=== PATIENT | male | born 1955 | race Caucasian/White ===

== ENCOUNTER 2017-05-20 22:42 | Inpatient (IN) | payer MEDICARE, SELFPAY ==
[2017-05-20 22:45] VITALS: BP 86/35; PULSE 105; RESP 15; O2SAT 97; BMI 45.0
[2017-05-20 22:54] VITALS: BP 126/43; PULSE 109; RESP 22; O2SAT 97
[2017-05-20 22:58] VITALS: O2SAT 97
--- NOTE | 2017-05-20 23:01 | CT_ITS ---
STUDY: CT ABDOMEN AND PELVIS WITHOUT CONTRAST REASON FOR EXAM: Male, 62 years old. Right groin pain. Difficulty with urination RADIATION DOSAGE (If Supplied By Facility): CTDIvol = ( 24.18 ) mGy, DLP = ( 1328.96 ) mGycm TECHNIQUE: Transaxial images were obtained from the dome of the diaphragm to the symphysis pubis without oral contrast, and without intravenous contrast. Sagittal and coronal images were reconstructed. Individualized dose optimization techniques were used for this CT. COMPARISON: None. FINDINGS: Mild by basilar dependent atelectasis versus scar formation. Calcified nodule abutting the right posterior lateral pleura. The visualized portions of the heart are within normal limits. Normal liver. Normal gallbladder and extrahepatic biliary system. Normal spleen. Normal pancreas. Normal bilateral adrenal glands. Normal right kidney. Normal left kidney. Normal ureters. Normal visualized stomach. Normal small intestine. Normal colon. The appendix is visualized and appears normal. Normal abdominal aorta. Normal inferior vena cava. Shotty root of the mesentery and retroperitoneal lymph nodes are noted. Normal urinary bladder. Uterus is surgically absent. No free pelvic fluid Normal abdominal wall. Multilevel degenerative change of the spine. Postoperative change from L4-S1 anterior spinal fusion. CT/Abdomen/Pelvis without Cont IMPRESSION: 1. Shotty root of the mesentery and mesenteric retroperitoneal lymph nodes, likely reactive in nature. Continued surveillance is recommended to rule out the possibility of a metastatic process. Electronically Signed: Jacob Allen MD at 1:22 EST Tel , Service support ,
--- NOTE | 2017-05-20 23:01 | EKG12_ITS ---
Test Reason : WEAKNESS Blood Pressure : / mmHG Vent. Rate : 102 BPM Atrial Rate : 102 BPM P-R Int : 160 ms QRS Dur : 094 ms QT Int : 354 ms P-R-T Axes : 060 053 057 degrees QTc Int : 461 ms Sinus tachycardia Otherwise normal ECG Confirmed by MELINA CARPENTER, SANTA ([id number]), writer editor MARCO PERRY ([id number] on 05/23/2017 3:50:47 PM Referred By: BB Confirmed By:SANTA SUMMERS MD
--- NOTE | 2017-05-20 23:03 | ED.VISSUMM ---
- ER Visit Summary Date of Service: 05/20/17 Chief Complaint: Abdominal pain History of Present Illness: The patient is a 62 M with couple days of diffuse abdominal discomfort that he describes more like feeling full, bloating, pressure. It is not severe. Associated with nausea, no vomiting or fevers. He has become more short of breath than usual, he has COPD and always wheezes but states he does not feel like he is necessarily wheezing anymore, although yesterday he had an episode of coughing with some clear sputum production that was more than usual. One bout of diarrhea today without blood or melena. He has a history of several back surgeries due to degenerative disc problems and had some hardware removal, leaving him with peripheral neuropathy in his legs, for which he is on gabapentin and nortriptyline, he has had no prior abdominal surgeries. Never had this discomfort before. States that he is urinating very little despite drinking water, although he really is not eating very much. He has no other urinary symptoms and does not have symptoms of urinary retention. No hematuria. With regards to his medications, he states that his furosemide was changed about 6 months ago, he does not know why, but otherwise no recent major changes. He takes a baby aspirin daily but no anticoagulation. Physical Examination: Ill-appearing. Obese. Initial systolic blood pressure was 80, but on repeat before treatment it is 126/43. Mildly tachycardic and mildly tachypneic but in no respiratory distress. He has diffuse expiratory wheezes that are relatively mild. Heart is regular, mildly tachycardic, no murmur. Abdomen is soft, hypoactive bowel sounds, nontender throughout. Difficult to evaluate whether he has objective distention because of his obesity. His abdomen is soft. No CVA tenderness. Trace bilateral lower extremity edema that he states is chronic and stable. Test Results: Significant leukocytosis with leftward shift, acute renal failure with creatinine 3.64 and BUN 52, mild hyperbilirubinemia with otherwise normal LFTs, elevated lactate at 5.3, initial blood work included venous pH as well which was within normal limits at 7.39, I suspect due to a mixture of metabolic acidosis and respiratory alkalosis. EKG normal. CXR negative for acute finding. Emergency Department Course and Treatment: After initial evaluation, the told us that he neglected to give us some additional history regarding sores on his scrotum for the past 3 or 4 months. Discussed this with the patient and evaluated him further. He states they have been coming and going, they are painful, when it ruptures it bleeds dark blood only, and seems to get better. He said something to his doctor at the [place] who prescribed him an antifungal, no one has looked at it yet however, from a medical standpoint. He states it has been worse for the past 1-2 days, when it is sore it has bloody-watery discharge but he has noticed no pus. He states his scrotum hurts more than his abdomen. On exam, there is a superficial open sore at the right lateral upper scrotum. The entire scrotum is erythematous, he states it is tender to palpation but there is no subcutaneous emphysema or necrotic tissue or significant scrotal edema although he states he has had scrotal edema with this before. There are some areas of superficial skin erosion/irritation toward the inguinal intertriginous areas. Labs are pending, cultures and lactate are added, his venous pH is within normal limits at 7.39, and his chest x-ray is unremarkable. His blood pressure is now down into the 90s so his IV fluid is changed to bolus. He is severely claustrophobic and cannot tolerate CT. I think the benefits of obtaining abdominal and pelvic imaging in this scenario outweight the risks of mild sedation; therefore, he is being given anxiolysis with Versed prior to taking him to CT, as well as empiric triple antibiotic therapy to cover possible Michael's gangrene. However, although CT results are not back yet, upon looking at the imaging which initially did not include the scrotum so he was sent back for a repeat scan of the pelvis to include the scrotum, which was very distal to his bony pelvis because of his obesity, I do not see any subcutaneous air and so my suspicion for true Michael's is much lower. Additionally, clinically, there is no SQ emphysema and no evidence of necrotic tissue or scrotal edema or abscess. CT is still pending, discussed with Dr. Hamilton for admission to ICU. Still hypotensive after a liter of fluid so being bolused with a second liter, the third is also ordered. However, I am feeling very cautious about giving him 30 cc/kg given his obesity and renal failure, this could easily put him in the pulmonary edema. Before 2nd liter is finished, his SBP is now 98, improving. Initial CT abd/pelv basically negative except for some mild lymphadenopathy. CT pelvis returned after pt left dept; shows no SQ air, but does show scrotal skin thickening. Prior to leaving ED, and prior to completion of second liter IV fluid bolus (less than 30 cc/kg) -- repeat volume and tissue perfusion assessment: Temp 97.2, heart rate 99, blood pressure 98/55, respirations 16, pulse ox 97% on room air Heart is regular, no murmur, no tachycardia; lungs are diminished similar to prior, mild expiratory wheezing diffusely, less than before Brisk cap refill distally all 4 extremities Strong bilateral radial pulses Skin is pink, dry, well-perfused without cyanosis Treatment Plan: Critical care monitoring, empiric antibiotic therapy, further testing and evaluation inpatient Disposition: Admit ICU Impression: Septic shock Acute renal failure Scrotal cellulitis This note was generated with [employer] dictation software. It may contain incorrect words, spelling, and punctuation that were not noted in review of the chart prior to signing ED Disposition - Plan for ED Patient: Disposition: Acute Care Hospital [facility] Chief Complaint: Abd Pain
--- NOTE | 2017-05-20 23:08 | ED.DCSUM_ITS ---
- ER Visit Summary Date of Service: 05/20/17 Chief Complaint: Abdominal pain History of Present Illness: The patient is a 62 M with couple days of diffuse abdominal discomfort that he describes more like feeling full, bloating, pressure. It is not severe. Associated with nausea, no vomiting or fevers. He has become more short of breath than usual, he has COPD and always wheezes but states he does not feel like he is necessarily wheezing anymore, although yesterday he had an episode of coughing with some clear sputum production that was more than usual. One bout of diarrhea today without blood or melena. He has a history of several back surgeries due to degenerative disc problems and had some hardware removal, leaving him with peripheral neuropathy in his legs, for which he is on gabapentin and nortriptyline, he has had no prior abdominal surgeries. Never had this discomfort before. States that he is urinating very little despite drinking water, although he really is not eating very much. He has no other urinary symptoms and does not have symptoms of urinary retention. No hematuria. With regards to his medications, he states that his furosemide was changed about 6 months ago, he does not know why, but otherwise no recent major changes. He takes a baby aspirin daily but no anticoagulation. Physical Examination: Ill-appearing. Obese. Initial systolic blood pressure was 80, but on repeat before treatment it is 126/43. Mildly tachycardic and mildly tachypneic but in no respiratory distress. He has diffuse expiratory wheezes that are relatively mild. Heart is regular, mildly tachycardic, no murmur. Abdomen is soft, hypoactive bowel sounds, nontender throughout. Difficult to evaluate whether he has objective distention because of his obesity. His abdomen is soft. No CVA tenderness. Trace bilateral lower extremity edema that he states is chronic and stable. Test Results: Significant leukocytosis with leftward shift, acute renal failure with creatinine 3.64 and BUN 52, mild hyperbilirubinemia with otherwise normal LFTs, elevated lactate at 5.3, initial blood work included venous pH as well which was within normal limits at 7.39, I suspect due to a mixture of metabolic acidosis and respiratory alkalosis. EKG normal. CXR negative for acute finding. Emergency Department Course and Treatment: After initial evaluation, the told us that he neglected to give us some additional history regarding sores on his scrotum for the past 3 or 4 months. Discussed this with the patient and evaluated him further. He states they have been coming and going, they are painful, when it ruptures it bleeds dark blood only, and seems to get better. He said something to his doctor at the [place] who prescribed him an antifungal, no one has looked at it yet however, from a medical standpoint. He states it has been worse for the past 1-2 days, when it is sore it has bloody-watery discharge but he has noticed no pus. He states his scrotum hurts more than his abdomen. On exam, there is a superficial open sore at the right lateral upper scrotum. The entire scrotum is erythematous, he states it is tender to palpation but there is no subcutaneous emphysema or necrotic tissue or significant scrotal edema although he states he has had scrotal edema with this before. There are some areas of superficial skin erosion/irritation toward the inguinal intertriginous areas. Labs are pending, cultures and lactate are added , his venous pH is within normal limits at 7.39, and his chest x-ray is unremarkable. His blood pressure is now down into the 90s so his IV fluid is changed to bolus. He is severely claustrophobic and cannot tolerate CT. I think the benefits of obtaining abdominal and pelvic imaging in this scenario outweight the risks of mild sedation; therefore, he is being given anxiolysis with Versed prior to taking him to CT, as well as empiric triple antibiotic therapy to cover possible Michael's gangrene. However, although CT results are not back yet, upon looking at the imaging which initially did not include the scrotum so he was sent back for a repeat scan of the pelvis to include the scrotum, which was very distal to his bony pelvis because of his obesity, I do not see any subcutaneous air and so my suspicion for true Michael's is much lower. Additionally, clinically, there is no SQ emphysema and no evidence of necrotic tissue or scrotal edema or abscess. CT is still pending, discussed with Dr. Hamilton for admission to ICU. Still hypotensive after a liter of fluid so being bolused with a second liter, the third is also ordered. However, I am feeling very cautious about giving him 30 cc/kg given his obesity and renal failure, this could easily put him in the pulmonary edema. Before 2nd liter is finished, his SBP is now 98, improving. Initial CT abd/pelv basically negative except for some mild lymphadenopathy. CT pelvis returned after pt left dept; shows no SQ air, but does show scrotal skin thickening. Prior to leaving ED, and prior to completion of second liter IV fluid bolus ( less than 30 cc/kg) -- repeat volume and tissue perfusion assessment: Temp 97.2, heart rate 99, blood pressure 98/55, respirations 16, pulse ox 97 % on room air Heart is regular, no murmur, no tachycardia; lungs are diminished similar to prior, mild expiratory wheezing diffusely, less than before Brisk cap refill distally all 4 extremities Strong bilateral radial pulses Skin is pink, dry, well-perfused without cyanosis Treatment Plan: Critical care monitoring, empiric antibiotic therapy, further testing and evaluation inpatient Disposition: Admit ICU Impression: Septic shock Acute renal failure Scrotal cellulitis This note was generated with [email or web address] dictation software. It may contain incorrect words, spelling, and punctuation that were not noted in review of the chart prior to signing ED Disposition - Plan for ED Patient: Disposition: Acute Care Hospital [facility] Chief Complaint: Abd Pain
--- NOTE | 2017-05-20 23:15 | RAD_ITS ---
STUDY: X-RAY CHEST REASON FOR EXAM: Male, 62 years old. Shortness of breath. Dyspnea. TECHNIQUE: Single AP portable view of the chest. COMPARISON: None. FINDINGS: There is mild atelectasis in the lung bases. There is no demonstrated pulmonary infiltrate. There is no demonstrated pleural abnormality. Normal size heart. Normal mediastinum and raquel. Normal visualized pulmonary arteries. Normal visualized aortic arch and descending thoracic aorta. There are diffuse degenerative changes of the visualized thoracic spine. Normal visualized ribs, clavicles, and shoulders. There is no demonstrated abnormality of the visualized soft tissue structures of the upper abdomen. RAD/Chest 1 View (Portable) IMPRESSION: No evidence for acute cardiopulmonary pathology. Electronically Signed: Jose Guadalupe Ngo MD at 0:19 EST , Service support ,
[2017-05-20 23:16] LABS: Blood Gas Specimen Type VEN; O2 Delivery Device Room Air; SITE R Brachial; Time Given 2312; VBG BASE EXCESS -3 mmol/L (-1.0-3.5); VBG Bicarbonate 22 mmol/L (22-26); VBG Oxygen Content 23 mmol/L (23-33); VBG PO2 48 mmHg (25-40); VBG SO2 83 % (50-70); VBG pH 7.39 (7.32-7.42)
[2017-05-20] MEDS: 0.9% Normal Saline 1,000 ML 125 ML IV (23:16)
[2017-05-20] MEDS: Ondansetron 4 MG/2 ML Vial IV (23:16)
[2017-05-20 23:30] LABS: ALB/GLOB Ratio 0.5 RATIO (0.9-2.4); AST(SGOT) 34 U/L (15-37); Alanine Aminotransfer ALT/SGPT 60 U/L (16-61); Albumin, Serum 2.5 g/dL (3.2-5.0); Alkaline Phosphatase 52 U/L (45-117); Anion Gap 14 (5-15); BUN 52 mg/dL (7-18); BUN/Creat Ratio 14.3 RATIO (10-20); Calcium,Total 8.1 mg/dL (8.5-10.1); Chloride 98 mmol/L (98-107); Creatinine, Serum 3.64 mg/dL (0.70-1.30); EST Glomerular Filtration Rate 18 mL/min (>60); Est Glom Filt Rate - Afr Amer 22 mL/min (>60); Estimated Creatinine Clearance 25.47 ml/min; Globulin 5.3 g/dL (2.2-4.2); Glucose 177 mg/dL (74-106); Lipase 98 U/L (73-393); Potassium 4.7 mmol/L (3.5-5.1); Protein, Total 7.8 g/dL (6.4-8.2); Sodium Level 133 mmol/L (136-145)
[2017-05-20 23:36] LABS: Absolute Lymphocyte Count 0.87 X10^3/ul (0.83-4.51); Absolute Neutrophil Count 12.3 X10^3/uL (2.0-7.7); Basophil# 0.03 X10^3/uL; Basophil% 0.2 % (0-1); Eosinophil# 0.52 X10^3/uL; Eosinophils% 3.6 % (0-5); Hematocrit 40.2 % (40-54); Hemoglobin 13.4 g/dl (13.0-16.5); Lymphocyte # 0.87 X10^3/ul (4.0); Mean Corp Hgb Conc 33.3 g/gl (32-36); Mean Platelet Vol. 10.8 fl (6.2-12.0); Monocyte# 0.64 X10^3/uL; Monocyte% 4.4 % (0-10); Neutrophil # 12.29 X10^3/uL (2.7-7.7); Neutrophil % 85.5 % (47-70); Platelet Count 172 K/mm3 (150-450); RBC Distribution Width CV 14.1 % (11.6-14.6); RBC Distribution Width SD 50.6 fl (35.1-43.9); Red Blood Count 4.06 M/mm3 (4.6-6.2); White Blood Count 14.4 K/mm3 (4.4-11.0)
[2017-05-20 23:43] LABS: POSITIVE COUNT NO; POSITIVE DIFFERENTIAL NO; POSITIVE MORPHOLOGY NO
[2017-05-20] MEDS: Midazolam 2 MG/2 ML Syringe 3 MG IV (23:47)
[2017-05-21] VITALS (27 sets, daily range): BP systolic 82–114; BP diastolic 49–70; PULSE 96–109; RESP 16–26; TEMP 36.1–37.1; O2SAT 89–99; BMI 46.7
--- NOTE | 2017-05-21 00:31 | CT_ITS ---
STUDY: CT PELVIS WITHOUT CONTRAST REASON FOR EXAM: Male, 62 years old. Scrotal pain and swelling RADIATION DOSAGE (If Supplied By Facility): CTDIvol = ( 28.21 ) mGy, DLP = ( 2356.95 ) mGycm TECHNIQUE: Transaxial imaging of the pelvis was performed with oral contrast, and without intravenous administration of contrast material. Individualized dose optimization techniques were used for this CT. COMPARISON: None. FINDINGS: Normal urinary bladder. No free pelvic fluid. Normal visualized small intestine. Minimal diverticulosis of the sigmoid colon without focal inflammation. The appendix is not definitively visualized. There is no pericecal inflammation. There is no pelvic fluid. There is no pelvic mass lesion or lymphadenopathy. Atherosclerotic calcification of the pelvic vasculature. Normal abdominal wall. Mild skin thickening of the scrotum. Multilevel degenerative change of the visualized lower lumbar spine. CT/Pelvis without IV Contrast IMPRESSION: 1. Mild sigmoid colonic diverticulosis with no CT evidence of acute articularis. 2. Mild skin thickening of the scrotum. Electronically Signed: Jacob Allen MD at 2:22 EST Tel , Service support ,
--- NOTE | 2017-05-21 00:32 | ED.RN ---
MD AWARE OF BP.
[2017-05-21 01:09] LABS: Lactic Acid 5.3 mmol/L (0.4-2.0)
--- NOTE | 2017-05-21 01:26 | ED.RN ---
THIS RN RECEIVED A CALL FROM LAB, PT LACTIC ACID LEVEL 5.3. DR. MARTINEZ AND ROSSY DEVRIES INFORMED.
[2017-05-21] MEDS: 0.9% Normal Saline 1,000 ML 999 ML IV ×2 (01:27→01:34)
[2017-05-21 01:28] LABS: Bacteria 0 SEEN /hpf (None Seen); Mucous, Urine 0 SEEN /hpf (<or=2+)
[2017-05-21 01:31] LABS: Color, Urine Amber (Yellow); Glucose, Dipstick Normal (Normal); Ketone-Dipstick 5 mg/dl (Negative); Leukocyte Esterase-Dipstick 100 /ul (Negative); Nitrite-Dipstick Positive (Negative); Occult Blood-Urine 10 /ul (Negative); Protein-Dipstick 30 mg/dl (Negative); Specific Gravity, Urine 1.025 (1.002-1.030); Urine Clarity Sl. Cloudy (Clear); Urine Urobilinogen 8 mg/dl (Normal)
[2017-05-21 01:37] LABS: Urine Bilirubin Dipstick 6 mg/dL (Negative)
--- NOTE | 2017-05-21 01:38 | PCM.HP.STD ---
Problem List (1) DMII (diabetes mellitus, type 2) Status: Acute (2) Severe sepsis Status: Acute (3) Cellulitis Status: Acute (4) HTN (hypertension) Status: Chronic History of Present Illness Date of Admission: 05/21/17 Chief Complaint: Severe sepsis The patient is a 62 year old male w/ h/o DMII, HTN, COPD, and cellulits is admitted for severe sepsis secondary to cellulitis. He has been treated by his PCP for scrotal cellulitis. He noted occasional bloody drainage at the cellulitis site. Nothing appeared to make it better or worse despite taking the antifungal cream. He also has worsening bloating sensation in his abdominal area. Bloating has gotten worse in the last few hours. Bloating caused dull-aching pain and was severe. Bloating was also associated with nausea. He denies any chill. He also noted minimal UOP but he also had limited fluid intake. He went to the ED for further evaluation. Past Medical History Past Medical History (Chronic Problems): Chronic Problems HTN (hypertension) (Chronic) Allergies Penicillins [PCN] Allergy (Verified 05/20/17 22:47) Anaphylaxis shellfish derived Allergy (Verified 11/09/15 17:13) Rash Home Medications: Ambulatory Orders Medication Instructions Recorded Aspirin 81 mg PO DAILY 05/20/17 Atorvastatin Calcium 40 mg PO QHS 05/20/17 Cholecalciferol (Vitamin D3) 5,000 unit PO DAILY 05/20/17 [Vitamin D3] Folic Acid 0.4 mg PO DAILY 05/20/17 Furosemide [Lasix] 20 mg PO DAILY 05/20/17 Gabapentin [Neurontin] 600 mg PO TID 05/20/17 Glipizide [Glucotrol] 10 mg PO DAILY 05/20/17 Lisinopril [Zestril] 20 mg PO DAILY 05/20/17 Metformin HCl 1,000 mg PO BID 05/20/17 Nortriptyline HCl 20 mg PO BID 05/20/17 Surgical History: noncontributory Smoking Status: Current every day smoker Alcohol: None Drugs: None - *Family History Maternal History Items: No pertinent history Review of Systems Constitutional: Denies: Chills, Fever, Weight Change HEENT: Denies: Head Aches, Sinus Congestion, Sinus Drainage Cardiovascular: Denies: Chest Pain, Palpitations Respiratory: Denies: Cough, Shortness of breath at rest, Sputum production Gastrointestinal: Reports: Abdominal Pain, Nausea, Vomiting Genitourinary: Reports: Retention. Denies: Dysuria Musculoskeletal: Denies: Joint Pain, Joint Tenderness Skin: Denies: Rash, Wounds Neurological: Denies: Numbness, Tingling, Focal weakness Psychiatric: Denies: Anxiety, Depression, Homicidal Ideations, Suicidal Ideations Hematologic/ Lymphatic: Denies: Easy Bruising, Easy Bleeding VTE Information - Inpt Only VTE Present on Admission: No VTE Mechan Device Prophylaxis: SCD's VTE Pharm Prophylaxis ordered?: Yes Patient Problems: Active and Suspected Problems DMII (diabetes mellitus, type 2) (Acute) Severe sepsis (Acute) Cellulitis (Acute) - Physical Exam General: Alert, Oriented x3, Cooperative HEENT: Atraumatic, PERRLA, EOMI, Normocephalic Neck: Supple, No JVD, Negative Carotid Bruits Lungs: Clear to auscultation, Normal air movement Cardiovascular: Regular rate, No murmurs Abdomen: Bowel Sounds Present, Soft, Non Tender Extremities: No edema, Capillary Refill Less than 3 Seconds Skin: No rashes, No breakdown Musculoskeletal: No Tenderness to Palpation of Joints or Extremities Neurological: Cranial nerves II-XII grossly intact Psych/Mental Status: Normal Affect, Appropriate Vital Signs Pulse Resp BP Pulse Ox 96 25 H 82/50 L 96 05/21/17 01:00 05/21/17 01:00 05/21/17 01:00 05/21/17 01:00 Oxygen Delivery Method Room Air Weight: 163.293 kg Body Mass Index (BMI) 45.0 Laboratory Tests Past 24 Hrs 05/20/17 05/20/17 05/20/17 01:20 23:05 23:05 WBC 14.4 H RBC 4.06 L Hgb 13.4 Hct 40.2 MCV 99.0 H MCH 33.0 H MCHC 33.3 RDW 14.1 RDW Differential 50.6 H Plt Count 172 MPV 10.8 Immature Gran % (Auto) 0.300 Neut % (Auto) 85.5 H Lymph % (Auto) 6.0 L [place] % (Auto) 4.4 Eos % (Auto) 3.6 Baso % (Auto) 0.2 Absolute Neuts (auto) 12.3 H Absolute Lymphs (auto) 0.87 Total Counted Not Reportable Specimen Type Sample Site VBG pH VBG pO2 VBG O2 Sat (Calc) VBG O2 Content VBG Base Excess POC Mix VBG pCO2 Pt Tmp O2 Delivery Device Blood Gas Notified Whom Blood Gas Notified Time Sodium 133 L Potassium 4.7 Chloride 98 Carbon Dioxide 21.0 Anion Gap 14 BUN 52 H Creatinine 3.64 H Estim Creat Clear Calc 25.47 Est GFR (MDRD) Af Amer 22 L Est GFR (MDRD) Non-Af 18 L BUN/Creatinine Ratio 14.3 Glucose 177 H Lactic Acid Calcium 8.1 L Total Bilirubin 1.30 H AST 34 ALT 60 Alkaline Phosphatase 52 Troponin I < 0.02 Total Protein 7.8 Albumin 2.5 L Globulin 5.3 H Albumin/Globulin Ratio 0.5 L Lipase 98 Urine Color Brenda Urine Clarity Sl. Cloudy Urine pH 5.0 Ur Specific [place] 1.025 Urine Protein 30 H Urine Glucose (UA) Normal Urine Ketones 5 H Urine Occult Blood 10 H Urine Nitrite Positive H Urine Bilirubin 6 H Urine Urobilinogen 8 H Ur Leukocyte Esterase 100 H Urine RBC Pending Urine WBC Pending Ur Squamous Epith Cells Pending Urine Bacteria Pending Urine Mucus Pending 05/20/17 05/20/17 23:05 23:13 WBC RBC Hgb Hct MCV MCH MCHC RDW RDW Differential Plt Count MPV Immature Gran % (Auto) Neut % (Auto) Lymph % (Auto) [place] % (Auto) Eos % (Auto) Baso % (Auto) Absolute Neuts (auto) Absolute Lymphs (auto) Total Counted Specimen Type [place] Sample Site R Brachial VBG pH 7.39 VBG pO2 48 H VBG O2 Sat (Calc) 83 H VBG O2 Content 23 VBG Base Excess -3 L POC Mix VBG pCO2 Pt Tmp 37.0 L O2 Delivery Device Room Air Blood Gas Notified Whom ED Blood Gas Notified Time 2312 Sodium Potassium Chloride Carbon Dioxide Anion Gap BUN Creatinine Estim Creat Clear Calc Est GFR (MDRD) Af Amer Est GFR (MDRD) Non-Af BUN/Creatinine Ratio Glucose Lactic Acid 5.3 H* Calcium Total Bilirubin AST ALT Alkaline Phosphatase Troponin I Total Protein Albumin Globulin Albumin/Globulin Ratio Lipase Urine Color Urine Clarity Urine pH Ur Specific [place] Urine Protein Urine Glucose (UA) Urine Ketones Urine Occult Blood Urine Nitrite Urine Bilirubin Urine Urobilinogen Ur Leukocyte Esterase Urine RBC Urine WBC Ur Squamous Epith Cells Urine Bacteria Urine Mucus Assessment/Plan Active and Suspected Problems DMII (diabetes mellitus, type 2) (Acute) Severe sepsis (Acute) Cellulitis (Acute) 62 year old male w/ h/o DMII, HTN, COPD, and cellulits is admitted for severe sepsis secondary to cellulitis. 1) Severe sepsis secondary to cellulitis: Scrotal cellulitis noted. Less likely Michael's gangrene. CT abd/pelv basically negative except for some mild lymphadenopathy. Will start aztreonam, flagyl and vancomycin for triple antibiotic coverage. Hydration but with caution given ARF. Probably can transfer out of ICU once hypotension resolves. 2) ARF: Most likely secondary to ischemic injury secondary to relative hypotension from sepsis and meds. Will hold SBP meds. Allow for permissive HTN for renal perfusion. Hydration. Supportive care, renal dose meds, avoid nephrotoxic drugs, etc. 3) Lactic acidosis: Will repeat level. Hydration. Supportive care. 4) Chronic issues: DMII: hold metformin given lactic acidosis and ARF. COPD: Resume home meds. 5) Prophylaxis: SCD / heparin.
[2017-05-21 01:39] LABS: Hyaline Cast 5-10 SEEN /lpf (0-5)
[2017-05-21 01:40] LABS: Amorphous Sediment 2+; Red Blood Cells-Urine 0-5 SEEN /hpf (0-5); Squamous Epithelial Cells - UA 0-5 SEEN /hpf (0-5); White Blood Cells 0-5 SEEN /hpf (0-5)
[2017-05-21 04:10] LABS: Reflex Lactate? Y
[2017-05-21 04:44] LABS: Lactic Acid 1.2 mmol/L (0.4-2.0)
[2017-05-21 04:50] LABS: Hematocrit 37.1 % (40-54); Hemoglobin 12.3 g/dl (13.0-16.5); Mean Corp Hgb Conc 33.2 g/gl (32-36); Mean Corpuscular Volume 99.5 fL (80-94); Mean Platelet Vol. 10.6 fl (6.2-12.0); Platelet Count 137 K/mm3 (150-450); RBC Distribution Width CV 14.2 % (11.6-14.6); RBC Distribution Width SD 51.1 fl (35.1-43.9); Red Blood Count 3.73 M/mm3 (4.6-6.2); White Blood Count 11.3 K/mm3 (4.4-11.0)
[2017-05-21 05:00] LABS: Scan Indicated on CBC? Y/N NO
[2017-05-21 05:04] LABS: Anion Gap 4 (5-15); BUN 50 mg/dL (7-18); BUN/Creat Ratio 17.3 RATIO (10-20); Calcium,Total 7.4 mg/dL (8.5-10.1); Chloride 103 mmol/L (98-107); Creatinine, Serum 2.89 mg/dL (0.70-1.30); EST Glomerular Filtration Rate 24 mL/min (>60); Est Glom Filt Rate - Afr Amer 29 mL/min (>60); Estimated Creatinine Clearance 32.08 ml/min; Glucose 179 mg/dL (74-106); Potassium 4.1 mmol/L (3.5-5.1); Sodium Level 132 mmol/L (136-145)
[2017-05-21] MEDS: 0.9% Normal Saline 1,000 ML 125 ML IV ×3 (05:22→23:06)
[2017-05-21 05:32] LABS: Probe Check PASS
[2017-05-21 05:33] LABS: M R Staph aureus DNA By PCR POSITIVE (Negative)
--- NOTE | 2017-05-21 06:35 | PCM.CON.CC ---
Reason for Consult Date of Consultation: 05/21/17 Reason for Consultation: Sepsis History of Present Illness: The patient is a 62-year-old male, with a history as outlined below, who presented to the emergency department on May 20 with a number of nonspecific, generalized complaints, including malaise, fatigue, dizziness, abdominal discomfort, scrotal discomfort and decreased urinary output. The patient states that he has a known history of COPD of unknown severity. 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 He utilizes Symbicort and Spiriva on an outpatient basis. He also reports a history of obstructive sleep apnea, for which she is noncompliant with the use of nocturnal PAP therapy. The patient denies nausea, vomiting or diarrhea. He does report decreased p.o. intake over the last several days. On presentation to the emergency department, the patient was noted to have a blood pressure of 86/35 and was mildly tachycardic. He was, nonetheless, maintaining appropriate oxygen saturations on room air. Initial laboratory evaluation revealed elevated white blood cell count of 14,000. Chemistry profile was notable for a creatinine of 3.64 with a BUN of 52. The patient did have an elevated serum lactate level to 5.3. MRSA screen was positive. Urinalysis was notably positive for nitrites and leukocyte esterase. However, no bacteria was identified. The patient received supplemental IV fluid hydration and his blood pressures responded accordingly. He was started on antibiotics over concern for scrotal cellulitis. The patient was subsequently transferred to the medical intensive care unit for ongoing management. Past Medical History Past Medical History (Chronic Problems): Chronic Problems HTN (hypertension) (Chronic) Allergies Penicillins [PCN] Allergy (Verified 05/20/17 22:47) Anaphylaxis shellfish derived Allergy (Verified 11/09/15 17:13) Rash Home Medications: Ambulatory Orders Medication Instructions Recorded Aspirin 81 mg PO DAILY 05/20/17 Atorvastatin Calcium 40 mg PO QHS 05/20/17 Cholecalciferol (Vitamin D3) 5,000 unit PO DAILY 05/20/17 [Vitamin D3] Folic Acid 0.4 mg PO DAILY 05/20/17 Furosemide [Lasix] 20 mg PO DAILY 05/20/17 Gabapentin [Neurontin] 600 mg PO TID 05/20/17 Glipizide [Glucotrol] 10 mg PO DAILY 05/20/17 Lisinopril [Zestril] 20 mg PO DAILY 05/20/17 Metformin HCl 1,000 mg PO BID 05/20/17 Nortriptyline HCl 20 mg PO BID 05/20/17 Budesonide/Formoterol 160/4.5 2 puff IH BID 05/21/17 Tiotropium [place] [Spiriva 2 puff IH DAILY 05/21/17 Respimat] Surgical History: noncontributory Smoking Status: Current every day smoker Alcohol: None Drugs: None - *Family History Maternal History Items: No pertinent history Review of Systems Constitutional: Reports: Malaise, Weakness, Fatigue Eyes: Denies: Blurred vision, Double vision HEENT: Denies: Head Aches, Sinus Congestion, Sinus Drainage Cardiovascular: Denies: Chest Pain, Palpitations Respiratory: Reports: Shortness of breath upon exertion Gastrointestinal: Reports: Abdominal Pain. Denies: Diarrhea, Nausea, Vomiting Genitourinary: Reports: Retention Musculoskeletal: Denies: Joint Pain, Joint Tenderness Skin: Reports: Rash Neurological: Denies: Numbness, Tingling, Focal weakness Psychiatric: Denies: Anxiety, Depression, Homicidal Ideations, Suicidal Ideations Hematologic/ Lymphatic: Denies: Easy Bruising, Easy Bleeding Patient Problems: Active and Suspected Problems DMII (diabetes mellitus, type 2) (Acute) Severe sepsis (Acute) Cellulitis (Acute) Objective: The patient's most recent lab work, culture data and imaging studies have all been personally reviewed. Blood and urine cultures are pending. CT abdomen/pelvis without contrast revealed mesenteric retroperitoneal lymph nodes, likely reactive in nature. CT pelvis without IV contrast revealed mild sigmoid colonic diverticulosis along with mild skin thickening of the scrotum. - Physical Exam General: Alert, Cooperative, No apparent distress HEENT: Atraumatic, PERRLA, Normocephalic Oral: No Gingival or Mucosal Lesions/ Ulcerations, Dry Mucosa Neck: Supple, No Nodes, Trachea Midline, - - Large neck circumference with redundant soft tissue Lungs: No rhonchi, No wheeze, No rales, Diminished Cardiovascular: Regular rate, Regular Rhythm, Normal S1, Normal S2, No murmurs Abdomen: Bowel Sounds Present, Soft, Non Tender, Obese Extremities: No clubbing, No cyanosis, - - Trace pedal edema Skin: - - Venous stasis dermatitis, scrotal cellulitis/maceration Musculoskeletal: No Muscle Wasting Lymphatic: No Cervical, Supraclavicular, or Inguinal Adenopathy Neurological: Neuro grossly intact Psych/Mental Status: Normal Affect, Appropriate Vital Signs Temp Pulse Resp BP Pulse Ox 97.2 F L 101 H 21 H 99/60 96 05/21/17 06:00 05/21/17 06:00 05/21/17 06:00 05/21/17 06:00 05/21/17 06:00 Oxygen Delivery Method Room Air Weight: 373 lb 14.464 oz Body Mass Index (BMI) 46.7 Intake and Output for Last 24 Hours 05/19/17 05/20/17 05/21/17 23:59 23:59 23:59 Intake Total 1512 / 1512 Output Total 1000 / 1000 Balance 512 / 512 Laboratory Tests Past 24 Hrs 05/21/17 05/21/17 05/21/17 02:30 04:05 04:05 WBC 11.3 H RBC 3.73 L Hgb 12.3 L Hct 37.1 L MCV 99.5 H MCH 33.0 H MCHC 33.2 RDW 14.2 RDW Differential 51.1 H Plt Count 137 L MPV 10.6 Sodium 132 L Potassium 4.1 Chloride 103 Carbon Dioxide 25.0 Anion Gap 4 L BUN 50 H Creatinine 2.89 H Estim Creat Clear Calc 32.08 Est GFR (MDRD) Af Amer 29 L Est GFR (MDRD) Non-Af 24 L BUN/Creatinine Ratio 17.3 Glucose 179 H Lactic Acid Calcium 7.4 L MRSA (PCR) POSITIVE H 05/21/17 04:05 WBC RBC Hgb Hct MCV MCH MCHC RDW RDW Differential Plt Count MPV Sodium Potassium Chloride Carbon Dioxide Anion Gap BUN Creatinine Estim Creat Clear Calc Est GFR (MDRD) Af Amer Est GFR (MDRD) Non-Af BUN/Creatinine Ratio Glucose Lactic Acid 1.2 Calcium MRSA (PCR) Clinical Impression(s) from Imaging Studies Abdomen/Pelvis CT 05/20/17 23:01 IMPRESSION: 1. Shotty root of the mesentery and mesenteric retroperitoneal lymph nodes, likely reactive in nature. Continued surveillance is recommended to rule out the possibility of a metastatic process. Electronically Signed: Jacob Allen MD at 1:22 EST Tel , Service support , Chest X-Ray 05/20/17 23:15 IMPRESSION: No evidence for acute cardiopulmonary pathology. Electronically Signed: Jose Guadalupe Ngo MD at 0:19 EST , Service support , Pelvis CT 05/21/17 00:31 IMPRESSION: 1. Mild sigmoid colonic diverticulosis with no CT evidence of acute articularis. 2. Mild skin thickening of the scrotum. Electronically Signed: Jacob Allen MD at 2:22 EST Tel , Service support , Assessment/Plan Active and Suspected Problems DMII (diabetes mellitus, type 2) (Acute) Severe sepsis (Acute) Cellulitis (Acute) RECOMMENDATIONS: 1. Continue antibiotics 2. Supplemental IV fluid hydration 3. Continue aerosol treatments 4. Recommend empiric BiPAP utilization with naps and nightly 5. Subcutaneous heparin for DVT prophylaxis 6. The patient is stable for transfer out of the intensive care unit IMPRESSIONS: 1. Lactic acidemia secondary to intravascular volume depletion Serum lactate normalized with IV fluid hydration. 2. Mild scrotal cellulitis Continue antibiotics as ordered along with local skin care. 3. Acute on possible chronic renal insufficiency Secondary to intravascular volume depletion. Creatinine has improved following IV fluid hydration. Sahu catheter remains in place. Continue to monitor urine output accordingly. No indication for renal replacement therapy at this time. 4. Questionable COPD of unknown severity/ongoing tobacco utilization Continue scheduled aerosol treatments. Recommend that the patient follow-up in the pulmonary medicine clinic upon discharge from the hospital. He would benefit from baseline pulmonary function testing. Resume Symbicort and Spiriva at discharge. 5. Obstructive sleep apnea The patient reports a history of LILY but is noncompliant with the use of nocturnal PAP therapy. Recommend empiric utilization of BiPAP with naps and nightly while inpatient. Again, the patient should ideally follow up in the pulmonary medicine clinic so that additional workup can be completed. 6. Morbid obesity/hypertension/hyperlipidemia/diabetes Complicates care, management, recovery and prognosis. Hold home antihypertensives for now. Recommend physical therapy evaluation. This note was generated with [employer] software. It may contain incorrect words, spelling, and punctuation that were not noted in checking the note before signing. Code Visit Inpatient E&M: 15477 Init Hosp L3
--- NOTE | 2017-05-21 06:38 | CON.PCM_ITS ---
Reason for Consult Date of Consultation: 05/21/17 Reason for Consultation: Sepsis History of Present Illness: The patient is a 62-year-old male, with a history as outlined below, who presented to the emergency department on May 20 with a number of nonspecific, generalized complaints, including malaise, fatigue, dizziness, abdominal discomfort, scrotal discomfort and decreased urinary output. The patient states that he has a known history of COPD of unknown severity. 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 He utilizes Symbicort and Spiriva on an outpatient basis. He also reports a history of obstructive sleep apnea, for which she is noncompliant with the use of nocturnal PAP therapy. The patient denies nausea, vomiting or diarrhea. He does report decreased p.o. intake over the last several days. On presentation to the emergency department, the patient was noted to have a blood pressure of 86/35 and was mildly tachycardic. He was, nonetheless, maintaining appropriate oxygen saturations on room air. Initial laboratory evaluation revealed elevated white blood cell count of 14,000. Chemistry profile was notable for a creatinine of 3.64 with a BUN of 52. The patient did have an elevated serum lactate level to 5.3. MRSA screen was positive. Urinalysis was notably positive for nitrites and leukocyte esterase. However, no bacteria was identified. The patient received supplemental IV fluid hydration and his blood pressures responded accordingly. He was started on antibiotics over concern for scrotal cellulitis. The patient was subsequently transferred to the medical intensive care unit for ongoing management. Past Medical History Past Medical History (Chronic Problems): Chronic Problems HTN (hypertension) (Chronic) Allergies Penicillins [PCN] Allergy (Verified 05/20/17 22:47) Anaphylaxis shellfish derived Allergy (Verified 11/09/15 17:13) Rash Home Medications: Ambulatory Orders Medication Instructions Recorded Aspirin 81 mg PO DAILY 05/20/17 Atorvastatin Calcium 40 mg PO QHS 05/20/17 Cholecalciferol (Vitamin D3) 5,000 unit PO DAILY 05/20/17 [Vitamin D3] Folic Acid 0.4 mg PO DAILY 05/20/17 Furosemide [Lasix] 20 mg PO DAILY 05/20/17 Gabapentin [Neurontin] 600 mg PO TID 05/20/17 Glipizide [Glucotrol] 10 mg PO DAILY 05/20/17 Lisinopril [Zestril] 20 mg PO DAILY 05/20/17 Metformin HCl 1,000 mg PO BID 05/20/17 Nortriptyline HCl 20 mg PO BID 05/20/17 Budesonide/Formoterol 160/4.5 2 puff IH BID 05/21/17 Tiotropium [place] [Spiriva 2 puff IH DAILY 05/21/17 Respimat] Surgical History: noncontributory Smoking Status: Current every day smoker Alcohol: None Drugs: None - *Family History Maternal History Items: No pertinent history Review of Systems Constitutional: Reports: Malaise, Weakness, Fatigue Eyes: Denies: Blurred vision, Double vision HEENT: Denies: Head Aches, Sinus Congestion, Sinus Drainage Cardiovascular: Denies: Chest Pain, Palpitations Respiratory: Reports: Shortness of breath upon exertion Gastrointestinal: Reports: Abdominal Pain. Denies: Diarrhea, Nausea, Vomiting Genitourinary: Reports: Retention Musculoskeletal: Denies: Joint Pain, Joint Tenderness Skin: Reports: Rash Neurological: Denies: Numbness, Tingling, Focal weakness Psychiatric: Denies: Anxiety, Depression, Homicidal Ideations, Suicidal Ideations Hematologic/ Lymphatic: Denies: Easy Bruising, Easy Bleeding Patient Problems: Active and Suspected Problems DMII (diabetes mellitus, type 2) (Acute) Severe sepsis (Acute) Cellulitis (Acute) Objective: The patient's most recent lab work, culture data and imaging studies have all been personally reviewed. Blood and urine cultures are pending. CT abdomen/ pelvis without contrast revealed mesenteric retroperitoneal lymph nodes, likely reactive in nature. CT pelvis without IV contrast revealed mild sigmoid colonic diverticulosis along with mild skin thickening of the scrotum. - Physical Exam General: Alert, Cooperative, No apparent distress HEENT: Atraumatic, PERRLA, Normocephalic Oral: No Gingival or Mucosal Lesions/ Ulcerations, Dry Mucosa Neck: Supple, No Nodes, Trachea Midline, - - Large neck circumference with redundant soft tissue Lungs: No rhonchi, No wheeze, No rales, Diminished Cardiovascular: Regular rate, Regular Rhythm, Normal S1, Normal S2, No murmurs Abdomen: Bowel Sounds Present, Soft, Non Tender, Obese Extremities: No clubbing, No cyanosis, - - Trace pedal edema Skin: - - Venous stasis dermatitis, scrotal cellulitis/maceration Musculoskeletal: No Muscle Wasting Lymphatic: No Cervical, Supraclavicular, or Inguinal Adenopathy Neurological: Neuro grossly intact Psych/Mental Status: Normal Affect, Appropriate Vital Signs Temp Pulse Resp BP Pulse Ox 97.2 F L 101 H 21 H 99/60 96 05/21/17 06:00 05/21/17 06:00 05/21/17 06:00 05/21/17 06:00 05/21/17 06:00 Oxygen Delivery Method Room Air Weight: 373 lb 14.464 oz Body Mass Index (BMI) 46.7 Intake and Output for Last 24 Hours 05/19/17 05/20/17 05/21/17 23:59 23:59 23:59 Intake Total 1512 / 1512 Output Total 1000 / 1000 Balance 512 / 512 Laboratory Tests Past 24 Hrs 05/21/17 05/21/17 05/21/17 02:30 04:05 04:05 WBC 11.3 H RBC 3.73 L Hgb 12.3 L Hct 37.1 L MCV 99.5 H MCH 33.0 H MCHC 33.2 RDW 14.2 RDW Differential 51.1 H Plt Count 137 L MPV 10.6 Sodium 132 L Potassium 4.1 Chloride 103 Carbon Dioxide 25.0 Anion Gap 4 L BUN 50 H Creatinine 2.89 H Estim Creat Clear Calc 32.08 Est GFR (MDRD) Af Amer 29 L Est GFR (MDRD) Non-Af 24 L BUN/Creatinine Ratio 17.3 Glucose 179 H Lactic Acid Calcium 7.4 L MRSA (PCR) POSITIVE H 05/21/17 04:05 WBC RBC Hgb Hct MCV MCH MCHC RDW RDW Differential Plt Count MPV Sodium Potassium Chloride Carbon Dioxide Anion Gap BUN Creatinine Estim Creat Clear Calc Est GFR (MDRD) Af Amer Est GFR (MDRD) Non-Af BUN/Creatinine Ratio Glucose Lactic Acid 1.2 Calcium MRSA (PCR) Clinical Impression(s) from Imaging Studies Abdomen/Pelvis CT 05/20/17 23:01 IMPRESSION: 1. Shotty root of the mesentery and mesenteric retroperitoneal lymph nodes, likely reactive in nature. Continued surveillance is recommended to rule out the possibility of a metastatic process. Electronically Signed: Jacob Allen MD at 1:22 EST Tel , Service support , Chest X-Ray 05/20/17 23:15 IMPRESSION: No evidence for acute cardiopulmonary pathology. Electronically Signed: Jose Guadalupe Ngo MD at 0:19 EST , Service support , Pelvis CT 05/21/17 00:31 IMPRESSION: 1. Mild sigmoid colonic diverticulosis with no CT evidence of acute articularis. 2. Mild skin thickening of the scrotum. Electronically Signed: Jacob Allen MD at 2:22 EST Tel , Service support , Assessment/Plan Active and Suspected Problems DMII (diabetes mellitus, type 2) (Acute) Severe sepsis (Acute) Cellulitis (Acute) RECOMMENDATIONS: 1. Continue antibiotics 2. Supplemental IV fluid hydration 3. Continue aerosol treatments 4. Recommend empiric BiPAP utilization with naps and nightly 5. Subcutaneous heparin for DVT prophylaxis 6. The patient is stable for transfer out of the intensive care unit IMPRESSIONS: 1. Lactic acidemia secondary to intravascular volume depletion Serum lactate normalized with IV fluid hydration. 2. Mild scrotal cellulitis Continue antibiotics as ordered along with local skin care. 3. Acute on possible chronic renal insufficiency Secondary to intravascular volume depletion. Creatinine has improved following IV fluid hydration. Sahu catheter remains in place. Continue to monitor urine output accordingly. No indication for renal replacement therapy at this time. 4. Questionable COPD of unknown severity/ongoing tobacco utilization Continue scheduled aerosol treatments. Recommend that the patient follow-up in the pulmonary medicine clinic upon discharge from the hospital. He would benefit from baseline pulmonary function testing. Resume Symbicort and Spiriva at discharge. 5. Obstructive sleep apnea The patient reports a history of LILY but is noncompliant with the use of nocturnal PAP therapy. Recommend empiric utilization of BiPAP with naps and nightly while inpatient. Again, the patient should ideally follow up in the pulmonary medicine clinic so that additional workup can be completed. 6. Morbid obesity/hypertension/hyperlipidemia/diabetes Complicates care, management, recovery and prognosis. Hold home antihypertensives for now. Recommend physical therapy evaluation. This note was generated with [employer] software. It may contain incorrect words, spelling, and punctuation that were not noted in checking the note before signing. Code Visit Inpatient E&M: 85454 Init Hosp L3
--- NOTE | 2017-05-21 06:47 | PN_ITS ---
Patient Problems: Active and Suspected Problems DMII (diabetes mellitus, type 2) (Acute) Severe sepsis (Acute) Cellulitis (Acute) Subjective: Day #1 Aztreonam, Flagyl, T[place]ana Patient is a 62-year-old morbidly obese male with past medical history of hypertension, Diabetes mellitus II, HLD, back surgeries and peripheral neuropathy who has been pain in the perirectal area and the dorsal aspect of the scrotum. He presented to the emergency room at [facility] on 05/20/2017 complaining of nausea, decreased urine OP, SOB, generalized weakness and bloating, and scrotal pain. He denies any vomiting or diarrhea and denies NSAID's or hx of PUD. No sick contacts. His appetite and intake have been decreased recently due to the nausea. He has an increased cough recently. He has been smoking since the age of 13 and now smokes 1/2 PPD. He is sedentary and his cares for him. Vital signs at arrival to the emergency room were pulse rate 105, blood pressure 86/35, respiratory rate 15 and he was 97% saturated on room air. No temp was taken. White blood cell count was 14.4 with a left shift. Hemoglobin was 13.4 and platelets were normal. PH on a venous blood gas was 7.39. Sodium was low at 133 and the BUN was 52 with a creatinine of 3.64. The last creat we have on file is from and the creat was 1.0. Lactic acid was 5.3. Bilirubin was mildly increased at 1.3 but the other LFTs were within normal limits. UA showed 0-[address] scan of the abdomen and pelvis showed mesenteric retroperitoneal lymph nodes, likely reactive, with diverticulosis and mild skin thickening of the scrotum. Chest x- ray showed no infiltrates. 2 blood cultures and a urine culture were sent from the emergency room. He was admitted to the intensive care unit on vancomycin, aztreonam and Flagyl. MRSA nasal swab was positive. He has been afebrile since admission. Heart rate is staying in the high 90s and low 100s. Current blood pressure is 99/60 on no pressors. Respiratory rate is 21 and the pulse ox is 93-96% on room air. Fluid balance is +512 since admission and he has had 1000 cc in urine output. Platelets have dropped to 137,000 and the white blood cell count is currently 11.3. Sodium is 132 and the BUN is down to 50 from 52 and creatinine is 2.89, down from 3.64. Lactic acid is now 1.2. His only complaint to me today is scrotal and perirectal pain. He has a slow stream and nocturia 2-3 times a night. - Physical Exam General: Oriented x3, Cooperative, - - He is slow to answer questions and is awake but also seems to be altered or slow HEENT: Atraumatic, Normocephalic Oral: Moist Mucosa Neck: No Nodes, Trachea Midline Lungs: No rhonchi, No wheeze, No rales, Diminished, - - He is coughing but he is not tachypneic and has no accessory muscle use or conversational dyspnea Cardiovascular: Regular Rhythm, No murmurs, No Gallop, Tachycardic, - - distant heart sounds Abdomen: Bowel Sounds Present, Soft, Distended, Obese, - - last BM was yesterday. Extremities: No cyanosis, No edema, No Calf Tenderness, Diminished Peripheral Pulses - pedal pulses are mildly diminished, - - he has stasis hyperpigmentation of the LE's Skin: - - The dorsal surface of the scrotum is macerated with a few openings in the skin and there is also perirectal maceration with openings in the skin. There is moist malodous DC but no significant erythem, purulent DC or increased warmth to touch. Neurological: Cranial nerves II-XII grossly intact Psych/Mental Status: Appropriate, Flat Affect Vital Signs Temp Pulse Resp BP Pulse Ox 97.2 F L 101 H 21 H 99/60 96 05/21/17 06:00 05/21/17 06:00 05/21/17 06:00 05/21/17 06:00 05/21/17 06:00 Oxygen Delivery Method Room Air Weight: 373 lb 14.464 oz Body Mass Index (BMI) 46.7 Intake and Output for Last 24 Hours 05/19/17 05/20/17 05/21/17 23:59 23:59 23:59 Intake Total 1512 / 1512 Output Total 1000 / 1000 Balance 512 / 512 Laboratory Tests Past 24 Hrs 05/21/17 05/21/17 05/21/17 02:30 04:05 04:05 WBC 11.3 H RBC 3.73 L Hgb 12.3 L Hct 37.1 L MCV 99.5 H MCH 33.0 H MCHC 33.2 RDW 14.2 RDW Differential 51.1 H Plt Count 137 L MPV 10.6 Sodium 132 L Potassium 4.1 Chloride 103 Carbon Dioxide 25.0 Anion Gap 4 L BUN 50 H Creatinine 2.89 H Estim Creat Clear Calc 32.08 Est GFR (MDRD) Af Amer 29 L Est GFR (MDRD) Non-Af 24 L BUN/Creatinine Ratio 17.3 Glucose 179 H Lactic Acid Calcium 7.4 L MRSA (PCR) POSITIVE H 05/21/17 04:05 WBC RBC Hgb Hct MCV MCH MCHC RDW RDW Differential Plt Count MPV Sodium Potassium Chloride Carbon Dioxide Anion Gap BUN Creatinine Estim Creat Clear Calc Est GFR (MDRD) Af Amer Est GFR (MDRD) Non-Af BUN/Creatinine Ratio Glucose Lactic Acid 1.2 Calcium MRSA (PCR) Assessment/Plan Active and Suspected Problems DMII (diabetes mellitus, type 2) (Acute) Severe sepsis (Acute) Cellulitis (Acute) Impressions 1. septic shock due to cellulitis of the scrotum and groin - ruled out. There is no cellulitis on PE. Lactic acid was increased secondary to dehydration and ARF and dropped to normal within 3 hours with just hydration. 2. Cellulitis of the scrotum and groin - mild There is maceration and probable debi intertrigo and maybe mild cellulitis 3. ARF? Acute on CRF? ATN due to dehydration? Improving with dehydration. 4. DM II 5. morbid obesity 6. HTN 7. HLD 8. peripheral neuropathy associated with back surgeries 9. thrombocytopenia - may be due to heparin 10. Nicotine dependence 11. Hyponatremia 12. Suspected LILY 13. dehydration 14. Suspected COPD Check HGBA1C, Mag and phos Check urine sodium and creat DC the Vanco and the Azactam and start Levaquin 250 mg daily - Start Fluconazole keep the perirectal area as dry as possible Recheck lab in the AM Encouraged to consider losing some weight Needs an OP sleep study and PFT's - recommend he follows up with pulmonary post DC Usually follows at the [place] Calorie controlled, cardiac diet Stop Glipizide and use insulin for BS control since he has ARF Check a respiratory panel Overnight trending pulse ox Transfer to PCU If Renal function continues to improve with hydration may be able to DC in the next 48H Code Visit Procedures: 00439 Prolonged InPt Service; first hour
[2017-05-21 07:08] LABS: International Normalized Ratio 1.2; Prothrombin Time (Protime)PT. 15.2 SECONDS (11.7-14.9)
[2017-05-21 07:09] LABS: Partial Thromboplast Time 32.4 Seconds (24.1-36.2)
[2017-05-21 08:06] LABS: Bedside Glucose 138 mg/dL (70-110)
[2017-05-21 09:08] LABS: Magnesium 1.5 mg/dL (1.6-2.6); Phosphorus 2.5 mg/dL (2.5-4.9)
[2017-05-21 09:44] LABS: Hemoglobin A1c 6.2 % (4.2-6.3)
[2017-05-21] MEDS: Gabapentin 600 MG Tablet PO ×3 (11:34→17:11)
[2017-05-21] MEDS: Folic Acid 1 MG Tablet 0.5 MG PO (11:34)
[2017-05-21] MEDS: Aspirin 81 MG TAB.CHEW PO (11:34)
[2017-05-21] MEDS: 0.9% NaCl Peripheral Flush Adult/Peds IV (11:34)
[2017-05-21] MEDS: Nortriptyline 10 MG Capsule 20 MG PO ×2 (11:34→21:51)
[2017-05-21] MEDS: Glucerna Shake 120 ML LIQUID PO (11:39)
[2017-05-21 12:36] LABS: Bedside Glucose 194 mg/dL (70-110)
[2017-05-21] MEDS: levoFLOXacin 500 MG Tablet PO (12:46)
[2017-05-21] MEDS: Fluconazole 100 MG Tablet PO (12:46)
[2017-05-21] MEDS: Ipratropium 0.5 MG/2.5 ML SOLUTION INHALATION ×2 (14:18→19:02)
[2017-05-21 14:32] LABS: Urine Sodium 47 mmol/L (Not Establ.)
[2017-05-21] MEDS: Menthol/Lanolin/Calamine/Znox 113 GM Tube 1 APPLIC TOPICAL ×2 (15:27→21:51)
[2017-05-21] MEDS: Budesonide Respules 0.5 MG/2 ML AMPUL.NEB. INHALATION (19:02)
[2017-05-21] MEDS: Atorvastatin Calcium 40 MG Tablet PO (21:51)
[2017-05-21 22:01] LABS: Bedside Glucose 166 mg/dL (70-110)
[2017-05-22 02:16] VITALS: RESP 20
[2017-05-22 03:21] LABS: Bedside Glucose 155 mg/dL (70-110)
[2017-05-22 03:30] VITALS: BP 111/63; PULSE 98; RESP 20; TEMP 36.9; O2SAT 95
[2017-05-22 05:28] LABS: Absolute Lymphocyte Count 1.02 X10^3/ul (0.83-4.51); Absolute Neutrophil Count 5.8 X10^3/uL (2.0-7.7); Basophil# 0.02 X10^3/uL; Basophil% 0.3 % (0-1); Eosinophil# 0.55 X10^3/uL; Eosinophils% 6.9 % (0-5); Hematocrit 36.8 % (40-54); Hemoglobin 12.4 g/dl (13.0-16.5); Lymphocyte # 1.02 X10^3/ul (4.0); Lymphocyte % 12.9 % (19-41); Mean Corp Hgb Conc 33.7 g/gl (32-36); Mean Corpuscular Hgb 33.9 pg (27.0-32.0); Mean Corpuscular Volume 100.5 fL (80-94); Mean Platelet Vol. 10.7 fl (6.2-12.0); Monocyte# 0.55 X10^3/uL; Monocyte% 6.9 % (0-10); Neutrophil # 5.76 X10^3/uL (2.7-7.7); Neutrophil % 72.7 % (47-70); Platelet Count 155 K/mm3 (150-450); RBC Distribution Width CV 13.9 % (11.6-14.6); RBC Distribution Width SD 49.5 fl (35.1-43.9); Red Blood Count 3.66 M/mm3 (4.6-6.2); White Blood Count 7.9 K/mm3 (4.4-11.0)
[2017-05-22 05:30] LABS: POSITIVE COUNT NO; POSITIVE DIFFERENTIAL NO; POSITIVE MORPHOLOGY NO
[2017-05-22] MEDS: levoFLOXacin 250 MG Tablet PO (05:44)
[2017-05-22] MEDS: Menthol/Lanolin/Calamine/Znox 113 GM Tube 1 APPLIC TOPICAL (05:44)
[2017-05-22 06:46] LABS: Bedside Glucose 115 mg/dL (70-110)
[2017-05-22 06:57] LABS: Anion Gap 7 (5-15); BUN 27 mg/dL (7-18); BUN/Creat Ratio 22.3 RATIO (10-20); Calcium,Total 8.1 mg/dL (8.5-10.1); Chloride 106 mmol/L (98-107); Creatinine, Serum 1.21 mg/dL (0.70-1.30); EST Glomerular Filtration Rate 65 mL/min (>60); Est Glom Filt Rate - Afr Amer 78 mL/min (>60); Estimated Creatinine Clearance 76.62 ml/min; Glucose 123 mg/dL (74-106); Potassium 4.7 mmol/L (3.5-5.1); Sodium Level 138 mmol/L (136-145)
[2017-05-22 07:21] VITALS: PULSE 99; RESP 20; O2SAT 98
[2017-05-22] MEDS: Ipratropium 0.5 MG/2.5 ML SOLUTION INHALATION (07:21)
[2017-05-22] MEDS: Budesonide Respules 0.5 MG/2 ML AMPUL.NEB. INHALATION (07:21)
--- NOTE | 2017-05-22 07:25 | PN_ITS ---
Subjective: Patient transferred out of the intensive care unit yesterday. Patient is still reporting some discomfort in the perineal area, but this is improved with topical treatments. Patient still having a minorly productive cough, but overall feels significantly improved compared to previous. Saturating well on room air, but slept in the chair overnight. General: Alert, Oriented x3, Cooperative, No apparent distress, - - Speaking in full sentences. Morbidly obese. HEENT: Atraumatic, PERRLA, EOMI, Normocephalic, - - No scleral icterus or injection noted. Oral: Moist Mucosa, No Gingival or Mucosal Lesions/ Ulcerations Neck: Supple, No JVD, No Nodes, Trachea Midline, - - ED difficult to assess secondary to body habitus Lungs: No rhonchi, No wheeze, No rales, Diminished, - - Symmetric expansion. No dullness to percussion. Cardiovascular: Regular rate, Regular Rhythm, Normal S1, Normal S2, No murmurs, No rub noted, No Gallop Abdomen: Bowel Sounds Present, Soft, Non Tender, Non-Distended, Obese Extremities: No clubbing, No cyanosis, Edema, - - Chronic venous changes noted of lower extremities Skin: - - Perineal breakdown was not personally inspected Musculoskeletal: No Tenderness to Palpation of Joints or Extremities, No Muscle Wasting Lymphatic: No Cervical, Supraclavicular, or Inguinal Adenopathy Neurological: Cranial nerves II-XII grossly intact, Neuro grossly intact Psych/Mental Status: Alert and oriented to time, place, person, mood and affect Vital Signs Temp Pulse Resp BP Pulse Ox 36.9 C 98 20 H 111/63 95 05/22/17 03:30 05/22/17 03:30 05/22/17 03:30 05/22/17 03:30 05/22/17 03:30 Oxygen Delivery Method Room Air Weight: 169.7 kg Body Mass Index (BMI) 46.7 Intake and Output for Last 24 Hours 05/20/17 05/21/17 05/22/17 23:59 23:59 23:59 Intake Total 4005 / 4005 813 / 813 Output Total 3075 / 3075 975 / 975 Balance 930 / 930 -162 / -162 Labs (Last 48 Hours) 05/21/17 05/21/17 05/21/17 02:30 04:05 04:05 WBC 11.3 H RBC 3.73 L Hgb 12.3 L Hct 37.1 L MCV 99.5 H MCH 33.0 H MCHC 33.2 RDW 14.2 RDW Differential 51.1 H Plt Count 137 L MPV 10.6 Immature Gran % (Auto) Neut % (Auto) Lymph % (Auto) Sully % (Auto) Eos % (Auto) Baso % (Auto) Absolute Neuts (auto) Absolute Lymphs (auto) Total Counted PT INR APTT Sodium 132 L Potassium 4.1 Chloride 103 Carbon Dioxide 25.0 Anion Gap 4 L BUN 50 H Creatinine 2.89 H Estim Creat Clear Calc 32.08 Est GFR (MDRD) Af Amer 29 L Est GFR (MDRD) Non-Af 24 L BUN/Creatinine Ratio 17.3 Glucose 179 H Hemoglobin A1c Lactic Acid Calcium 7.4 L Phosphorus Magnesium Ur Random Sodium Urine Creatinine MRSA (PCR) POSITIVE H POC Glucose 05/21/17 05/21/17 05/21/17 04:05 06:00 06:00 WBC RBC Hgb Hct MCV MCH MCHC RDW RDW Differential Plt Count MPV Immature Gran % (Auto) Neut % (Auto) Lymph % (Auto) Sully % (Auto) Eos % (Auto) Baso % (Auto) Absolute Neuts (auto) Absolute Lymphs (auto) Total Counted PT INR APTT Sodium Potassium Chloride Carbon Dioxide Anion Gap BUN Creatinine Estim Creat Clear Calc Est GFR (MDRD) Af Amer Est GFR (MDRD) Non-Af BUN/Creatinine Ratio Glucose Hemoglobin A1c 6.2 Lactic Acid 1.2 Calcium Phosphorus 2.5 Magnesium 1.5 L Ur Random Sodium Urine Creatinine MRSA (PCR) POC Glucose 05/21/17 05/21/17 05/21/17 06:50 07:54 12:22 WBC RBC Hgb Hct MCV MCH MCHC RDW RDW Differential Plt Count MPV Immature Gran % (Auto) Neut % (Auto) Lymph % (Auto) Sully % (Auto) Eos % (Auto) Baso % (Auto) Absolute Neuts (auto) Absolute Lymphs (auto) Total Counted PT 15.2 H INR 1.2 APTT 32.4 Sodium Potassium Chloride Carbon Dioxide Anion Gap BUN Creatinine Estim Creat Clear Calc Est GFR (MDRD) Af Amer Est GFR (MDRD) Non-Af BUN/Creatinine Ratio Glucose Hemoglobin A1c Lactic Acid Calcium Phosphorus Magnesium Ur Random Sodium Urine Creatinine MRSA (PCR) POC Glucose 138 H 194 H 05/21/17 05/21/17 05/21/17 12:30 12:30 17:09 WBC RBC Hgb Hct MCV MCH MCHC RDW RDW Differential Plt Count MPV Immature Gran % (Auto) Neut % (Auto) Lymph % (Auto) Sully % (Auto) Eos % (Auto) Baso % (Auto) Absolute Neuts (auto) Absolute Lymphs (auto) Total Counted PT INR APTT Sodium Potassium Chloride Carbon Dioxide Anion Gap BUN Creatinine Estim Creat Clear Calc Est GFR (MDRD) Af Amer Est GFR (MDRD) Non-Af BUN/Creatinine Ratio Glucose Hemoglobin A1c Lactic Acid Calcium Phosphorus Magnesium Ur Random Sodium 47 Urine Creatinine 147.00 MRSA (PCR) POC Glucose 155 H 05/21/17 05/22/17 05/22/17 21:45 05:08 05:08 WBC 7.9 RBC 3.66 L Hgb 12.4 L Hct 36.8 L MCV 100.5 H MCH 33.9 H MCHC 33.7 RDW 13.9 RDW Differential 49.5 H Plt Count 155 MPV 10.7 Immature Gran % (Auto) 0.300 Neut % (Auto) 72.7 H Lymph % (Auto) 12.9 L Sully % (Auto) 6.9 Eos % (Auto) 6.9 H Baso % (Auto) 0.3 Absolute Neuts (auto) 5.8 Absolute Lymphs (auto) 1.02 Total Counted Not Reportable PT INR APTT Sodium 138 Potassium 4.7 Chloride 106 Carbon Dioxide 25.0 Anion Gap 7 BUN 27 H Creatinine 1.21 Estim Creat Clear Calc 76.62 Est GFR (MDRD) Af Amer 78 Est GFR (MDRD) Non-Af 65 BUN/Creatinine Ratio 22.3 H Glucose 123 H Hemoglobin A1c Lactic Acid Calcium 8.1 L Phosphorus Magnesium Ur Random Sodium Urine Creatinine MRSA (PCR) POC Glucose 166 H 05/22/17 06:39 WBC RBC Hgb Hct MCV MCH MCHC RDW RDW Differential Plt Count MPV Immature Gran % (Auto) Neut % (Auto) Lymph % (Auto) Sully % (Auto) Eos % (Auto) Baso % (Auto) Absolute Neuts (auto) Absolute Lymphs (auto) Total Counted PT INR APTT Sodium Potassium Chloride Carbon Dioxide Anion Gap BUN Creatinine Estim Creat Clear Calc Est GFR (MDRD) Af Amer Est GFR (MDRD) Non-Af BUN/Creatinine Ratio Glucose Hemoglobin A1c Lactic Acid Calcium Phosphorus Magnesium Ur Random Sodium Urine Creatinine MRSA (PCR) POC Glucose 115 H Microbiology 05/21/17 09:51 Mucosa - Nasopharyngeal Respiratory Panel (PCR) - Final Assessment/Plan Active and Suspected Problems DMII (diabetes mellitus, type 2) (Acute) Severe sepsis (Acute) Cellulitis (Acute) RECOMMENDATIONS: 1. Consider changing antibiotics per renal function 2. Weekly okay to discontinue supplemental IV fluid hydration 3. Continue aerosol treatments 4. Recommend empiric BiPAP utilization with naps and nightly 5. Subcutaneous heparin for DVT prophylaxis 6. Hemodynamically stable on room air. Will sign off from a critical care perspective IMPRESSIONS: 1. Severe sepsis secondary to scrotal cellulitis Patient has responded to IV resuscitation and antibiotics. Patient likely okay to be transitioned to a more appropriate cellulitis associated antibiotic with increased dose given body habitus and recovery of renal function. Defer to primary service. Patient currently hemodynamically stable on room air. Will sign off from a critical care perspective. Please call with any further issues. 2. Acute kidney injury secondary to prerenal etiology/severe sepsis Patient's renal function is almost normalized at this time with aggressive fluid resuscitation. No indication for renal replacement therapy. Like to light repletion is indicated at this time. Patient's calcium does normalize with correction on albumin. 3. Probable COPD and LILY Patient is noncompliant with therapy at this time. Stressed to the patient the importance of using BiPAP overnight, but patient is refusing. Patient should likely follow up with us as an outpatient for complete pulmonary function test and titration polysomnogram. Would defer to patient if willing to do this on discharge. 4. Morbid obesity/hypertension/hyperlipidemia/diabetes Complicates care, management, recovery and prognosis. Clear okay to reinitiate home antihypertensives in a stepwise fashion. Recommend physical therapy evaluation. This note was generated with [employer] software. It may contain incorrect words, spelling, and punctuation that were not noted in checking the note before signing. Code Visit Inpatient E&M: 23210 [facility] Hosp L3
[2017-05-22 07:34] VITALS: BP 103/59; PULSE 95; RESP 20; TEMP 36.6; O2SAT 98
[2017-05-22] MEDS: Gabapentin 600 MG Tablet PO ×2 (07:38→11:30)
[2017-05-22] MEDS: Nortriptyline 10 MG Capsule 20 MG PO (07:38)
[2017-05-22] MEDS: Aspirin 81 MG TAB.CHEW PO (07:38)
[2017-05-22] MEDS: Folic Acid 1 MG Tablet 0.5 MG PO (07:38)
[2017-05-22] MEDS: Fluconazole 100 MG Tablet PO (07:38)
[2017-05-22] MEDS: 0.9% Normal Saline 1,000 ML 125 ML IV (08:21)
[2017-05-22 11:41] LABS: Bedside Glucose 176 mg/dL (70-110)
--- NOTE | 2017-05-22 11:50 | PCM.DC ---
- Discharge Diagnoses Current Active Problems: Current Active and Chronic Problems DMII (diabetes mellitus, type 2) (Acute) Severe sepsis (Acute) Cellulitis (Acute) HTN (hypertension) (Chronic) You will use the following diet at home:: Calorie/Carbohydrate Controlled (specify 1200, 1400, etc) Discharge Activity: Return to Normal Activity Allergies/Adverse Reactions: Allergies Penicillins [PCN] Allergy (Verified 05/20/17 22:47) Anaphylaxis shellfish derived Allergy (Verified 11/09/15 17:13) Rash Medications to take at Discharge Aspirin 81 mg PO DAILY 05/20/17 Atorvastatin Calcium 40 mg PO QHS 05/20/17 Cholecalciferol (Vitamin D3) [Vitamin D3] 5,000 unit PO DAILY 05/20/17 Folic Acid 0.4 mg PO DAILY 05/20/17 Furosemide [Lasix] 20 mg PO DAILY 05/20/17 Gabapentin [Neurontin] 600 mg PO TID 05/20/17 Glipizide [Glucotrol] 10 mg PO DAILY 05/20/17 Lisinopril [Zestril] 20 mg PO DAILY 05/20/17 Metformin HCl 1,000 mg PO BID 05/20/17 Nortriptyline HCl 20 mg PO BID 05/20/17 Budesonide/Formoterol 160/4.5 2 puff IH BID 05/21/17 Tiotropium [place] [Spiriva Respimat] 2 puff IH DAILY 05/21/17 Clindamycin [Cleocin] 300 mg PO TID #14 cap 05/22/17 Levofloxacin [Levaquin] 500 mg PO DAILY@0600 #7 tab 05/22/17 The following prescriptions were given: Levofloxacin [Levaquin] 500 mg PO DAILY@0600 #7 tab Clindamycin [Cleocin] 300 mg PO TID #14 cap Primary Care Physician: [facility],[place] [Primary Care Provider] - Within 2 Weeks
--- NOTE | 2017-05-22 11:52 | PCM.DC.SUM ---
Discharge Date and Diagnosis Date of Admission: 05/21/17 Date of Discharge: 05/22/17 - Primary Discharge Diagnosis Active and Suspected Problems DMII (diabetes mellitus, type 2) (Acute) Severe sepsis (Acute) Cellulitis (Acute) - Secondary Discharge Diagnosis Chronic Problems HTN (hypertension) (Chronic) Hospital Course and Treatment Summary of Care Provided: This is a 62 year old male w/ h/o DMII, HTN, COPD, and cellulits who presented with severe sepsis secondary to cellulitis. He wa treated by his PCP for scrotal cellulitis was later presented to the emergency room. He was found to be septic, he was placed on intravenous broad-spectrum antibiotics and admitted to the hospital, and had clinical improvement and was then transitioned to oral Levaquin and clindamycin and discharged home. He was discharged home in a stable condition and recommended to follow-up with her primary care doctor in 1-2 weeks. Exam at the time of discharge; vital signs were stable. He was alert and oriented to time place and person. He did not appear to be any form of distress. S1 and S2 heard no murmur or gallop Lung exam was clear to auscultation with no adventitious sounds. Abdomen was soft nontender with normal bowel sounds. extremity exam did not reveal any edema, palpable pulses bilaterally. Neurologic exam was grossly intact. Skin; resolving erythema. Discharge Diet: No Restrictions Discharge Activity: Return to Normal Activity Home Medications: Medications to take at Discharge Aspirin 81 mg PO DAILY 05/20/17 Atorvastatin Calcium 40 mg PO QHS 05/20/17 Cholecalciferol (Vitamin D3) [Vitamin D3] 5,000 unit PO DAILY 05/20/17 Folic Acid 0.4 mg PO DAILY 05/20/17 Furosemide [Lasix] 20 mg PO DAILY 05/20/17 Gabapentin [Neurontin] 600 mg PO TID 05/20/17 Glipizide [Glucotrol] 10 mg PO DAILY 05/20/17 Lisinopril [Zestril] 20 mg PO DAILY 05/20/17 Metformin HCl 1,000 mg PO BID 05/20/17 Nortriptyline HCl 20 mg PO BID 05/20/17 Budesonide/Formoterol 160/4.5 2 puff IH BID 05/21/17 Tiotropium [place] [Spiriva Respimat] 2 puff IH DAILY 03/04/18 Clindamycin [Cleocin] 300 mg PO TID #14 cap 05/22/17 Levofloxacin [Levaquin] 500 mg PO DAILY@0600 #7 tab 05/22/17 Following Prescrptions Were Given to Patient: Levofloxacin [Levaquin] 500 mg PO DAILY@0600 #7 tab Clindamycin [Cleocin] 300 mg PO TID #14 cap [facility] [[facility]] - Within 2 Weeks Disposition: Home Patient Condition:: Good Meaningful Use Info Meaningful Use Diagnoses (Choose all that apply): None applicable Code Visit Inpatient E&M: 37837 Dis[facility] Hosp
--- NOTE | 2017-05-22 12:13 | CASEMGMT ---
Addendum entered by Parag Skaggs 05/22/17 12:31: Call to [facility] in [place] [phone]. Message left with nurse Blank to contact pt for follow up appointment. Original Note: JAYCOB BRIGHT [facility]. Call back information included. Physician plans on discharge today. No dc needs identified @ this time. Pt states he wishes to go home, plans to fill po prescriptions @ [facility] in [place]. Drew WORRELLN RN ACM
[2017-05-22 12:25] VITALS: BP 136/73; PULSE 94; RESP 16; TEMP 36.7; O2SAT 96
== END 2017-05-22 13:26 | disposition home or self-care (01) | DRG 871 ==
LOC: ED 05-21 01:29 → ICU 05-21 01:38 → MS2 05-21 12:37
PROVIDERS: Internal Medicine; Admitting Provider Internal Medicine; Emergency Provider Emergency Medicine; Visit Provider Internal Medicine
DX: A41.9 Sepsis, unspecified organism (principal); R65.21 Severe sepsis with septic shock; N17.9 Acute kidney failure, unspecified; E87.2 Acidosis; E87.1 Hypo-osmolality and hyponatremia; Z68.42 Body mass index [BMI] 45.0-49.9, adult; N49.2 Inflammatory disorders of scrotum; E86.0 Dehydration; G62.9 Polyneuropathy, unspecified; J44.9 Chronic obstructive pulmonary disease, unspecified; E11.9 Type 2 diabetes mellitus without complications; I10 Essential (primary) hypertension; E78.5 Hyperlipidemia, unspecified; G47.33 Obstructive sleep apnea (adult) (pediatric); E66.01 Morbid (severe) obesity due to excess calories; F17.200 Nicotine dependence, unspecified, uncomplicated; Z91.19 Patient's noncompliance with other medical treatment and regimen; Z99.81 Dependence on supplemental oxygen; Z79.82 Long term (current) use of aspirin; Z79.84 Long term (current) use of oral hypoglycemic drugs; Z79.899 Other long term (current) drug therapy
CPT/HCPCS: 51702; 71045; 72192; 74176; 80048; 80053; 81001; 82570; 82803; 82962; 83036; 83605; 83690; 83735; 84100; 84300; 84484; 85025; 85027; 85610; 85730; 87040; 87086; 87633; 87641; 93005; 94640; 94762; 97162; 97166; 97802; 99285; J7030; J7040; J7050; A4216; J2405

== ENCOUNTER → 2018-10-24 07:59 | Outpatient (CLI) | payer OTHER, SELFPAY ==
--- NOTE | 2018-10-24 08:08 | US_ITS ---
STUDY: ABDOMINAL ULTRASOUND - RIGHT UPPER QUADRANT REASON FOR VISIT: Male, 63 years old. Abnormal labs. TECHNIQUE: Ultrasound evaluation of the right upper quadrant was performed with real-time and static mario-scale imaging. TECHNICAL QUALITY: Adequate. COMPARISON: None. FINDINGS: Liver: The liver measures 23.2 cm. There is increased echogenicity consistent with fatty infiltration. The bile ducts are within normal limits. There is hepatic color flow. The direction of portal flow is hepatopetal. There is no demonstrated mass lesion. Gallbladder: Normal distended gallbladder. The gallbladder wall measures 3 mm. There is a negative sonographic Galloway's sign. There is no pericholecystic fluid. There are no gallstones. There is layering sludge in the gallbladder. Common Bile Duct (C.B.D.): The common bile duct measures 4 mm. Pancreas: Normal size of the head, body and tail of the pancreas. There is normal echogenicity of the pancreas. There is no demonstrated pancreatic mass or cyst. Right Kidney: Normal size of the right kidney. The right kidney measures 11.9 cm. Normal renal cortex. The right cortex measures 1.6 cm. There is no demonstrated renal mass or cyst. There is no right hydronephrosis. US/Liver IMPRESSION: Liver is enlarged with diffuse fatty infiltration. No shadowing gallstones. There is sludge in the gallbladder. No biliary dilatation. Electronically Signed: Ben Weiss MD at 16:52 EDT , Service support ,
== END ==
DX: R94.5 Abnormal results of liver function studies (principal)
CPT/HCPCS: 76705

== ENCOUNTER 2020-03-10 11:31 | Emergency (ER) | payer OTHER, SELFPAY ==
[2020-03-10 11:32] VITALS: BP 160/119; PULSE 112; RESP 18; TEMP 35.9; O2SAT 99; BMI 44.9
[2020-03-10 11:34] VITALS: BP 160/119; PULSE 112; RESP 18; TEMP 35.9; O2SAT 99
[2020-03-10 12:41] VITALS: BP 134/69; PULSE 74; RESP 16; TEMP 36.4; O2SAT 97
[2020-03-10 12:57] LABS: Absolute Lymphocyte Count 1.17 X10^3/uL (0.83-4.51); Absolute Neutrophil Count 5.9 X10^3/uL (2.0-7.7); Basophil# 0.04 X10^3/uL; Basophil% 0.5 % (0-1); Eosinophil# 0.31 X10^3/uL; Eosinophils% 3.7 % (0-5); Hematocrit 42.7 % (40-54); Hemoglobin 13.7 g/dL (13.0-16.5); Lymphocyte # 1.17 X10^3/ul (4.0); Lymphocyte % 13.8 % (19-41); Mean Corp Hgb Conc 32.1 g/dL (32-36); Mean Corpuscular Hgb 32.2 pg (27.0-32.0); Mean Corpuscular Volume 100.2 fL (80-94); Mean Platelet Vol. 10.2 fl (6.2-12.0); Monocyte# 0.95 X10^3/uL; Monocyte% 11.2 % (0-10); NRBC Flagged by Analyzer 0 % (0-5); Neutrophil # 5.94 X10^3/uL (2.7-7.7); Neutrophil % 70.3 % (47-70); Platelet Count 208 K/mm3 (150-450); RBC Distribution Width CV 13.6 % (11.6-14.6); RBC Distribution Width SD 50.3 fl (35.1-43.9); Red Blood Count 4.26 M/mm3 (4.6-6.2); White Blood Count 8.5 K/mm3 (4.4-11.0)
[2020-03-10 13:10] LABS: Anion Gap 2 (5-15); BUN 22 mg/dL (7-18); BUN/Creat Ratio 18.8 RATIO (10-20); Calcium,Total 9.3 mg/dL (8.5-10.1); Chloride 105 mmol/L (98-107); Creatinine, Serum 1.17 mg/dL (0.70-1.30); EST Glomerular Filtration Rate 67 mL/min (>60); Est Glom Filt Rate - Afr Amer 81 mL/min (>60); Estimated Creatinine Clearance 75.14 ml/min; Glucose 163 mg/dL (74-106); Potassium 4.6 mmol/L (3.5-5.1); Sodium Level 137 mmol/L (136-145)
[2020-03-10] MEDS: Lidocaine 1% (20 ml mdv) 20 ML Vial 4 ML INFILT (13:18)
[2020-03-10 13:35] LABS: Lactic Acid 2.2 mmol/L (0.4-1.9)
--- NOTE | 2020-03-10 13:41 | ED.DCSUM_ITS ---
- ER Visit Summary Date of Service: 03/10/20 Chief Complaint: [Right sided scrotal swelling] History of Present Illness: The patient is a 64 M [presents to the emergency department with complaint of scrotal swelling to the right side that started about 8 days ago. Patient states that initially it was minor but continue to enlarge and progressed. Patient states this is the third time that this is happened and in the past these boils would rupture and drain for a day or 2 and would resolve. [facility] and was started on clindamycin p.o. Patient comes in today because of continued swelling and pain to the area. Patient denies any fever, chills, or sweats. He denies any trauma to the area. Patient does have history of diabetes and hypertension. Patient has history of COPD.] Physical Examination: [HEENT-PERRLA, EOMI. Cranial nerves II through XII grossly intact. TMs clear. Mucous membranes moist. No adenopathy. Cardiovascular-regular rate and rhythm without murmur or ectopy Lungs-clear to auscultation, chest wall stable without crepitus or subcu emphysema Abdomen-normoactive bowel sounds, soft, nontender, no rebound or rigidity, no peritoneal signs. exam-patient does have swelling of the right side of the scrotum with fluct uance and suspected abscess. There is no evidence of gangrene. No significant cellulitic changes noted. Extremities-intact ?4, normal range of motion, normal pulses, atraumatic] Test Results: [CBC with differential obtained showed a white count of 8.5, hemoglobin 13.7, hematocrit 43, platelets 208. Chemistries were unremarkable. Glucose was 163. Lactate was 2.0.] Emergency Department Course and Treatment: [IV line established on arrival. Patient was medicated with clindamycin 900 mg IV. Patient was offered incision and drainage to which she agreed. Area of the scrotum was cleansed with Shur- Clens and anesthetized locally with 1% lidocaine total of 4 cc used. Using an 11 blade a 2 cm incision was made into the most fluctuant portion of suspected abscess and immediately returned foul-smelling free-flowing purulent debris. A voluminous amount of purulent debris was expressed. The area was milked until no more purulent debris could be expressed. I did pack the wound with half-inch iodoform gauze and clean dressing was applied.] I discussed with patient possible admission for IV antibiotics given that he is diabetic versus outpatient therapy. Patient does not want to be admitted and would prefer to follow-up as an outpatient. At this point I do not see any evidence of Michael's gangrene. I think it would be reasonable to attempt outpatient therapy and follow-up with urology. I will refer him to urology for follow-up and advised that he should return if increased pain, redness, swelling, fever, or condition should worsen anyway. Patient is advised to remove the packing in 2 days. Continue with the clindamycin antibiotic until it is gone. Treatment Plan: [Patient will be referred to urology for follow-up] Disposition: [Discharged home in stable condition] Impression: [Right scrotal abscess with incision and drainage] This note was generated with [employer] dictation software. It may contain incorrect words, spelling, and punctuation that were not noted in review of the chart prior to signing ED Disposition - Plan for ED Patient: [facility] [[facility] Provider] -
--- NOTE | 2020-03-10 13:46 | DCINST.ED_ITS ---
ED Disposition - Plan for ED Patient: Instructions: ED Abscess Incision And Drainage Referrals: [facility],[place] [Primary Care Provider] - Taj Caruso MD [STAFF PHYSICIAN] - 3-5 Days
--- NOTE | 2020-03-10 13:46 | ED.DEP ---
ED Disposition - Plan for ED Patient: Instructions: ED Abscess Incision And Drainage Referrals: [facility],[place] [Primary Care Provider] - Taj Caruso MD [STAFF PHYSICIAN] - 3-5 Days
[2020-03-10 17:04] LABS: Reflex Lactate? Y
== END 2020-03-10 14:08 | disposition home or self-care (01) ==
PROVIDERS: Emergency Provider Emergency Medicine
DX: N49.2 Inflammatory disorders of scrotum (principal); J44.9 Chronic obstructive pulmonary disease, unspecified; E11.9 Type 2 diabetes mellitus without complications; I10 Essential (primary) hypertension; Z72.0 Tobacco use; Z79.84 Long term (current) use of oral hypoglycemic drugs; Z79.82 Long term (current) use of aspirin; Z79.899 Other long term (current) drug therapy
CPT/HCPCS: 55100; 80048; 83605; 85025; 96365; 99283; J7050; A4216

== ENCOUNTER 2022-02-18 09:31 | Outpatient (CLI) | payer OTHER, SELFPAY ==
--- NOTE | 2022-02-18 09:35 | US_ITS ---
STUDY: ABDOMINAL ULTRASOUND - ELASTOGRAPHY REASON FOR VISIT: Male, 66 years old. Hepatomegaly and fatty infiltration of the liver. Hepatitis C. TECHNIQUE: Liver stiffness measurements were obtained on a [employer] RS 85 ultrasound machine using a CA 1-7 probe following the SRU guidelines. 3 measurements were obtained using a 2-D-SWE method. The IQR/M was 20% suggesting a quality data set. TECHNICAL QUALITY: Adequate. COMPARISON: Comparison is made with prior study done earlier in the day. FINDINGS: Liver: There is evidence of hepatomegaly and fatty infiltration of the liver. Median liver stiffness measured 16.5 kPa. US/Elastography Parenchyma/Organ IMPRESSION: Liver stiffness measures 16.5 kPa compatible with F3-F4 (Moderate to severe liver fibrosis) Metavir score. Electronically Signed: Dick Romero MD at 8:16 EST ,
--- NOTE | 2022-02-18 09:36 | US_ITS ---
STUDY: ABDOMINAL ULTRASOUND - RIGHT UPPER QUADRANT REASON FOR VISIT: Male, 66 years old HX OF UNTREATED HEP C TECHNIQUE: Ultrasound evaluation of the right upper quadrant was performed with real-time and static mario-scale imaging. TECHNICAL QUALITY: Adequate. COMPARISON: Comparison is made with prior study 10/24/2018. FINDINGS: Liver: The liver is enlarged and measures 22.1 cm. There is increased echogenicity consistent with fatty infiltration. The bile ducts are within normal limits. There is hepatic color flow. The direction of portal flow is hepatopetal. There is no demonstrated mass lesion. Gallbladder: Normal distended gallbladder. The gallbladder wall measures 2.8 mm. There is a negative sonographic Galloway''s sign. There is no pericholecystic fluid. There are no gallstones. Sludge is seen in the gallbladder lumen. Common Bile Duct (C.B.D.): The common bile duct measures 4.5 mm. Pancreas: Normal size of the head, body and tail of the pancreas. There is normal echogenicity of the pancreas. There is no demonstrated pancreatic mass or cyst. Right Kidney: Normal size of the right kidney. The right kidney measures 12.5 cm x 6.5 cm x 6.6 cm. Normal renal cortex. The right cortex measures 1.6 cm. There is a 1.3 cm x 1.3 cm x 1.2 cm renal cysts. There is no right hydronephrosis. US/Abdomen Limited IMPRESSION: Hepatomegaly and diffuse fatty infiltration of the liver. Sludge is seen in the gallbladder lumen. Right renal cyst. Electronically Signed: Dick Romero MD at 8:15 EST ,
== END 2022-02-18 23:59 | disposition home or self-care (01) ==
DX: K76.0 Fatty (change of) liver, not elsewhere classified (principal); B18.2 Chronic viral hepatitis C; N28.1 Cyst of kidney, acquired; R16.0 Hepatomegaly, not elsewhere classified
CPT/HCPCS: 76705; 76981

== ENCOUNTER → 2024-09-23 | Outpatient (CLI) | payer OTHER, SELFPAY | END | disposition home or self-care (01) | LOC: US 11:26 | DX: M25.531 Pain in right wrist (principal) | CPT/HCPCS: 76882 ==

== ENCOUNTER 2025-01-02 12:59 | Inpatient (IN) | payer OTHER, SELFPAY ==
[2025-01-02] VITALS (18 sets, daily range): BP systolic 106–157; BP diastolic 51–81; PULSE 93–116; RESP 12–32; TEMP 36.3–36.8; O2SAT 86–100; BMI 42.3; BMI 40.9
--- NOTE | 2025-01-02 13:37 | EKG12_ITS ---
Test Reason : SOB
[2025-01-02 13:44] LABS: SITE Not entered; VBG BASE EXCESS 5 mmol/L (-1.0-3.5); VBG PO2 33 mmHg (25-40); VBG SO2 68 % (50-70); VBG TCO2 30 mmol/L (23-33)
--- NOTE | 2025-01-02 13:48 | ED.VIS.DYS ---
HPI History of Present Illness Chief Complaint: Shortness of Breath Narrative Narrative: Chief complaint and HPI: 69-year-old male with past medical history of COPD, HTN, DM2 presents for evaluation of pain secondary to sacral ulcer. Patient states that he sleeps in a recliner regularly and since then has developed a sacral ulcer. He states he is unable to get into the tub or shower in which he sponge bathes. His and son told him that he needed his also evaluated today which is why EMS was called. EMS noted that patient developed hypoxia with standing and pivoting onto their cot. States his oxygen dropped into the 70s. Patient does not wear oxygen at home or have any. He states he has been having increasing shortness of breath over the past month with chronic cough. He denies any fever, chills, chest pain, abdominal pain, nausea, vomiting, dysuria. States he takes his inhaler with DuoNebs as needed. Review of systems: See HPI Medications: As listed on the chart Allergies: As listed on the chart PFSH: Per chart Vital signs: As listed on the chart. Reviewed. Physical exam: Gen: A&O x3, NAD Head: Normocephalic, atraumatic Eyes: No sclera icterus, conjunctiva clear ENT: Moist mucous membranes Neck: Trachea midline CV: RRR, no murmurs, +1 pitting peripheral edema of the bilateral lower extremities with chronic skin changes and intermittent clear seepage-legs were wrapped with compression stockings these were removed Resp: Diminished in the bilateral bases, coarse, expiratory wheezing GI: Large body habitus, abd soft, non-distended, non-tender, no r/r/g, large sacral ulcer that extends to the bilateral buttocks and posterior scrotum-stage II without any signs of infection or purulent Musc: Moves all extremity, no deformity Neuro: Alert, oriented, grossly intact, sensation intact Psych: Cooperative, appropriate mood and affect [facility] Medical History (Updated 01/02/25 @ 13:22 by Viri Hitchcock) DMII (diabetes mellitus, type 2) Severe sepsis Cellulitis HTN (hypertension) Knee arthropathy Medical History no medical history Home Medications ?Medication ?Instructions ?Recorded ?Last Taken ?Type aspirin 81 mg chewable tablet 81 mg PO DAILY 05/20/17 Unknown History atorvastatin 40 mg tablet 40 mg PO QHS 05/20/17 Unknown History cholecalciferol (vitamin D3) 125 5,000 unit PO DAILY 05/20/17 Unknown History mcg (5,000 unit) capsule folic acid 400 mcg tablet 0.4 mg PO DAILY 05/20/17 Unknown History gabapentin 300 mg capsule 600 mg PO TID 05/20/17 Unknown History (Neurontin) glipizide 10 mg tablet (Glucotrol) 10 mg PO DAILY 05/20/17 Unknown History lisinopril 20 mg tablet (Zestril) 20 mg PO DAILY 05/20/17 Unknown History metformin 500 mg tablet 1,000 mg PO BID 05/20/17 Unknown History nortriptyline 10 mg capsule 20 mg PO BID 05/20/17 Unknown History Budesonide/Formoterol 160/4.5 2 puff IH BID COPD 05/21/17 Unknown History tiotropium bromide 2.5 2 puff IH DAILY COPD 05/21/17 Unknown History mcg/actuation mist for inhalation (Spiriva Respimat) clindamycin HCl 150 mg capsule 300 mg (2 x 150 mg) PO TID #14 caps 05/22/17 Unknown Rx levofloxacin 250 mg tablet 500 mg (2 x 250 mg) PO DAILY@0600 05/22/17 Unknown Rx #7 tabs Allergy/AdvReac Type Severity Reaction Status Date / Time Penicillins (PCN) Allergy Anaphylaxis Verified 01/02/25 13:00 shellfish derived Allergy Rash Verified 01/02/25 13:00 Family History no significant family his Surgical History (Updated 01/02/25 @ 13:22 by Viri Hitchcock) H/O spinal fusion H/O laminectomy Surgical History no surgical history Social History Smoking Status: Current every day smoker tobacco type: cigarettes EXAM Physical Exam Const Vital Signs: 01/02/25 13:00 01/02/25 13:04 01/02/25 13:23 Temperature 98.1 F 98.1 F Temperature Source Oral Oral Pulse Rate 102 H 102 H Respiratory Rate 20 H 20 H Respiratory Effort Short of Breath Labored Respiratory Depth Shallow Respiratory Pattern Tachypnea Blood Pressure 106/55 L 116/51 L Blood Pressure Mean 72 72 Pulse Ox 98 94 Oxygen Delivery Method Room Air Room Air Room Air Oxygen Flow Rate (L/min) 01/02/25 14:04 01/02/25 14:15 01/02/25 15:00 Temperature 98.2 F Temperature Source Oral Pulse Rate 93 116 H 99 Respiratory Rate 26 H 24 H 12 Respiratory Effort Respiratory Depth Respiratory Pattern Blood Pressure 112/53 L 106/60 Blood Pressure Mean 72 75 Pulse Ox 100 93 Oxygen Delivery Method Simple Mask Room Air Oxygen Flow Rate (L/min) 7 01/02/25 15:00 01/02/25 15:33 Temperature 98 F 98 F Temperature Source Temporal Pulse Rate 98 98 Respiratory Rate 31 H 23 H Respiratory Effort Respiratory Depth Respiratory Pattern Blood Pressure 122/71 H 122/71 H Blood Pressure Mean 88 88 Pulse Ox 90 90 Oxygen Delivery Method Room Air Oxygen Flow Rate (L/min) MDM MDM MDM Narrative Medical decision making narrative: 69-year-old male with past medical history of COPD, HTN, DM2 presents for evaluation of pain secondary to sacral ulcer. Patient states that he sleeps in a recliner regularly and since then has developed a sacral ulcer. He states he is unable to get into the tub or shower in which he sponge bathes. His and son told him that he needed his also evaluated today which is why EMS was called. EMS noted that patient developed hypoxia with standing and pivoting onto their cot. States his oxygen dropped into the 70s. Patient does not wear oxygen at home or have any. He states he has been having increasing shortness of breath over the past month with chronic cough. See physical exam findings. Differential diagnosis includes but is not limited to COPD exacerbation, chronic hypoxia, pneumonia, CHF, failure to thrive. Patient has a stage II sacral ulcer without signs of infection. No imaging of this area is needed at this time. Morphine will be ordered for pain. DuoNeb and Solu-Medrol ordered. Respiratory workup ordered. VBG without hypercapnia or acidosis. I have called and reported that hemoglobin was 4.4. We had this repeated in case this was an error. CBC not in error. Type and screen ordered. Patient will warrant blood transfusion, this was ordered. Rectal exam performed for occult blood testing. Normal external examination except for stage II ulcer. No evidence of hemorrhoids or fissures. Normal tone and sensation. No masses, fluctuance, or tenderness. No pain out of proportion. Brown stool on gloved finger. CBC without leukocytosis. Patient has anemia of 4.4. Platelets unremarkable. BMP with hyperkalemia 5.3 and renal insufficiency with a BUN of 41 and a creatinine of 1.66. Unknown if this is acute or chronic. Patient's previous labs are from 2020. Troponin 45. Patient not endorsing chest pain at this time, will obtain delta. BNP elevated at 1610. Patient does have bilateral peripheral edema. D-dimer elevated at 7.39. Cannot rule out PE. CTA chest ordered. Patient refusing CTA chest and once he is under sedation. I did offer Ativan but he states that he needs to be totally unconscious to receive CT. I did explain to him that there is concern that there could be a blood clot in his lungs. He states he understands but declined CTA chest. Stool occult positive. Patient's anemia is likely secondary to GI bleed. Patient will warrant admission for endoscopy and blood as well as CHF exacerbation. Patient and family updated of all results and confirmed understand the plan. I spoke with hospitalist service who accepted admission. EKG: Interpreted by me/EM physician: EKG shows normal sinus rhythm with nonspecific ST changes. Heart rate 98. Diagnostic: Interpreted by me/EM physician: Chest x-ray with cardiomegaly, pulmonary congestion, effusions. Radiology in agreement. Impression: 1. Severe anemia, acute versus chronic, requiring blood transfusion 2. GI bleed 3. CHF exacerbation 4. Renal insufficiency, acute versus chronic 5. Mild hyperkalemia 6. Elevated D-dimer 7. Elevated troponin 8. Stage II sacral ulcer Lab Data Labs: Laboratory Results - last 24 hr 01/02/25 01/02/25 01/02/25 12:50 12:50 14:00 WBC 6.8 7.1 Corrected WBC Not Reportable RBC 1.89 L 1.93 L Hgb 4.4 L* 4.4 L* Hct 15.8 L 16.4 L MCV 83.6 85.0 MCH 23.3 L 22.8 L MCHC 27.8 L 26.8 L RDW Std Deviation 55.4 H 55.9 H RDW Coeff of Jm 18.4 H 18.4 H Plt Count 215 214 MPV 10.6 10.8 Immature Gran % (Auto) 0.300 0.300 Neut % (Auto) 58.7 55.3 Lymph % (Auto) 22.7 23.1 [place] % (Auto) 14.2 H 17.1 H Eos % (Auto) 3.8 3.5 Baso % (Auto) 0.3 0.7 Absolute Neuts (auto) 4.0 3.9 Absolute Lymphs (auto) 1.55 1.63 Total Counted Not Reportable Neutrophils % (Manual) Not Reportable Band Neutrophils % Not Reportable Lymphocytes % (Manual) Not Reportable Monocytes % (Manual) Not Reportable Eosinophils % (Manual) Not Reportable Basophils % (Manual) Not Reportable Metamyelocytes % Not Reportable Myelocytes % Not Reportable Promyelocytes % Not Reportable Blast Cells % Not Reportable Plasma Cell % (Manual) Not Reportable Other Cells % Not Reportable Nucleated RBC % 0 0 Nucleated RBCs/100 WBC Not Reportable Differential Comment Not Reportable Diff Path Review Not Reportable Hypersegmented Neuts Not Reportable Atypical Lymphocytes Not Reportable Reactive Lymphocytes Not Reportable Smudge Cells Not Reportable Toxic Granulation Not Reportable Toxic Vacuolation Not Reportable Dohle Bodies Not Reportable Raúl Rods Not Reportable Platelet Estimate Not Reportable Plt Morphology Comment Not Reportable RBC Morphology Not Reportable Not Reportable Polychromasia Not Reportable Hypochromasia Not Reportable Basophilic Stippling Not Reportable Anisocytosis Not Reportable Microcytosis Not Reportable Macrocytosis Not Reportable Spherocytes Not Reportable Sickle Cells Not Reportable Target Cells Not Reportable Tear Drop Cells Not Reportable Ovalocytes Not Reportable Stomatocytes Not Reportable [place] Bodies Not Reportable [place] Cells Not Reportable Bite Cells Not Reportable Crenated Cell Not Reportable Acanthocytes (Spur) Not Reportable Rouleaux Not Reportable Schistocytes Not Reportable D-Dimer Quant (PE/DVT) 7.39 H* Cancelled Sodium 137 Cancelled Potassium 5.3 H Cancelled Chloride 102 Cancelled Carbon Dioxide 22.8 Cancelled Anion Gap 13 Cancelled BUN 41 H Cancelled Creatinine 1.66 H Cancelled Estim Creat Clear Calc 65.69 Cancelled Est GFR (MDRD) Non-Af 45 L Cancelled BUN/Creatinine Ratio 24.8 H Cancelled Glucose 149 H Cancelled Calcium 9.1 Cancelled Troponin T High Sens 45 H Cancelled NT pro BNP II 1602 H Cancelled Blood Type Antibody Screen Crossmatch 01/02/25 14:29 WBC Corrected WBC RBC Hgb Hct MCV MCH MCHC RDW Std Deviation RDW Coeff of Jm Plt Count MPV Immature Gran % (Auto) Neut % (Auto) Lymph % (Auto) [place] % (Auto) Eos % (Auto) Baso % (Auto) Absolute Neuts (auto) Absolute Lymphs (auto) Total Counted Neutrophils % (Manual) Band Neutrophils % Lymphocytes % (Manual) Monocytes % (Manual) Eosinophils % (Manual) Basophils % (Manual) Metamyelocytes % Myelocytes % Promyelocytes % Blast Cells % Plasma Cell % (Manual) Other Cells % Nucleated RBC % Nucleated RBCs/100 WBC Differential Comment Diff Path Review Hypersegmented Neuts Atypical Lymphocytes Reactive Lymphocytes Smudge Cells Toxic Granulation Toxic Vacuolation Dohle Bodies Raúl Rods Platelet Estimate Plt Morphology Comment RBC Morphology Polychromasia Hypochromasia Basophilic Stippling Anisocytosis Microcytosis Macrocytosis Spherocytes Sickle Cells Target Cells Tear Drop Cells Ovalocytes Stomatocytes [place] Bodies Ingrid Cells Bite Cells Crenated Cell Acanthocytes (Spur) Rouleaux Schistocytes D-Dimer Quant (PE/DVT) Sodium Potassium Chloride Carbon Dioxide Anion Gap BUN Creatinine Estim Creat Clear Calc Est GFR (MDRD) Non-Af BUN/Creatinine Ratio Glucose Calcium Troponin T High Sens NT pro BNP II Blood Type A POSITIVE Antibody Screen NEGATIVE Crossmatch See Detail ABG Data ABG results: ABG 01/02/25 13:38 Specimen Type [place] Sample Site Not entered VBG pH 7.48 H VBG pO2 33 VBG HCO3 29 H VBG Total CO2 30 VBG O2 Sat (Calc) 68 VBG Base Excess 5 H POC Mix VBG pCO2 Pt Tmp 38.9 L O2 Delivery Device Not entered Radiography Diagnostic Testing: Clinical Impression(s) from Imaging Studies Chest X-Ray 01/02/25 13:50 IMPRESSION: Interstitial edema. Pleural effusion and atelectasis on the right. Reading Location: [id number] Discharge Plan Triage Chief Complaint: Shortness of Breath ED Provider: Maxwell Daniels Dx/Rx/DC Orders Prescriptions: No Action atorvastatin 40 MG tablet 40 mg PO QHS metformin 500 MG tablet 1,000 mg PO BID lisinopril [Zestril] 20 MG tablet 20 mg PO DAILY glipizide [Glucotrol] 10 MG tablet 10 mg PO DAILY folic acid 0.4 MG tablet 0.4 mg PO DAILY nortriptyline 10 MG capsule 20 mg PO BID gabapentin [Neurontin] 300 MG capsule 600 mg PO TID aspirin 81 MG tablet,chewable 81 mg PO DAILY cholecalciferol (vitamin D3) 5,000 UNIT capsule 5,000 unit PO DAILY tiotropium bromide [Spiriva Respimat] 4 GM mist 2 puff IH DAILY Budesonide/Formoterol 160/4.5 2 puff IH BID levofloxacin 250 MG tablet 500 mg PO DAILY@0600 Qty: 7 0RF clindamycin HCl 150 MG capsule 300 mg PO TID Qty: 14 0RF [facility] [Primary Care Provider, None] Print Language: Arabic
--- NOTE | 2025-01-02 13:50 | RAD_ITS ---
PROCEDURE: RAD/Chest PA and Lateral
[2025-01-02 14:11] LABS: Hematocrit 16.4 % (40-54); Hemoglobin 4.4 g/dL (13.0-16.5); Immature Granulocytes Count 0.020 X10^3/uL (0.0-0.0); Mean Corp Hgb Conc 26.8 g/dL (32-36); Mean Corpuscular Volume 85.0 fL (80-94); Mean Platelet Vol. 10.8 fl (6.2-12.0); NRBC Flagged by Analyzer 0 % (0-5); POSITIVE COUNT YES; Platelet Count 214 K/mm3 (150-450); RBC Distribution Width CV 18.4 % (11.6-14.6); RBC Distribution Width SD 55.9 fl (35.1-43.9); Red Blood Count 1.93 M/mm3 (4.6-6.2); White Blood Count 7.1 K/mm3 (4.4-11.0)
[2025-01-02 14:21] LABS: Anion Gap 13 (5-15); BUN 41 mg/dL (4-19); BUN/Creat Ratio 24.8 RATIO (10-20); Calcium,Total 9.1 mg/dL (7.6-11.0); Carbon Dioxide 22.8 mmol/L (21.0-32.0); Chloride 102 mmol/L (98-108); Estimated Creatinine Clearance 65.69 ml/min (50-250); Glucose 149 mg/dL (70-99); Potassium 5.3 mmol/L (3.3-5.1); Pro- Brain NATRIURETIC PEPTIDE 1602 pg/mL (<=900); Troponin T High Sensitivity 45 ng/L (<=22)
[2025-01-02 14:24] LABS: Hematocrit 15.8 % (40-54); Hemoglobin 4.4 g/dL (13.0-16.5); Immature Granulocytes Count 0.020 X10^3/uL (0.0-0.0); Mean Corp Hgb Conc 27.8 g/dL (32-36); Mean Corpuscular Volume 83.6 fL (80-94); Mean Platelet Vol. 10.6 fl (6.2-12.0); NRBC Flagged by Analyzer 0 % (0-5); POSITIVE COUNT YES; Platelet Count 215 K/mm3 (150-450); RBC Distribution Width CV 18.4 % (11.6-14.6); RBC Distribution Width SD 55.4 fl (35.1-43.9); Red Blood Count 1.89 M/mm3 (4.6-6.2); White Blood Count 6.8 K/mm3 (4.4-11.0)
[2025-01-02 14:55] LABS: D-Dimer Quantitative (DVT/PE) 7.39 FEU/ug/m (0.27-0.49)
--- NOTE | 2025-01-02 14:56 | ED.RN ---
Critical D Dimer receied from lab of 7.39. Dr. Vera notified.
[2025-01-02] MEDS: 0.9% Normal Saline (500mL Bag) 500 ML 999 ML IV (15:29)
--- NOTE | 2025-01-02 16:30 | PCM.HP.STD ---
HPI - General General Date of Admission: 01/02/25 Date of Service: 01/02/25 Chief Complaint: Shortness of breath with exertion HPI Narrative NGA LARSON, is a 69 M who presented to [facility] ED on 01/02/2025 with shortness of breath with exertion. Medical history significant for class III obesity, type 2 diabetes mellitus with neuropathy, asthma/COPD, hypertension and chronic low back pain. Patient lives at home with his and son. He reports being very sedentary at baseline, typically does not move much from his recliner. He and family have noticed a possible sacral ulcer developing and his wanted this to be evaluated. He and also noted that he has shortness of breath with minimal exertion including standing up and pivoting out of his chair. Because of the shortness of breath he has not been able to get in and out of the tub and has been using sponge baths in the chair. In the ED he was mildly hypertensive to the 100s over 50s and had sinus tachycardia to the low 100s. He was hypoxic to the high 80s on room air at rest and improved with 2 L nasal cannula. Labs notable for hemoglobin 4.4; recheck was done and hemoglobin was again 4.4. Last noted hemoglobin was 13.7 back in 2019. No known history of anemia. Stool occult positive. Patient denied any dark or bloody bowel movements or changes in bowel movements to the ED physician. Chest x-ray showed interstitial edema with small pleural effusion and atelectasis on the right. BNP 1602. 2 units of blood were ordered for him. Hospitalist was then contacted for admission. I saw the patient at bedside in the ED. Patient was mildly fatigued and pale appearing but was otherwise sitting back comfortably in bed, conversing normally, in no acute distress. Patient states that he has had a few colonoscopies done in the past with the last one being about 8 to 10 years ago he believes. He was told at that time that he had several small polyps and recommendation was for repeat colonoscopy in 5 years. However, he reports having a poor experience during the colonoscopy as he was too awake for it and he preferred not to have another colonoscopy done after that. He denies any GERD or acid reflux symptoms. Denies any epigastric pain. Patient does have a history of chronic low back pain and will take 3-4 ibuprofen at a time and will use ibuprofen 1-2 times several days during the week. He also notes that his knuckles have been more swollen in his hands and his PCP recently put him on a prednisone taper for this. States he has been completing the taper over the past 1.5 to 2 weeks. He again denies any dark or bloody stools or any changes to his bowel movements in the past several weeks to months. He does have issues with constipation at times but attributes this to his sedentary lifestyle and states he still will not typically have pain or discomfort with bowel movements. No other acute concerns currently. Will be admitted for further management. [facility] Medical History DMII (diabetes mellitus, type 2) Severe sepsis Cellulitis HTN (hypertension) Knee arthropathy Medical History no medical history Home Medications ?Medication ?Instructions ?Recorded ?Last Taken ?Type aspirin 81 mg chewable tablet 81 mg PO DAILY 05/20/17 Unknown History atorvastatin 40 mg tablet 40 mg PO QHS 05/20/17 Unknown History cholecalciferol (vitamin D3) 125 5,000 unit PO DAILY 05/20/17 01/02/25 History mcg (5,000 unit) capsule gabapentin 300 mg capsule 600 mg PO TID 05/20/17 01/02/25 History (Neurontin) metformin 500 mg tablet 1,000 mg PO BID 05/20/17 01/02/25 History nortriptyline 10 mg capsule 20 mg PO BID 05/20/17 01/02/25 History albuterol sulfate 2.5 mg/3 mL 2.5 mg inhalation Q6H PRN 01/02/25 01/02/25 History (0.083 %) solution for nebulization shortness of breath or wheezing cetirizine 10 mg tablet 10 mg PO DAILY PRN allergy symptoms 01/02/25 01/02/25 History diclofenac sodium 1 % topical gel 2 g topical BID ARTHRITIS 01/02/25 12/26/24 History furosemide 20 mg tablet 20 mg PO Q12H PRN LEG swelling 01/02/25 01/02/25 History ibuprofen 200 mg tablet (I-Prin) 400 mg PO Q6H PRN pain 01/02/25 01/01/25 History ketoconazole 2 % topical cream 1 applic topical BID SCROTUM AND 01/02/25 01/02/25 History GROIN lanolin alcohols-mineral 1 applic topical DAILY DRY SKIN 01/02/25 01/01/25 History oil-w.petrolatum-ceresin topical cream (Eucerin topical cream) lisinopril 30 mg tablet 30 mg PO DAILY BLOOD PRESSURE 01/02/25 01/02/25 History mometasone 220 mcg/actuation(120 2 inh inhalation BID 01/02/25 01/02/25 History doses)breath activated powder inhaler (Asmanex Twisthaler) ondansetron 4 mg disintegrating 4 mg PO Q12H PRN MODERATE NAUSEA 01/02/25 12/26/24 History tablet zinc oxide-petrolatum 20 %-51 % 1 applic topical BID 01/02/25 01/01/25 History topical paste Allergy/AdvReac Type Severity Reaction Status Date / Time Penicillins (PCN) Allergy Anaphylaxis Verified 01/02/25 13:00 shellfish derived Allergy Rash Verified 01/02/25 13:00 Family History no significant family his Surgical History H/O spinal fusion H/O laminectomy Surgical History no surgical history Social History Smoking Status: Current every day smoker tobacco type: cigarettes ROS Constitutional Constitutional: Reports fatigue; Denies chills, fever(s) or weakness Cardiovascular Cardiovascular: Reports dyspnea on exertion and orthopnea; Denies chest pain, edema, lightheadedness or palpitations Respiratory/Chest Respiratory/Chest: Reports cough, productive cough and shortness of breath with exertion; Denies shortness of breath at rest or wheezing Gastrointestinal Gastrointestinal: Denies abdominal pain, constipation, diarrhea, melena, nausea or vomiting Genitourinary Genitourinary: Denies dysuria Musculoskeletal Musculoskeletal: Reports back pain; Denies arthralgias or myalgias Neurologic Neurologic: Denies dizziness, focal weakness, headache(s), numbness or tingling Vital Signs Vital Signs Vital Signs: 01/02/25 13:00 01/02/25 13:04 01/02/25 13:23 Temperature 98.1 F 98.1 F Temperature Source Oral Oral Pulse Rate 102 H 102 H Respiratory Rate 20 H 20 H Respiratory Effort Short of Breath Labored Respiratory Depth Shallow Respiratory Pattern Tachypnea Blood Pressure 106/55 L 116/51 L Blood Pressure Mean 72 72 Pulse Ox 98 94 Oxygen Delivery Method Room Air Room Air Room Air Oxygen Flow Rate (L/min) 01/02/25 14:04 01/02/25 14:15 01/02/25 15:00 Temperature 98.2 F Temperature Source Oral Pulse Rate 93 116 H 99 Respiratory Rate 26 H 24 H 12 Respiratory Effort Respiratory Depth Respiratory Pattern Blood Pressure 112/53 L 106/60 Blood Pressure Mean 72 75 Pulse Ox 100 93 Oxygen Delivery Method Simple Mask Room Air Oxygen Flow Rate (L/min) 7 01/02/25 15:00 01/02/25 15:33 Temperature 98 F 98 F Temperature Source Temporal Pulse Rate 98 98 Respiratory Rate 31 H 23 H Respiratory Effort Respiratory Depth Respiratory Pattern Blood Pressure 122/71 H 122/71 H Blood Pressure Mean 88 88 Pulse Ox 90 90 Oxygen Delivery Method Room Air Oxygen Flow Rate (L/min) Weight Weight: 149.3 kg Body Mass Index (BMI) 42.3 Physical Exam Const alert, oriented x3 and no apparent distress Constitutional Narrative: Elderly male, class III obesity, mildly fatigued and pale appearing, otherwise sitting back comfortably in bed, conversing normally, in no acute distress. General Appearance: cooperative and comfortable HEENT normocephalic, head/scalp atraumatic, hearing grossly normal bilaterally, nasal mucous membranes and turbinates normal and moist oral mucous membranes Eyes PERRL, EOMs intact bilaterally and conjunctivae normal Neck full ROM Chest inspection of chest normal Resp normal respiratory effort, normal air movement, no use of accessory muscles and clear to auscultation bilaterally Cardio no murmurs and peripheral pulses 2+ throughout Cardio Narrative: Tachycardic, regular rhythm. GI normal to inspection, nondistended, normoactive bowel sounds, soft to palpation, non-tender and non-distended Back/Spine normal ROM Extremity Extremity Narrative: +1-2 nonpitting lower extremity swelling noted bilaterally. Mild chronic venous stasis changes noted bilaterally. Neuro moves all extremities and no focal motor deficits Speech: speech normal Psych mental status grossly normal Results Lab / Micro Data 01/02/25 14:00 01/02/25 12:50 Labs: Laboratory Results - last 24 hr 01/02/25 12:50: WBC 6.8, Corrected WBC Not Reportable, RBC 1.89 L, Hgb 4.4 L*, Hct 15.8 L, MCV 83.6, MCH 23.3 L, MCHC 27.8 L, RDW Std Deviation 55.4 H, RDW Coeff of Jm 18.4 H, Plt Count 215, MPV 10.6, Immature Gran % (Auto) 0.300, Neut % (Auto) 58.7, Lymph % (Auto) 22.7, Tyler % (Auto) 14.2 H, Eos % (Auto) 3.8, Baso % (Auto) 0.3, Absolute Neuts (auto) 4.0, Absolute Lymphs (auto) 1.55, Total Counted Not Reportable, Neutrophils % (Manual) Not Reportable, Band Neutrophils % Not Reportable, Lymphocytes % (Manual) Not Reportable, Monocytes % (Manual) Not Reportable, Eosinophils % (Manual) Not Reportable, Basophils % (Manual) Not Reportable, Metamyelocytes % Not Reportable, Myelocytes % Not Reportable, Promyelocytes % Not Reportable, Blast Cells % Not Reportable, Plasma Cell % (Manual) Not Reportable, Other Cells % Not Reportable, Nucleated RBC % 0, Nucleated RBCs/100 WBC Not Reportable, Differential Comment Not Reportable, Diff Path Review Not Reportable, Hypersegmented Neuts Not Reportable, Atypical Lymphocytes Not Reportable, Reactive Lymphocytes Not Reportable, Smudge Cells Not Reportable, Toxic Granulation Not Reportable, Toxic Vacuolation Not Reportable, Dohle Bodies Not Reportable, Raúl Rods Not Reportable, Platelet Estimate Not Reportable, Plt Morphology Comment Not Reportable, RBC Morphology Not Reportable 01/02/25 12:50: RBC Morphology Not Reportable, Polychromasia Not Reportable, Hypochromasia Not Reportable, Basophilic Stippling Not Reportable, Anisocytosis Not Reportable, Microcytosis Not Reportable, Macrocytosis Not Reportable, Spherocytes Not Reportable, Sickle Cells Not Reportable, Target Cells Not Reportable, Tear Drop Cells Not Reportable, Ovalocytes Not Reportable, Stomatocytes Not Reportable, [place] Bodies Not Reportable, Pandora Cells Not Reportable, Bite Cells Not Reportable, Crenated Cell Not Reportable, Acanthocytes (Spur) Not Reportable, Rouleaux Not Reportable, Schistocytes Not Reportable, D-Dimer Quant (PE/DVT) 7.39 H*, Sodium 137, Potassium 5.3 H, Chloride 102, Carbon Dioxide 22.8, Anion Gap 13, BUN 41 H, Creatinine 1.66 H, Estim Creat Clear Calc 65.69, Est GFR (MDRD) Non-Af 45 L, BUN/Creatinine Ratio 24.8 H, Glucose 149 H, Calcium 9.1, Troponin T High Sens 45 H, NT pro BNP II 1602 H 01/02/25 14:00: WBC 7.1, RBC 1.93 L, Hgb 4.4 L*, Hct 16.4 L, MCV 85.0, MCH 22.8 L, MCHC 26.8 L, RDW Std Deviation 55.9 H, RDW Coeff of Jm 18.4 H, Plt Count 214, MPV 10.8, Immature Gran % (Auto) 0.300, Neut % (Auto) 55.3, Lymph % (Auto) 23.1, Tyler % (Auto) 17.1 H, Eos % (Auto) 3.5, Baso % (Auto) 0.7, Absolute Neuts (auto) 3.9, Absolute Lymphs (auto) 1.63, Nucleated RBC % 0, D-Dimer Quant (PE/DVT) Cancelled, Sodium Cancelled, Potassium Cancelled, Chloride Cancelled, Carbon Dioxide Cancelled, Anion Gap Cancelled, BUN Cancelled, Creatinine Cancelled, Estim Creat Clear Calc Cancelled, Est GFR (MDRD) Non-Af Cancelled, BUN/Creatinine Ratio Cancelled, Glucose Cancelled, Calcium Cancelled, Troponin T High Sens Cancelled, NT pro BNP II Cancelled 01/02/25 14:29: Blood Type A POSITIVE, Antibody Screen NEGATIVE, Crossmatch See Detail Micro: Microbiology 01/02/25 14:32 Stool Stool Occult Blood ([place]) - Final Occult Blood Positive ABG Data ABG results: ABG 01/02/25 13:38 Specimen Type [place] Sample Site Not entered VBG pH 7.48 H VBG pO2 33 VBG HCO3 29 H VBG Total CO2 30 VBG O2 Sat (Calc) 68 VBG Base Excess 5 H POC Mix VBG pCO2 Pt Tmp 38.9 L O2 Delivery Device Not entered Imaging Radiology Impression Chest X-Ray 01/02/25 13:50 IMPRESSION: Interstitial edema. Pleural effusion and atelectasis on the right. Reading Location: [id number] Assessment & Plan Assessment/Plan (1) Anemia: PLAN: Plan Patient is a 69-year-old male who presented to [facility] ED on 01/02/2025 with shortness of breath with exertion. 1. Severe normocytic anemia ? Admit under inpatient status to PCU. GI consulted. Hemoglobin 4.4 on admit, prior baseline around 13. Highest suspicion is for slow upper GI bleed in the setting of frequent NSAID use for chronic low back pain and recent steroid use for possible OA versus rheumatoid arthritis. Notably has had colonoscopies done in the past with last one about 8 to 10 years ago; reportedly has had polyps resected but no other concerning findings. Mild tachycardia on admit but normotensive and otherwise hemodynamically stable. Iron studies with ferritin, B12 and folate ordered. Will give 2 units of blood on admit. IV Protonix twice daily ordered. N.p.o. at midnight with plan for EGD tomorrow. Follow-up a.m. CBC. 2. New onset CHF exacerbation with hypoxia ? Not on home oxygen. Requiring 2 L on admit to maintain appropriate oxygen saturations. Chest x-ray showed interstitial edema with small to moderate right-sided pleural effusion. BNP elevated at 1400. No prior echo results available. D-dimer was elevated but CTA chest was deferred due to GABE as below as well as patient's reported severe claustrophobia with both MRI and CT scans. High suspicion is that volume overload is secondary to severe anemia above but cannot rule out secondary cause. Echo ordered. Bilateral lower extremity duplex ultrasound ordered. Given 1 dose of IV Lasix 20 mg in the ED; will hold on scheduled diuresis at this time. Follow-up testing results. Wean supplemental oxygen as able. 3. GABE with mild hyperkalemia ? Creatinine 1.66, potassium 5.3 on admit. No EKG changes of hyperkalemia noted. Baseline creatinine appears to be around 1.1. Suspect primarily prerenal etiology due to severe anemia as above though may have some degree of cardiorenal syndrome given CHF exacerbation as above. Given 1 dose of IV Lasix in the ED as above, though patient also receiving significant fluids with 2 units of blood as above. Follow-up a.m. BMP and monitor urine output. 4. Acute on chronic debility ? PT/OT/case management consulted. Patient lives at home with his and son. Reports having a very sedentary lifestyle and spends most time in his chair. Activity has been even more limited recently due to shortness of breath with exertion. Appreciate therapy recommendations. 5. Sacral ulcer ? Patient's family reported concern for developing sacral ulcer. Evaluated in the ED and appears to be at worst a stage II sacral ulcer with no open wound noted. No need for wound care consult at this time. Will use frequent turns and pressure offloading while inpatient. Chronic medical conditions: ? Class III obesity: BMI 41 on admit. Complicates hospital course and care. ? Hypertension: Normotensive on admit. Given severe anemia and GABE as above, will hold home lisinopril. ? Asthma/COPD: Mild hypoxia on admit as above suspected due to volume overload. No wheezing on exam, not in COPD/asthma exacerbation. Continue home inhalers. ? Chronic low back pain: Stable. Continue home nortriptyline. ? Type 2 diabetes mellitus with neuropathy: Glucose 149 on admit. A1c 6.7%. Will treat with sliding scale insulin with meals while inpatient, adjust as needed. Hold home metformin. Continue home gabapentin. DVT prophylaxis: SCDs CODE STATUS: Full code, verified Expected disposition: TBD Total clinical time spent by myself addressing the patient's medical issues, reviewing all the data, and collaborating with patient's care team: 83 minutes. Charges/Coding Visit Charges Inpatient E&M: 27496 Init Hosp L3
--- NOTE | 2025-01-02 16:36 | VDLE_ITS ---
Reason For Study VL/Venous Duplex US - Facundo Extrem
--- NOTE | 2025-01-02 16:36 | ECHOD_ITS ---
Reason For Study ECHO/Echo Complete
[2025-01-02 17:11] LABS: Troponin T High Sens 2 HR 44 ng/L (<=22)
--- NOTE | 2025-01-02 18:43 | EX.PCM.CON.G ---
HPI Consult Data Date of Consult: 01/03/25 HPI Narrative Reason for Consultation: Anemia HPI Narrative: NGA LARSON, is a 69-year-old male with a past medical history of chronic obstructive pulmonary disease , hypertension , and diabetes mellitus type 2 presents for evaluation of pain secondary to a sacral ulcer. The patient reports no chest pain at this time. He was informed of the concern for a pulmonary embolism and the recommendation for a chest CTA but stated he understands and declined the CTA. He stated he needs to be totally unconscious for the procedure and refused oral sedation with Ativan. Labs: Anemia: Hemoglobin 4.4. Platelets: Unremarkable. Basic Metabolic Panel (BMP): Hyperkalemia 5.3, Blood Urea Nitrogen (BUN) 41, Creatinine 1.66. The acuteness or chronicity of the renal insufficiency is unknown, as the last labs were from 2019. Troponin: 45. A delta troponin will be obtained. BNP: Elevated at 1610. D-dimer: Elevated at 7.39. Stool occult: Positive. Imaging:?A CTA chest was ordered but refused by the patient. [facility] Medical History DMII (diabetes mellitus, type 2) Severe sepsis Cellulitis HTN (hypertension) Knee arthropathy Medical History no medical history Home Medications ?Medication ?Instructions ?Recorded ?Last Taken ?Type aspirin 81 mg chewable tablet 81 mg PO DAILY 05/20/17 Unknown History atorvastatin 40 mg tablet 40 mg PO QHS 05/20/17 Unknown History cholecalciferol (vitamin D3) 125 5,000 unit PO DAILY 05/20/17 01/02/25 History mcg (5,000 unit) capsule gabapentin 300 mg capsule 600 mg PO TID 05/20/17 01/02/25 History (Neurontin) metformin 500 mg tablet 1,000 mg PO BID 05/20/17 01/02/25 History nortriptyline 10 mg capsule 20 mg PO BID 05/20/17 01/02/25 History albuterol sulfate 2.5 mg/3 mL 2.5 mg inhalation Q6H PRN 01/02/25 01/02/25 History (0.083 %) solution for nebulization shortness of breath or wheezing cetirizine 10 mg tablet 10 mg PO DAILY PRN allergy symptoms 01/02/25 01/02/25 History diclofenac sodium 1 % topical gel 2 g topical BID ARTHRITIS 01/02/25 12/26/24 History furosemide 20 mg tablet 20 mg PO Q12H PRN LEG swelling 01/02/25 01/02/25 History ibuprofen 200 mg tablet (I-Prin) 400 mg PO Q6H PRN pain 01/02/25 01/01/25 History ketoconazole 2 % topical cream 1 applic topical BID SCROTUM AND 01/02/25 01/02/25 History GROIN lanolin alcohols-mineral 1 applic topical DAILY DRY SKIN 01/02/25 01/01/25 History oil-w.petrolatum-ceresin topical cream (Eucerin topical cream) lisinopril 30 mg tablet 30 mg PO DAILY BLOOD PRESSURE 01/02/25 01/02/25 History mometasone 220 mcg/actuation(120 2 inh inhalation BID 01/02/25 01/02/25 History doses)breath activated powder inhaler (Asmanex Twisthaler) ondansetron 4 mg disintegrating 4 mg PO Q12H PRN MODERATE NAUSEA 01/02/25 12/26/24 History tablet zinc oxide-petrolatum 20 %-51 % 1 applic topical BID 01/02/25 01/01/25 History topical paste Allergy/AdvReac Type Severity Reaction Status Date / Time Penicillins (PCN) Allergy Anaphylaxis Verified 01/02/25 13:00 shellfish derived Allergy Rash Verified 01/02/25 13:00 Family History no significant family his Surgical History H/O spinal fusion H/O laminectomy Surgical History no surgical history Social History Smoking Status: Current every day smoker tobacco type: cigarettes ROS Constitutional Constitutional: Denies fatigue, fever(s), poor appetite, weight gain or weight loss Gastrointestinal Gastrointestinal: Denies belching, bloating, change in bowel habits, change in stool character, chewing difficulty, coffee ground emesis, constipation, cramping, diarrhea, dyspepsia, dysphagia, early satiety, excessive flatus, fecal incontinence, heartburn, hematemesis, hematochezia, hemorrhoids, loose stools, melena, nausea, odynophagia, rectal bleeding, tenesmus, vomiting or weight changes Physical Exam Const alert, oriented x3, no apparent distress and healthy appearing General Appearance: cooperative GI normal to inspection, nondistended, normoactive bowel sounds, soft to palpation, non-tender and non-distended Percussion: normal to percussion Rectal Exam: deferred Lab / Micro Data 01/03/25 01:34 01/03/25 01:34 Labs: Laboratory Results - last 24 hr 01/02/25 12:50: WBC 6.8, Corrected WBC Not Reportable, RBC 1.89 L, Hgb 4.4 L*, Hct 15.8 L, MCV 83.6, MCH 23.3 L, MCHC 27.8 L, RDW Std Deviation 55.4 H, RDW Coeff of Jm 18.4 H, Plt Count 215, MPV 10.6, Immature Gran % (Auto) 0.300, Neut % (Auto) 58.7, Lymph % (Auto) 22.7, Irion % (Auto) 14.2 H, Eos % (Auto) 3.8, Baso % (Auto) 0.3, Absolute Neuts (auto) 4.0, Absolute Lymphs (auto) 1.55, Total Counted Not Reportable, Neutrophils % (Manual) Not Reportable, Band Neutrophils % Not Reportable, Lymphocytes % (Manual) Not Reportable, Monocytes % (Manual) Not Reportable, Eosinophils % (Manual) Not Reportable, Basophils % (Manual) Not Reportable, Metamyelocytes % Not Reportable, Myelocytes % Not Reportable, Promyelocytes % Not Reportable, Blast Cells % Not Reportable, Plasma Cell % (Manual) Not Reportable, Other Cells % Not Reportable, Nucleated RBC % 0, Nucleated RBCs/100 WBC Not Reportable, Differential Comment Not Reportable, Diff Path Review Not Reportable, Hypersegmented Neuts Not Reportable, Atypical Lymphocytes Not Reportable, Reactive Lymphocytes Not Reportable, Smudge Cells Not Reportable, Toxic Granulation Not Reportable, Toxic Vacuolation Not Reportable, Dohle Bodies Not Reportable, Raúl Rods Not Reportable, Platelet Estimate Not Reportable, Plt Morphology Comment Not Reportable, RBC Morphology Not Reportable 01/02/25 12:50: RBC Morphology Not Reportable, Polychromasia Not Reportable, Hypochromasia Not Reportable, Basophilic Stippling Not Reportable, Anisocytosis Not Reportable, Microcytosis Not Reportable, Macrocytosis Not Reportable, Spherocytes Not Reportable, Sickle Cells Not Reportable, Target Cells Not Reportable, Tear Drop Cells Not Reportable, Ovalocytes Not Reportable, Stomatocytes Not Reportable, Alexander-[place] Bodies Not Reportable, Norton Cells Not Reportable, Bite Cells Not Reportable, Crenated Cell Not Reportable, Acanthocytes (Spur) Not Reportable, Rouleaux Not Reportable, Schistocytes Not Reportable, D-Dimer Quant (PE/DVT) 7.39 H*, Sodium 137, Potassium 5.3 H, Chloride 102, Carbon Dioxide 22.8, Anion Gap 13, BUN 41 H, Creatinine 1.66 H, Estim Creat Clear Calc 65.69, Est GFR (MDRD) Non-Af 45 L, BUN/Creatinine Ratio 24.8 H, Glucose 149 H, Calcium 9.1, Troponin T High Sens 45 H, NT pro BNP II 1602 H 01/02/25 14:00: WBC 7.1, RBC 1.93 L, Hgb 4.4 L*, Hct 16.4 L, MCV 85.0, MCH 22.8 L, MCHC 26.8 L, RDW Std Deviation 55.9 H, RDW Coeff of Jm 18.4 H, Plt Count 214, MPV 10.8, Immature Gran % (Auto) 0.300, Neut % (Auto) 55.3, Lymph % (Auto) 23.1, Irion % (Auto) 17.1 H, Eos % (Auto) 3.5, Baso % (Auto) 0.7, Absolute Neuts (auto) 3.9, Absolute Lymphs (auto) 1.63, Nucleated RBC % 0, D-Dimer Quant (PE/DVT) Cancelled, Sodium Cancelled, Potassium Cancelled, Chloride Cancelled, Carbon Dioxide Cancelled, Anion Gap Cancelled, BUN Cancelled, Creatinine Cancelled, Estim Creat Clear Calc Cancelled, Est GFR (MDRD) Non-Af Cancelled, BUN/Creatinine Ratio Cancelled, Glucose Cancelled, Calcium Cancelled, Troponin T High Sens Cancelled, NT pro BNP II Cancelled 01/02/25 14:29: Blood Type A POSITIVE, Antibody Screen NEGATIVE, Crossmatch See Detail 01/02/25 16:21: Troponin T Hi Sens 2 Hr 44 H Micro: Microbiology 01/02/25 14:32 Stool Stool Occult Blood ([place]) - Final Occult Blood Positive ABG Data ABG results: ABG 01/02/25 13:38 Specimen Type RYLAND Sample Site Not entered VBG pH 7.48 H VBG pO2 33 VBG HCO3 29 H VBG Total CO2 30 VBG O2 Sat (Calc) 68 VBG Base Excess 5 H POC Mix VBG pCO2 Pt Tmp 38.9 L O2 Delivery Device Not entered Imaging Radiology Impression Chest X-Ray 01/02/25 13:50 IMPRESSION: Interstitial edema. Pleural effusion and atelectasis on the right. Reading Location: [id number] Assessment & Plan Assessment/Plan (1) Anemia: PLAN: Assessment Severe Anemia:?Hemoglobin of 4.4, likely secondary to a gastrointestinal (GI) bleed, given the positive stool occult. Sacral Ulcer:?The primary presenting complaint is pain related to this. Congestive Heart Failure Exacerbation:?Supported by an elevated BNP (1610) and bilateral peripheral edema. Hyperkalemia and Renal Insufficiency:?A new finding, unclear if acute or chronic, requiring further workup. Elevated Troponin:?Troponin of 45, which warrants further evaluation with serial measurements (delta) for possible myocardial injury or stress. Rule Out Pulmonary Embolism :?Elevated D-dimer and a risk profile that includes CHF and immobility from the sacral ulcer. However, PE is unconfirmed due to the patient's refusal of the CTA. GI Bleed:?Most likely source of anemia given the positive stool occult. Patient Refusal of CTA:?Patient is refusing a necessary diagnostic study for a potentially life-threatening condition, which has been acknowledged and documented after a discussion of the risks and benefits. Plan Admit?the patient for: Management of CHF exacerbation. Transfusion of packed red blood cells for severe anemia. GI workup, including an endoscopy, for the likely GI bleed. N.p.o. past midnight Charges/Coding Visit Charges Inpatient E&M: 23792 Init Hosp L3
[2025-01-02] MEDS: Furosemide 20 MG/2 ML VIAL IV (18:46)
[2025-01-02] MEDS: 0.9% Saline Lock 10 ML Syringe IV (18:46)
--- NOTE | 2025-01-02 18:59 | NURSING ---
flushing tubing at 15 per NS 1L bag that arrived with pt from ER
[2025-01-02] MEDS: Pantoprazole Sodium 40 MG in 0.9% Normal Saline (100mL MB+) 100 ML 330 MG IV (19:49)
[2025-01-02] MEDS: Ketoconazole Cream 1 APPLIC TOPICAL (22:06)
[2025-01-02 23:09] LABS: Troponin T High Sensitivity 30 ng/L (<=22)
[2025-01-03] VITALS (21 sets, daily range): BP systolic 94–151; BP diastolic 55–119; PULSE 80–110; RESP 14–27; TEMP 35.9–36.9; O2SAT 92–99; BMI 40.9
[2025-01-03 01:10] LABS: Ferritin 12 ng/mL (37-417); Iron 19 ug/dL (65-175); Iron Binding Capacity,Total 370 ug/dL (250-450); Iron Binding Capacity,Unsat 351 ug/dL (228-428); Vitamin B12 1284 pg/mL (180-914)
[2025-01-03 01:50] LABS: Hematocrit 20.9 % (40-54); Hemoglobin 6.2 g/dL (13.0-16.5); Mean Corp Hgb Conc 29.7 g/dL (32-36); Mean Corpuscular Volume 85.7 fL (80-94); Mean Platelet Vol. 10.1 fl (6.2-12.0); Platelet Count 224 K/mm3 (150-450); RBC Distribution Width CV 17.7 % (11.6-14.6); RBC Distribution Width SD 54.1 fl (35.1-43.9); Red Blood Count 2.44 M/mm3 (4.6-6.2); White Blood Count 7.7 K/mm3 (4.4-11.0)
[2025-01-03 03:05] LABS: Anion Gap 10 (5-15); BUN 43 mg/dL (4-19); BUN/Creat Ratio 28.0 RATIO (10-20); Calcium,Total 9.0 mg/dL (7.6-11.0); Carbon Dioxide 22.4 mmol/L (21.0-32.0); Chloride 103 mmol/L (98-108); Estimated Creatinine Clearance 70.07 ml/min (50-250); Glucose 197 mg/dL (70-99); Potassium 6.4 mmol/L (3.3-5.1)
[2025-01-03] MEDS: Insulin Lispro 10 UNIT in Syringe 0 ML 6 UNIT IV (03:55)
[2025-01-03] MEDS: Albuterol *CONC* 2.5mg/0.5mL VIAL.NEB. 10 MG INHALATION (03:56)
--- NOTE | 2025-01-03 05:55 | EKG12_ITS ---
Test Reason : AM
[2025-01-03] MEDS: Budesonide Respules 0.5 MG/2 ML AMPUL.NEB. INHALATION ×2 (06:35→18:16)
[2025-01-03] MEDS: Albuterol 2.5 MG/3 ML VIAL.NEB. INHALATION ×2 (06:35→18:16)
[2025-01-03 08:03] LABS: Hematocrit 23.4 % (40-54); Hemoglobin 6.8 g/dL (13.0-16.5); Mean Corp Hgb Conc 29.1 g/dL (32-36); Mean Corpuscular Volume 87.6 fL (80-94); Mean Platelet Vol. 10.0 fl (6.2-12.0); Platelet Count 242 K/mm3 (150-450); RBC Distribution Width CV 18.5 % (11.6-14.6); RBC Distribution Width SD 57.2 fl (35.1-43.9); Red Blood Count 2.67 M/mm3 (4.6-6.2); White Blood Count 8.8 K/mm3 (4.4-11.0)
[2025-01-03] MEDS: Pantoprazole Sodium 40 MG in 0.9% Normal Saline (100mL MB+) 100 ML 330 MG IV ×2 (08:11→22:55)
[2025-01-03] MEDS: Ketoconazole Cream 1 APPLIC TOPICAL ×2 (08:12→22:58)
[2025-01-03 08:21] LABS: Prothrombin Time (Protime)PT. 14.1 SECONDS (11.7-14.9)
[2025-01-03 08:22] LABS: Partial Thromboplast Time 29.9 Seconds (24.1-36.2)
[2025-01-03 13:37] LABS: Anion Gap 9 (5-15); BUN 41 mg/dL (4-19); BUN/Creat Ratio 30.3 RATIO (10-20); Calcium,Total 9.2 mg/dL (7.6-11.0); Carbon Dioxide 25.6 mmol/L (21.0-32.0); Chloride 104 mmol/L (98-108); Estimated Creatinine Clearance 79.41 ml/min (50-250); Glucose 149 mg/dL (70-99); Potassium 5.7 mmol/L (3.3-5.1)
--- NOTE | 2025-01-03 14:10 | CASEMGMT ---
Addendum entered by Simona George 01/03/25 17:34: 5 PM: Informed by Rylee discharge assistant boiler operator, that pt is now confused. Noted nursing handoff also reports pt still having some confusion at times. JAYCOB BRIGHT placed call to pt's , Susi. She was made aware when this RN CM was in room for assessment that pt was oriented and able to answer all questions appropriately but is now having some confusion. Reviewed most of the questions on the RN DEANGELO assessment and the info pt had provided and she stated all info was correct. She was made aware pt stated he is weak and would benefit going somewhere to get stronger. Also made aware that he was agreeable to going somewhere as long as it was only short-term and not at [facility]. voices appreciation for this, stating she also feels he needs to get stronger before returning home. Discussed [facility]'s SNF benefits of 20-days as long as he has qualifying 3 [place] In-pt stay.She was also made aware if pt goes to SNF under [facility] A, that [facility] in-pt stay will most-likely need to be billed under [facility] instead of [facility]. Further questions answered. She voices understanding. She states she is not sure what SNF she would like pt to go to. She states she will be coming in to see pt tomorrow. Made aware a SNF list will be placed in pt's room for her to review and made aware to choose top 3 preferences. Original Note: RN?CM?ASSESSMENT ? RN?CM?to room to meet with patient for initial transition planning/care coordination?assessment.?RN?CM?introduced self and role at [facility].? Pt voices understanding and consents to?assessment?at this time.? Pt resting in bed in no distress at this time.? Pt is A/O at this time and answers all questions appropriately.?? Care providers, pharmacy, and demographics verified/updated at this time. ? Strata: 2 PCP: Agata MEIER Specialists: primary special education teacher @ [facility]: [facility], [facility]it:[facility] only. LNOK: , Susi. Son, Eduardo. Living Arrangements: Lives w/ and son, Eduardo, in one-story home w/ramp entrance. Pt is very sedentary @ home and stays in his electric recliner most of the time. When getting up to bathroom, he stands/pivots to W/C. Then once he gets to the bathroom door, he walks 4 or 5 steps into the bathroom using a Cypriot crutch. Pt sponge-baths and assists. manages all home tasks. Pt stated he has had some falls @ home in the past where they had to call 911 to assist him up. Transportation:?Pt states he has not driven for about 1-2 months. Son provides transportation. DME: States has the following DME:?Electric recliner, W/C, Cypriot crutches, nebulizer, functioning glucometer w/supplies. Pt states they also have a BSC and hospital bed, but does not use. Denies having home O2. Does not have a pulse ox. JAYCOB BRIGHT recommended to get one. He states he will [facility] to see if they will cover for this. HHC/SNF: No hx of SNF. He states he has had HHC in the past through the [facility]. Discussed discharge planning. Pt states he is weak and he feels he would benefit from going somewhere to get therapy before returning home. He did state, though, that he does not want to go to [facility], stating, I'm afraid of those people. They will kill you. Discussed [facility] SNF benefits of 20-day as long as he has qualifying 3 midnight In-pt stay. He states he would be agreeable to going somewhere as long as it is just short term and if I can go somewhere besides [facility]. JAYCOB BRIGHT spoke w/Sariah @ the [facility] transfer center: [phone], ext [phone]. She states pt is not service connected. ? ?PLAN:??SNF. ? Danielle BSN?RN?CM ?
--- NOTE | 2025-01-03 14:50 | WOUNDNOTE ---
wound photo: sacrum
--- NOTE | 2025-01-03 15:43 | CASEMGMT ---
Discharge Planning A list of?SNF providers including quality and resource use data and consistent with the patient's preferred geographic region, medical needs, and insurance network was created in [employer] Guide.? This list was provided to the pt. Pt asked to review list and pick his top three choices. Rylee Gonzales, Discharge Planning Asst.
--- NOTE | 2025-01-03 16:33 | CASEMGMT ---
Discharge Planning This residential mortgage underwriter returned to pts room to obtain snf choices. Pt replied that he would look at the list when he got home. Assisted pt getting his O2 placed correctly in nose (x2). Reported confusion to nursing as RN CM states her assessment with him was appropriate. Floor RN CM updated. Rylee Gonzales DC Planning Asst.
[2025-01-03] MEDS: Nicotine (PBKC) 21 MG Patch TD (17:03)
--- NOTE | 2025-01-03 19:26 | PN.HOSP_ITS ---
Reason for Visit
--- NOTE | 2025-01-03 19:26 | PCM.PN.HOSP ---
Reason for Visit Chief Complaint: Shortness of breath with exertion Subjective Subjective Patient was seen and examined today, his EGD was canceled due to electrolyte abnormalities-high potassium-and his ongoing anemia. I ordered 2 additional units of packed red blood cells to be transfused today and repeat labs will be obtained at 8:00 tonight. Objective Data Objective Data Vital Signs: Vital Signs Temp Pulse Resp BP Pulse Ox O2 Del Method O2 Flow Rate 97.6 F L 98 18 130/99 H 97 Nasal Cannula 4 01/03/25 15:00 01/03/25 15:00 01/03/25 15:00 01/03/25 15:00 01/03/25 15:00 01/03/25 15:00 01/03/25 15:00 Oxygen Flow Rate (L/min) 4 Oxygen Delivery Method Nasal Cannula Weight: 144.7 kg Body Mass Index (BMI) 40.9 Intake & Output: Intake and Output for Last 24 Hours 01/01/25 01/02/25 01/03/25 23:59 23:59 23:59 Intake Total 1000 / 1000 2099 / 2099 Output Total 2049 / 2049 Balance 1000 / 250 50 / 50 Lab / Micro Data 01/04/25 08:19 01/04/25 08:19 Labs: Laboratory Results - last 24 hr 01/02/25 12:50: Iron 19 L, TIBC 370, Iron Saturation 5.1 L, Unsaturated IBC 351, Ferritin 12 L, Vitamin B12 1284 H 01/02/25 14:00: Hemoglobin A1c 6.7 H 01/02/25 14:29: Crossmatch See Detail 01/02/25 14:29: Crossmatch See Detail 01/02/25 14:29: Crossmatch See Detail 01/02/25 21:54: POC Glucose 200 H 01/02/25 22:36: Troponin T High Sens 30 H D 01/03/25 01:34: WBC 7.7, RBC 2.44 L, Hgb 6.2 L, Hct 20.9 L, MCV 85.7, MCH 25.4 L, MCHC 29.7 L D, RDW Std Deviation 54.1 H, RDW Coeff of Jm 17.7 H, Plt Count 224, MPV 10.1, Sodium 136, Potassium 6.4 H*, Chloride 103, Carbon Dioxide 22.4, Anion Gap 10, BUN 43 H, Creatinine 1.53 H, Estim Creat Clear Calc 70.07, Est GFR (MDRD) Non-Af 49 L, BUN/Creatinine Ratio 28.0 H, Glucose 197 H, Calcium 9.0 01/03/25 03:45: POC Glucose 175 H 01/03/25 06:28: POC Glucose 178 H 01/03/25 07:43: WBC 8.8, RBC 2.67 L, Hgb 6.8 L, Hct 23.4 L, MCV 87.6, MCH 25.5 L, MCHC 29.1 L, RDW Std Deviation 57.2 H, RDW Coeff of Jm 18.5 H, Plt Count 242, MPV 10.0, PT 14.1, INR 1.1, APTT 29.9 01/03/25 13:05: Sodium 138, Potassium 5.7 H, Chloride 104, Carbon Dioxide 25.6, Anion Gap 9, BUN 41 H, Creatinine 1.35 H, Estim Creat Clear Calc 79.41, Est GFR (MDRD) Non-Af 57 L, BUN/Creatinine Ratio 30.3 H, Glucose 149 H, Calcium 9.2 Micro: Microbiology 01/02/25 14:32 Stool Stool Occult Blood ([place]) - Final Occult Blood Positive Radiography Diagnostic Testing: Radiology Impression Echocardiogram 01/02/25 16:36 Interpretation Summary Normal LV size. The left ventricular ejection fraction is 60 %. There is mild to moderate mitral annular calcification. Mild concentric left ventricular hypertrophy. Stage 1 diastolic dysfunction. Ordering Physician: Keyur Camacho Referring Physician: [facility] Performed By: Jada Orozco RCS Physical Exam Const alert, oriented x3 and no apparent distress Constitutional Narrative: Patient has class III obesity, he exhibits mild confusion General Appearance: cooperative, well kempt and well developed Orientation / Consciousness: awake, oriented to person and oriented to place HEENT normocephalic, head/scalp atraumatic and moist oral mucous membranes Eyes PERRL, EOMs intact bilaterally and conjunctivae normal Neck supple, no JVD, thyroid normal and no carotid bruits General: trachea midline Resp normal respiratory effort, no retractions, no use of accessory muscles and clear to auscultation bilaterally Auscultation: Negative for rales, rhonchi or wheezes Cardio regular rate, regular rhythm, no murmurs, no rub and no gallops GI normal to inspection, nondistended, normoactive bowel sounds, soft to palpation, non-tender and non-distended Extremity Extremity Narrative: There is generalized edema noted over the patient's lower legs Skin Skin Narrative: There are pressure injury areas on the sacrum which are stage II wounds Neuro CN's II-XII intact bilaterally, moves all extremities, no focal motor deficits and no sensory deficits noted Neuro Narrative: Patient exhibits mild confusion Sensorium / Orientation: awake and alert Speech: speech normal Psych Psych Narrative: Patient is mildly confused Assessment & Plan Assessment/Plan (1) Anemia: PLAN: Plan 1. Severe anemia-unknown whether this is chronic or acute-requiring blood transfusion, believed to be secondary to undiagnosed GI bleed-patient will undergo endoscopy hopefully tomorrow, continue IV Protonix #2 blood loss anemia from gastrointestinal source-unknown upper versus lower and unknown timeframe-patient remains on a Protonix drip at this time, he will undergo endoscopy #3 hyperkalemia-probably secondary to lisinopril-Kayexalate was given today, BMP will be rechecked tomorrow #4 type 2 diabetes-patient is on sliding scale insulin fingerstick blood sugars #5 class III obesity-complicates care, management, recovery, and prognosis #6 chronic obstructive lung disease-patient is a current smoker, he does not use oxygen at home because the [facility] will not provide it because he continues to smoke, patient is on as needed albuterol treatments and budesonide aerosols #7 hypoxia secondary to #6-pulse ox will be monitored Total clinical time spent by myself addressing the patient's medical issues, reviewing all of his data, and collaborating with patient's care team: 35 minutes Charges/Coding Visit Charges Inpatient E&M: 88792 Subs Hosp L2
[2025-01-03 20:15] LABS: Hemoglobin 8.2 g/dL (13.0-16.5)
[2025-01-03 20:53] LABS: Anion Gap 12 (5-15); BUN 41 mg/dL (4-19); BUN/Creat Ratio 30.3 RATIO (10-20); Calcium,Total 8.9 mg/dL (7.6-11.0); Carbon Dioxide 23.2 mmol/L (21.0-32.0); Chloride 103 mmol/L (98-108); Estimated Creatinine Clearance 79.41 ml/min (50-250); Glucose 121 mg/dL (70-99); Potassium 5.8 mmol/L (3.3-5.1)
[2025-01-04] VITALS (20 sets, daily range): BP systolic 79–149; BP diastolic 45–110; PULSE 69–112; RESP 14–25; TEMP 35.4–36.9; O2SAT 4–100
[2025-01-04] MEDS: Budesonide Respules 0.5 MG/2 ML AMPUL.NEB. INHALATION ×2 (06:28→19:03)
[2025-01-04 08:31] LABS: Hematocrit 29.0 % (40-54); Hemoglobin 8.6 g/dL (13.0-16.5); Mean Corp Hgb Conc 29.7 g/dL (32-36); Mean Corpuscular Volume 88.7 fL (80-94); Mean Platelet Vol. 9.5 fl (6.2-12.0); Platelet Count 253 K/mm3 (150-450); RBC Distribution Width CV 18.1 % (11.6-14.6); RBC Distribution Width SD 57.0 fl (35.1-43.9); Red Blood Count 3.27 M/mm3 (4.6-6.2); White Blood Count 16.8 K/mm3 (4.4-11.0)
[2025-01-04 09:08] LABS: Anion Gap 15 (5-15); BUN 41 mg/dL (4-19); BUN/Creat Ratio 29.1 RATIO (10-20); Calcium,Total 9.3 mg/dL (7.6-11.0); Carbon Dioxide 23.0 mmol/L (21.0-32.0); Chloride 104 mmol/L (98-108); Estimated Creatinine Clearance 76.03 ml/min (50-250); Glucose 117 mg/dL (70-99); Potassium 5.1 mmol/L (3.3-5.1)
[2025-01-04] MEDS: Pantoprazole Sodium 40 MG in 0.9% Normal Saline (100mL MB+) 100 ML 330 MG IV ×2 (09:40→21:32)
[2025-01-04] MEDS: Ketoconazole Cream 1 APPLIC TOPICAL ×2 (09:41→22:09)
[2025-01-04] MEDS: Nicotine (PBKC) 21 MG Patch TD (09:43)
--- NOTE | 2025-01-04 15:11 | CASEMGMT ---
RN CM into pt room, pt and son in the room. Pt provided top 3 choices: 1) [facility]CU 2)[facility] 3) [facility]. Follow therapy for recommendations and send referral on Monday to see if able to accept.
--- NOTE | 2025-01-04 16:42 | NURSING ---
This RN called into the patients room by the aide stating that pt had ingested his Coloplast Triad Hydrophilic Wound Paste. Upon entering the room, the tube of hydrophollic wound dressing tube has very little remaining in it with the lid off. Pt's lips and tongue are white, like the paste. Upon asking the patient if he ate this, while holding up the tube, the patient states why yes i did. Upon asking the patient why he ate it, pt states why not. His toothpaste also had the lid off and some toothpaste is missing that was not used by staff previously. Removed all none food items from patients reach and educated pt on not eating non food items. Education not received. Dr Monet notified.
[2025-01-04 17:14] LABS: Allen Test Positive; Base Excess 3 mmol/L (-2 to +2); FI02 4.0; PO2 58 mmHG (75-100); SITE R Radial; SO2 83 % (95-99); Time Given 17:12:30
[2025-01-04 18:04] LABS: Ammonia 27.2 umol/L (16-60)
--- NOTE | 2025-01-04 18:36 | PN.HOSP_ITS ---
Reason for Visit
--- NOTE | 2025-01-04 18:36 | PCM.PN.HOSP ---
Reason for Visit Chief Complaint: Shortness of breath with exertion Subjective Subjective Patient was seen and examined today, he has become increasingly confused today and he appeared anxious earlier on my examination, I gave him 1 dose of oral Ativan today. An ABG was obtained that showed increased pCO2 and decreased O2 at 58, the pCO2 was in the 70s and the patient was acidotic but not severely acidotic. Due to his claustrophobia, patient was unable to keep the BiPAP mask on and was pulling on it continuously, I talked to the patient's daughter and son on the phone they confirmed that the patient would not want to be intubated but they had no discussions with the patient concerning CPR. Patient's CODE STATUS was adjusted therefore to no intubation but full medical measures otherwise. Due to the need for sedation to have the patient wear the BiPAP, I made the decision to transfer the patient up to ICU today. His white count also this morning was elevated and I have elected to obtain blood cultures and place him on a broad-spectrum antibiotic. Patient's hemoglobin appears to be stable at this time however and his potassium this morning was in the normal range. Objective Data Objective Data Vital Signs: Vital Signs Temp Pulse Resp BP Pulse Ox O2 Del Method O2 Flow Rate 98.5 F 112 H 18 105/80 98 Nasal Cannula 5 01/04/25 16:11 01/04/25 16:11 01/04/25 16:11 01/04/25 16:11 01/04/25 16:11 01/04/25 16:11 01/04/25 16:11 Oxygen Flow Rate (L/min) 5 Oxygen Delivery Method Nasal Cannula Weight: 144.7 kg Body Mass Index (BMI) 40.9 Intake & Output: Intake and Output for Last 24 Hours 01/02/25 01/03/25 01/04/25 23:59 23:59 23:59 Intake Total 1000 / 1000 2200 / 2200 100 / 100 Output Total 2050 / 3250 1200 / 1200 Balance 1000 / 250 150 / -1050 -1100 / -1100 Lab / Micro Data 01/04/25 08:19 01/04/25 08:19 Labs: Laboratory Results - last 24 hr 01/03/25 11:29: POC Glucose 141 H 01/03/25 16:33: POC Glucose 151 H 01/03/25 19:51: Hgb 8.2 L, Sodium 137, Potassium 5.8 H, Chloride 103, Carbon Dioxide 23.2, Anion Gap 12, BUN 41 H, Creatinine 1.35 H, Estim Creat Clear Calc 79.41, Est GFR (MDRD) Non-Af 57 L, BUN/Creatinine Ratio 30.3 H, Glucose 121 H, Calcium 8.9 01/03/25 22:53: POC Glucose 122 H 01/04/25 06:14: POC Glucose 106 01/04/25 08:19: WBC 16.8 H, RBC 3.27 L, Hgb 8.6 L, Hct 29.0 L, MCV 88.7, MCH 26.3 L, MCHC 29.7 L, RDW Std Deviation 57.0 H, RDW Coeff of Jm 18.1 H, Plt Count 253, MPV 9.5, Sodium 141, Potassium 5.1, Chloride 104, Carbon Dioxide 23.0, Anion Gap 15, BUN 41 H, Creatinine 1.41 H, Estim Creat Clear Calc 76.03, Est GFR (MDRD) Non-Af 54 L, BUN/Creatinine Ratio 29.1 H, Glucose 117 H, Calcium 9.3 01/04/25 13:34: POC Glucose 112 H 01/04/25 17:28: Ammonia 27.2 Micro: Microbiology 01/02/25 14:32 Stool Stool Occult Blood ([place]) - Final Occult Blood Positive ABG Data ABG results: ABG 01/04/25 17:10 Specimen Type ART Sample Site R Radial pH 7.22 L Bicarbonate Actual 31.0 H Total CO2 33 Base Excess 3 H O2 Saturation 83 L O2 % 4.0 ABG pCO2 76.1 H* ABG pO2 58 L Zaid Test Positive O2 Delivery Device Cannula Vent Mode Not entered Crit Call To/Read Back Yes Blood Gas Notified Whom keyon Blood Gas Notified Time 17:12:30 Physical Exam Const no apparent distress Constitutional Narrative: Patient has class III obesity, patient is confused and will not follow commands reliably General Appearance: well developed HEENT normocephalic, head/scalp atraumatic and moist oral mucous membranes Eyes PERRL, EOMs intact bilaterally and conjunctivae normal Neck supple, no JVD, thyroid normal and no carotid bruits General: trachea midline Resp no retractions, no use of accessory muscles and clear to auscultation bilaterally Resp Narrative: Patient appears to have tachypnea Auscultation: Negative for rales, rhonchi or wheezes Cardio regular rate, regular rhythm, S1 normal heart sound, S2 normal heart sound, no murmurs, no rub and no gallops GI normal to inspection, nondistended, normoactive bowel sounds, soft to palpation, non-tender and non-distended Extremity no clubbing, cyanosis or edema Neuro CN's II-XII intact bilaterally and no focal motor deficits Neuro Narrative: Patient is confused and somnolent at times Psych Psych Narrative: Patient is confused and somnolent at time Assessment & Plan Assessment/Plan (1) Anemia: PLAN: Plan 1. Severe anemia-unknown whether this is chronic or acute-requiring blood transfusion, believed to be secondary to undiagnosed GI bleed-patient will undergo endoscopy when stable, he remains on IV Protonix #2 blood loss anemia from gastrointestinal source-unknown upper versus lower and unknown timeframe-patient remains on a Protonix drip at this time, he will undergo endoscopy when medically stable #3 hyperkalemia-probably secondary to lisinopril-patient's potassium is normal today #4 type 2 diabetes-patient is on sliding scale insulin fingerstick blood sugars #5 class III obesity-complicates care, management, recovery, and prognosis #6 chronic obstructive lung disease-patient is a current smoker, he does not use oxygen at home because the [facility] will not provide it because he continues to smoke, patient is on as needed albuterol treatments, DuoNeb treatments, and budesonide aerosols #7 Acute combined respiratory failure-patient will be moved up to the ICU and placed on BiPAP, due to his claustrophobia he will not keep the BiPAP mask on and will need to be placed on Precedex. Blood gases will be repeated tonight, patient has a no intubation order #8 metabolic encephalopathy-secondary to hypercapnia and hypoxia #9 leukocytosis-etiology unclear, suspect underlying infection, site unclear, will place on meropenem after obtaining blood cultures, labs will be repeated tomorrow #10 acute diastolic CHF- I did a chest x-ray today which was read out as showing vascular congestion, I placed the patient on IV Lasix, echocardiogram will need to be obtained Total clinical time spent by myself addressing the patient's medical issues, reviewing all of his data, and collaborating with patient's care team: 50 minutes Charges/Coding Visit Charges Inpatient E&M: 02960 Subs Hosp L3
[2025-01-04] MEDS: Dexmedetomidine 1,000 mcg in 0.9% NS 240 mL 54.3 MCG CONT INF (18:40)
[2025-01-04 19:26] LABS: Base Excess 4 mmol/L (-2 to +2); FI02 40.0; PEEP 12; PO2 116 mmHG (75-100); RR 14; SITE L Radial; SO2 97 % (95-99); Time Given 19:21:29
[2025-01-04] MEDS: TITRATION PARAMETER CHANGE 1 EACH IV (19:48)
[2025-01-04] MEDS: Meropenem 1 GM in 0.9% Normal Saline (100mL MB+) 100 ML IV (21:31)
[2025-01-04] MEDS: 0.9% Normal Saline (250mL Bag) 250 ML 15 ML IV ×2 (21:32→21:33)
[2025-01-04 23:09] LABS: Base Excess 4 mmol/L (-2 to +2); FI02 40.0; PEEP 12; PO2 103 mmHG (75-100); RR 16; SITE R Radial; SO2 96 % (95-99); Time Given 23:04:54
--- NOTE | 2025-01-04 23:23 | PCM.HOSP.N ---
Hospitalist Note I was informed by respiratory therapist that patient's repeat ABG showed pH of 7.24 with pCO2 of 73.9 and pO2 of 103. He is on BiPAP with respirate rate of 16. I was informed by patient's primary hospitalist that family had requested for him to have CPR but that he did not want to be on a ventilator. CODE STATUS was therefore entered as full code with the caveat that he would not be intubated. I called patient's son Eduardo Barrera ([phone], this was his mother Susi Barrera's line but son answered) at 11:21pm. I spoke extensively to patient's son about patient's condition with a pCO2 not improving and patient not being very responsive. I explained to them that they repeat ABG has shown that the pCO2 was not improving like we expected and that if this continued, patient would going to worsening respiratory acidosis and going to cardiopulmonary arrest. At that point doing CPR without putting him on a ventilator might be futile due to the buildup of the CO2. I proceeded to explain that per the state [facility] status and loss on advanced directives, they recognize advanced directives with a full code where patient would have CPR and intubation, and DNR and IR. I explained to them that the 2 types of DNR recognized with a DNR CC and the DNR CCA. I further explained that the DNR CCA could be done with intubation and without intubation. However with family saying that patient would want CPR but no intubation, that did not really fit in any of the clearly defined CODE STATUS positions and would have written a limited code. However as patient was not really improving we needed to be very clear about patient's CODE STATUS. Son at this point stated that this hospitalist had his and his mother's permission as next of kin to do everything we could to see if the patient and that included putting him on a ventilator if needed as they wanted him alive. I clarified that they wanted patient to have the chest compressions and also be on a ventilator if needed and son stated that he they would want both. Patient's CODE STATUS now clarified to be FULL CODE with no caveat.
--- NOTE | 2025-01-04 23:45 | NURSING ---
Dr. Smallwood at bedside to assess patient after speaking with the family regarding code status clarification d/t persistent hypercapnia. Decision made to consult critical care to see if they have any different recommendations at this time. Consult placed for manager of transportation, awaiting beam-in from them at this time.
[2025-01-05] VITALS (43 sets, daily range): BP systolic 72–155; BP diastolic 44–90; PULSE 61–82; RESP 14–52; TEMP 35.3–36.5; O2SAT 13–99; BMI 41.0
[2025-01-05] MEDS: Albuterol 2.5 MG/3 ML VIAL.NEB. INHALATION ×2 (00:13→06:50)
--- NOTE | 2025-01-05 00:40 | PCMCONS.TICU ---
HPI Consult Data Date of Consult: 01/05/25 HPI Narrative Reason for Consultation: Acute Hypercapnea, encephalopathy HPI Narrative: NGA LARSON, is a 69 M with morbid obesity, Asthma/COPD, HTN, DM, Chronic back pain was admitted for GI bleed. Patient received 2 units of PRBC and was found to have stool occult positive. Patient was supposed to get EGD on 01/04 but was cancelled due to hyperkalemia. Patient was given Kayexalate. Patient was becoming hypercapneic therefore BiPAP was started. Patient's family initially refused for intubation but later agreed if patient needed to be intubated. Patient currently on AVAPS and precedex. Patient started on precedex due to agitation while on AVAPs. Critical care team consulted for respiratory failure. [facility] Medical History DMII (diabetes mellitus, type 2) Severe sepsis Cellulitis HTN (hypertension) Knee arthropathy Medical History no medical history Home Medications ?Medication ?Instructions ?Recorded ?Last Taken ?Type aspirin 81 mg chewable tablet 81 mg PO DAILY 05/20/17 Unknown History atorvastatin 40 mg tablet 40 mg PO QHS 05/20/17 Unknown History cholecalciferol (vitamin D3) 125 5,000 unit PO DAILY 05/20/17 01/02/25 History mcg (5,000 unit) capsule gabapentin 300 mg capsule 600 mg PO TID 05/20/17 01/02/25 History (Neurontin) metformin 500 mg tablet 1,000 mg PO BID 05/20/17 01/02/25 History nortriptyline 10 mg capsule 20 mg PO BID 05/20/17 01/02/25 History albuterol sulfate 2.5 mg/3 mL 2.5 mg inhalation Q6H PRN 01/02/25 01/02/25 History (0.083 %) solution for nebulization shortness of breath or wheezing cetirizine 10 mg tablet 10 mg PO DAILY PRN allergy symptoms 01/02/25 01/02/25 History diclofenac sodium 1 % topical gel 2 g topical BID ARTHRITIS 01/02/25 12/26/24 History furosemide 20 mg tablet 20 mg PO Q12H PRN LEG swelling 01/02/25 01/02/25 History ibuprofen 200 mg tablet (I-Prin) 400 mg PO Q6H PRN pain 01/02/25 01/01/25 History ketoconazole 2 % topical cream 1 applic topical BID SCROTUM AND 01/02/25 01/02/25 History GROIN lanolin alcohols-mineral 1 applic topical DAILY DRY SKIN 01/02/25 01/01/25 History oil-w.petrolatum-ceresin topical cream (Eucerin topical cream) lisinopril 30 mg tablet 30 mg PO DAILY BLOOD PRESSURE 01/02/25 01/02/25 History mometasone 220 mcg/actuation(120 2 inh inhalation BID 01/02/25 01/02/25 History doses)breath activated powder inhaler (Asmanex Twisthaler) ondansetron 4 mg disintegrating 4 mg PO Q12H PRN MODERATE NAUSEA 01/02/25 12/26/24 History tablet zinc oxide-petrolatum 20 %-51 % 1 applic topical BID 01/02/25 01/01/25 History topical paste Allergy/AdvReac Type Severity Reaction Status Date / Time Penicillins (PCN) Allergy Anaphylaxis Verified 01/02/25 13:00 shellfish derived Allergy Rash Verified 01/02/25 13:00 Family History no significant family his Surgical History H/O spinal fusion H/O laminectomy Surgical History no surgical history Social History Smoking Status: Current every day smoker tobacco type: cigarettes ROS ROS Narrative as per HPI Objective Data Objective Data Vital Signs: Vital Signs Last response Temperature 35.6 C L 01/05/25 00:00 Temperature Source Core 01/05/25 00:00 Pulse Rate 66 01/05/25 00:14 Pulse Strength Weak (1+) 01/04/25 10:00 Respiratory Rate 15 01/05/25 00:14 Respiratory Effort Short of Breath, Labored 01/04/25 23:58 Respiratory Depth Normal 01/04/25 23:58 Respiratory Pattern Normal 01/05/25 00:14 Blood Pressure 97/53 L 01/05/25 00:00 Blood Pressure Mean 67 01/05/25 00:00 Blood Pressure Source Monitor 01/05/25 00:00 Blood Pressure Position Semi-Fowlers 01/05/25 00:00 Blood Pressure Location Left Arm 01/05/25 00:00 Pulse Ox 98 01/05/25 00:00 Oxygen Delivery Method Bi-pap 01/05/25 00:00 Oxygen Flow Rate (L/min) 5 01/04/25 16:11 Fraction of Inspired Oxygen (FIO2) 40 01/05/25 00:00 I&O: I&O Last 24 Hours 01/04/25 01/04/25 01/05/25 11:59 23:59 11:59 Intake Total 100 / 379.97 272.74 / 379.97 114.46 / 114.46 Output Total 1200 / 2075 725 / 2075 150 / 150 Balance -1100 / -1695.03 -452.26 / -1695.03 -35.54 / -35.54 I&O: Total Stay 01/02/25 12:59 thru 01/05/25 00:33 Intake Total 3687.20 Output Total 4125 Balance -437.80 Current Meds Ordered / Administered: Current meds ordered / Administered Generic Name Dose Route Start Last Admin Trade Name Freq PRN Reason Stop Dose Admin Albuterol Sulfate 2.5 mg 01/02/25 18:18 01/05/25 00:13 Albuterol 2.5 Mg/3 Ml Vial.Neb. INHALATION 2.5 mg Q6H PRN Administration shortness of breath or wheezing Albuterol/Ipratropium 3 ml 01/04/25 17:45 01/04/25 19:02 Ipratropium/Albuterol Sulfate 3 Ml Ampul.Neb INHALATION 3 ml Q6H.RT WOLF Administration Budesonide 0.5 mg 01/02/25 18:45 01/04/25 19:03 Budesonide Respules 0.5 Mg/2 Ml Ampul.Neb. INHALATION 0.5 mg Q12H.RT WOLF Administration Furosemide 40 mg 01/04/25 17:20 01/04/25 19:48 Furosemide 40 Mg/4 Ml Vial IV Not Given BIDLX WOLF Protocol Glucagon 1 mg 01/02/25 18:07 Glucagon 1 Mg/Ml Syringe IM X1 PRN Hypoglycemia Protocol Dextrose 250 mls @ 0 mls/hr 01/02/25 18:07 Dextrose 10%-Water IV .Q0M PRN HYPOGLYCEMIA Protocol As Directed Pantoprazole Sodium 40 mg/ 100 mls @ 330 mls/hr 01/02/25 18:07 01/04/25 21:51 Sodium Chloride IV Infused Q12 WOLF Infusion Meropenem 1 gm/ Sodium 100 mls @ 33 mls/hr 01/04/25 22:00 01/05/25 00:33 Chloride IV Infused Q8 WOLF Infusion Dexmedetomidine HCl 1,000 mcg/ 250 mls @ 18.088 mls/hr 01/04/25 18:25 01/05/25 00:15 Sodium Chloride CONT INF 0.8 mcg/kg/hr .[id number] WOLF 28.9 mls/hr Protocol Titration 0.5 MCG/KG/HR Sodium Chloride 250 mls @ 15 mls/hr 01/04/25 21:23 01/04/25 21:32 IV 15 mls/hr .[id number] PRN Administration Saline Flush Sodium Chloride 250 mls @ 15 mls/hr 01/04/25 21:23 01/04/25 21:33 IV 15 mls/hr .[id number] PRN Administration Additional IVPB Infusion Insulin Human Lispro 0 unit 01/02/25 22:00 01/04/25 22:08 Insulin Lispro 100 Unit/Ml Insuln.Pen SC Not Given ACHS [facility] Protocol Ketoconazole 1 applic 01/02/25 22:00 01/04/25 22:09 Ketoconazole Cream TOPICAL 1 applic BID WOLF Administration Protocol Nicotine 21 mg 01/03/25 16:40 01/04/25 09:43 Nicotine (Pbkc) 21 Mg Patch TD 21 mg DAILY WOLF Administration Sodium Chloride 10 - 40 ml 01/04/25 21:23 0.9% Saline Lock 10 Ml Syringe IV UD PRN SALINE FLUSH Physical Exam Narrative PHYSICAL EXAMINATION General: no acute distress; Sedated with Precedex HEENT: PERRL; EOMI; Anicteric Sclera; No thyromegaly, JVD, Lymphadenopathy Cardiovascular: Regular Rate and Rhythm; No murmurs, rubs, gallops; no displaced PMI Respiratory: no crackles, wheezes, or rhonchi Abdominal: Non-tender; Non-distended; Active BS x 4; No Hepatosplenomegaly Extremities: Warm, well perfused; No clubbing, cyanosis, edema; capillary refill < 2sec Neurological: Unable to perform Lab / Micro Data 01/04/25 08:19 01/04/25 08:19 Labs: Laboratory Results - last 24 hr 01/03/25 16:33: POC Glucose 151 H 01/03/25 22:53: POC Glucose 122 H 01/04/25 06:14: POC Glucose 106 01/04/25 08:19: WBC 16.8 H, RBC 3.27 L, Hgb 8.6 L, Hct 29.0 L, MCV 88.7, MCH 26.3 L, MCHC 29.7 L, RDW Std Deviation 57.0 H, RDW Coeff of Jm 18.1 H, Plt Count 253, MPV 9.5, Sodium 141, Potassium 5.1, Chloride 104, Carbon Dioxide 23.0, Anion Gap 15, BUN 41 H, Creatinine 1.41 H, Estim Creat Clear Calc 76.03, Est GFR (MDRD) Non-Af 54 L, BUN/Creatinine Ratio 29.1 H, Glucose 117 H, Calcium 9.3 01/04/25 13:34: POC Glucose 112 H 01/04/25 17:27: POC Glucose 147 H 01/04/25 17:28: Ammonia 27.2 01/04/25 22:05: POC Glucose 140 H ABG Data ABG results: ABG 01/04/25 01/04/25 01/04/25 17:10 19:18 23:03 Specimen Type ART ART ART Sample Site R Radial L Radial R Radial pH 7.22 L 7.24 L 7.24 L Bicarbonate Actual 31.0 H 31.5 H 31.7 H Total CO2 33 34 34 Base Excess 3 H 4 H 4 H O2 Saturation 83 L 97 96 O2 % 4.0 40.0 40.0 ABG pCO2 76.1 H* 73.8 H* 73.9 H* ABG pO2 58 L 116 H 103 H Zaid Test Positive N/A N/A Respiration Rate 14 16 O2 Delivery Device Cannula BiPAP BiPAP Vent Mode Not entered Not entered Not entered Tidal Volume 500.0 550.0 POC PEEP 12 12 Crit Call To/Read Back Yes Yes Yes Blood Gas Notified Whom jorge Smallwood Blood Gas Notified Time 17:12:30 19:21:29 23:04:54 Assessment and Plan . Assessment and plan: #Acute Hypercapneic Respiratory Failure #COPD exacerbation #Obesity Hypoventilation syndrome #GI bleed #Acute CHF #GABE #Hyperkalemia #DM #HTN #Chronic Back pain Plan -Monitor patient respiratory status and hemodynamics closely in ICU -Patient is high risk for needing invasive mechanical ventilation therefore closely monitoring in ICU -Continue noninvasive mechanical ventilation -Patient tolerating AVAPs -Daily ABG and CXR -Noninvasive ventilatory changes depending on ABG and Ventilatory pressures -Duonebs q6hrs -Hold Diuretics due to blood pressure -Continue Meropenam -Start on Steroids -Continue pulmicort -Monitor H/H -Transfuse PRBC to keep Hb>8 -GI consulted -SSI for DM DVT Px - SCD, no chemoprophylaxis due to GI bleed Critical Care Time:63mins The entirety of this encounter was done via Telemedicine
[2025-01-05 01:41] LABS: Base Excess 2 mmol/L (-2 to +2); FI02 30.0; PEEP 12; PO2 63 mmHG (75-100); RR 16; SITE L Radial; SO2 88 % (95-99)
[2025-01-05] MEDS: Dexmedetomidine 1,000 mcg in 0.9% NS 240 mL 28.9 MCG CONT INF (01:49)
[2025-01-05 04:04] LABS: Hematocrit 25.7 % (40-54); Hemoglobin 7.4 g/dL (13.0-16.5); Immature Granulocytes Count 0.040 X10^3/uL (0.0-0.0); Mean Corp Hgb Conc 28.8 g/dL (32-36); Mean Corpuscular Volume 88.9 fL (80-94); Mean Platelet Vol. 9.7 fl (6.2-12.0); NRBC Flagged by Analyzer 0 % (0-5); Platelet Count 203 K/mm3 (150-450); RBC Distribution Width CV 18.4 % (11.6-14.6); RBC Distribution Width SD 58.1 fl (35.1-43.9); Red Blood Count 2.89 M/mm3 (4.6-6.2); White Blood Count 7.4 K/mm3 (4.4-11.0)
[2025-01-05 04:55] LABS: AST(SGOT) 19 U/L (<=37); Alanine Aminotransfer ALT/SGPT 9 U/L (<=46); Albumin, Serum 3.0 g/dL (3.4-4.8); Alkaline Phosphatase 67 U/L (40-129); Anion Gap 8 (5-15); BUN 44 mg/dL (4-19); BUN/Creat Ratio 31.7 RATIO (10-20); Calcium,Total 8.5 mg/dL (7.6-11.0); Carbon Dioxide 27.7 mmol/L (21.0-32.0); Chloride 106 mmol/L (98-108); Estimated Creatinine Clearance 77.77 ml/min (50-250); Globulin 3.8 g/dL (2.2-4.2); Glucose 141 mg/dL (70-99); Potassium 5.2 mmol/L (3.3-5.1)
[2025-01-05] MEDS: Meropenem 1 GM in 0.9% Normal Saline (100mL MB+) 100 ML IV ×3 (05:17→21:56)
[2025-01-05] MEDS: 0.9% Saline Lock 10 ML Syringe IV ×3 (05:18→18:02)
[2025-01-05] MEDS: Budesonide Respules 0.5 MG/2 ML AMPUL.NEB. INHALATION (06:51)
[2025-01-05 09:24] LABS: Allen Test Positive; Base Excess 7 mmol/L (-2 to +2); FI02 40.0; PO2 85 mmHG (75-100); RR 20; SITE L Radial; SO2 95 % (95-99); Time Given 09:21:46
[2025-01-05] MEDS: Dexmedetomidine 1,000 mcg in 0.9% NS 240 mL 32.6 MCG CONT INF (09:28)
[2025-01-05] MEDS: Ketoconazole Cream 1 APPLIC TOPICAL ×2 (10:57→21:55)
[2025-01-05] MEDS: Nicotine (PBKC) 21 MG Patch TD (10:57)
[2025-01-05] MEDS: Pantoprazole Sodium 40 MG in 0.9% Normal Saline (100mL MB+) 100 ML 330 MG IV ×2 (12:02→21:57)
--- NOTE | 2025-01-05 14:43 | PCM.PN.TICU ---
Objective Data Objective Data Vital Signs: Vital Signs Last response Temperature 35.4 C L 01/05/25 07:00 Temperature Source Core 01/05/25 07:00 Pulse Rate 69 01/05/25 13:27 Pulse Strength Weak (1+) 01/04/25 10:00 Respiratory Rate 20 H 01/05/25 13:27 Respiratory Effort Short of Breath, Labored 01/05/25 04:00 Respiratory Depth Normal 01/05/25 04:00 Respiratory Pattern Normal 01/05/25 13:27 Blood Pressure 100/54 L 01/05/25 07:00 Blood Pressure Mean 69 01/05/25 07:00 Blood Pressure Source Monitor 01/05/25 07:00 Blood Pressure Position Semi-Fowlers 01/05/25 07:00 Blood Pressure Location Left Arm 01/05/25 07:00 Pulse Ox 13 01/05/25 13:27 Oxygen Delivery Method Bi-pap 01/05/25 07:00 Oxygen Flow Rate (L/min) 5 01/04/25 16:11 Fraction of Inspired Oxygen (FIO2) 40 01/05/25 13:27 I&O: I&O Last 24 Hours 01/04/25 01/05/25 01/05/25 23:59 11:59 23:59 Intake Total 272.74 / 379.97 503.83 / 503.83 0 / 503.83 Output Total 725 / 2075 275 / 550 275 / 550 Balance -452.26 / -1695.03 228.83 / -46.17 -275 / -46.17 I&O: Total Stay 01/02/25 12:59 thru 01/05/25 12:50 Intake Total 4076.57 Output Total 4525 Balance -448.43 Current Meds Ordered / Administered: Current meds ordered / Administered Generic Name Dose Route Start Last Admin Trade Name Freq PRN Reason Stop Dose Admin Albuterol Sulfate 2.5 mg 01/02/25 18:18 01/05/25 06:50 Albuterol 2.5 Mg/3 Ml Vial.Neb. INHALATION 2.5 mg Q6H PRN Administration shortness of breath or wheezing Albuterol/Ipratropium 3 ml 01/04/25 17:45 01/05/25 11:56 Ipratropium/Albuterol Sulfate 3 Ml Ampul.Neb INHALATION 3 ml Q6H.RT WOFL Administration Budesonide 0.5 mg 01/02/25 18:45 01/05/25 06:51 Budesonide Respules 0.5 Mg/2 Ml Ampul.Neb. INHALATION 0.5 mg Q12H.RT WOLF Administration Furosemide 40 mg 01/04/25 17:20 01/05/25 12:04 Furosemide 40 Mg/4 Ml Vial IV 40 mg BIDLX WOLF Administration Protocol Glucagon 1 mg 01/02/25 18:07 Glucagon 1 Mg/Ml Syringe IM X1 PRN Hypoglycemia Protocol Dextrose 250 mls @ 0 mls/hr 01/02/25 18:07 Dextrose 10%-Water IV .Q0M PRN HYPOGLYCEMIA Protocol As Directed Pantoprazole Sodium 40 mg/ 100 mls @ 330 mls/hr 01/02/25 18:07 01/05/25 12:02 Sodium Chloride IV 330 mls/hr Q12 WOLF Administration Meropenem 1 gm/ Sodium 100 mls @ 33 mls/hr 01/04/25 22:00 01/05/25 12:52 Chloride IV 33 mls/hr Q8 WOLF Administration Dexmedetomidine HCl 1,000 mcg/ 250 mls @ 18.088 mls/hr 01/04/25 18:25 01/05/25 09:28 Sodium Chloride CONT INF 0.9 mcg/kg/hr .[id number] WOLF 32.6 mls/hr Protocol Administration 0.5 MCG/KG/HR Sodium Chloride 250 mls @ 15 mls/hr 01/04/25 21:23 01/04/25 21:32 IV 15 mls/hr .[id number] PRN Administration Saline Flush Sodium Chloride 250 mls @ 15 mls/hr 01/04/25 21:23 01/04/25 21:33 IV 15 mls/hr .[id number] PRN Administration Additional IVPB Infusion Insulin Human Lispro 0 unit 01/05/25 12:00 01/05/25 12:08 Insulin Lispro 100 Unit/Ml Insuln.Pen SC Not Given Q6 [facility] Protocol Ketoconazole 1 applic 01/02/25 22:00 01/05/25 10:57 Ketoconazole Cream TOPICAL 1 applic BID WOLF Administration Protocol Nicotine 21 mg 01/03/25 16:40 01/05/25 10:57 Nicotine (Pbkc) 21 Mg Patch TD 21 mg DAILY WOLF Administration Sodium Chloride 10 - 40 ml 01/04/25 21:23 01/05/25 10:57 0.9% Saline Lock 10 Ml Syringe IV 10 ml UD PRN Administration SALINE FLUSH Lab / Micro Data 01/05/25 03:57 01/05/25 03:57 Labs: Laboratory Results - last 24 hr 01/02/25 14:29: Crossmatch See Detail 01/04/25 17:27: POC Glucose 147 H 01/04/25 17:28: Ammonia 27.2 01/04/25 22:05: POC Glucose 140 H 01/05/25 03:57: WBC 7.4, RBC 2.89 L, Hgb 7.4 L, Hct 25.7 L, MCV 88.9, MCH 25.6 L, MCHC 28.8 L, RDW Std Deviation 58.1 H, RDW Coeff of Jm 18.4 H, Plt Count 203, MPV 9.7, Immature Gran % (Auto) 0.500, Neut % (Auto) 66.4, Lymph % (Auto) 16.8 L, [place] % (Auto) 13.2 H, Eos % (Auto) 2.7, Baso % (Auto) 0.4, Absolute Neuts (auto) 4.9, Absolute Lymphs (auto) 1.25, Nucleated RBC % 0, Sodium 141, Potassium 5.2 H, Chloride 106, Carbon Dioxide 27.7, Anion Gap 8, BUN 44 H, Creatinine 1.38 H, Estim Creat Clear Calc 77.77, Est GFR (MDRD) Non-Af 56 L, BUN/Creatinine Ratio 31.7 H, Glucose 141 H, Calcium 8.5, Total Bilirubin 0.54, AST 19, ALT 9, Alkaline Phosphatase 67, Total Protein 6.9, Albumin 3.0 L, Globulin 3.8, Albumin/Globulin Ratio 0.8 L 01/05/25 06:06: POC Glucose 126 H 01/05/25 12:08: POC Glucose 103 ABG Data ABG results: ABG 01/04/25 01/04/25 01/04/25 17:10 19:18 23:03 Specimen Type ART ART ART Sample Site R Radial L Radial R Radial pH 7.22 L 7.24 L 7.24 L Bicarbonate Actual 31.0 H 31.5 H 31.7 H Total CO2 33 34 34 Base Excess 3 H 4 H 4 H O2 Saturation 83 L 97 96 O2 % 4.0 40.0 40.0 ABG pCO2 76.1 H* 73.8 H* 73.9 H* ABG pO2 58 L 116 H 103 H Zaid Test Positive N/A N/A Respiration Rate 14 16 O2 Delivery Device Cannula BiPAP BiPAP Vent Mode Not entered Not entered Not entered Tidal Volume 500.0 550.0 POC PEEP 12 12 Crit Call To/Read Back Yes Yes Yes Blood Gas Notified Whom jorge Smallwood Blood Gas Notified Time 17:12:30 19:21:29 23:04:54 01/05/25 01/05/25 01:36 09:19 Specimen Type ART ART Sample Site L Radial L Radial pH 7.28 L 7.29 L Bicarbonate Actual 28.6 H 33.3 H Total CO2 31 35 Base Excess 2 7 H O2 Saturation 88 L 95 O2 % 30.0 40.0 ABG pCO2 61.0 H 68.9 H* ABG pO2 63 L 85 Zaid Test N/A Positive Respiration Rate 16 20 O2 Delivery Device BiPAP AVAPS Vent Mode Not entered Not entered Tidal Volume 550.0 500.0 POC PEEP 12 Crit Call To/Read Back Yes Blood Gas Notified Whom LA NENA Blood Gas Notified Time 09:21:46 Assessment and Plan . Assessment and plan: #Acute Hypercapneic Respiratory Failure #COPD exacerbation #Obesity Hypoventilation syndrome #GI bleed #Acute CHF #GABE #Hyperkalemia #DM #HTN #Chronic Back pain -Patient is high risk for needing invasive mechanical ventilation therefore closely monitoring in ICU -Continue noninvasive mechanical ventilation with current AVAPs settings -Daily ABG and CXR -repeat ABG now to reassess - decision to intubate will be based more on clinical appearance than pCO2 per se -Duonebs q6hrs -Continue Meropenam -Start on Steroids -GI consulted -SSI for DM DVT Px - SCD, no chemoprophylaxis due to GI bleed Critical Care Time:50 minutes The entirety of this encounter was done via Telemedicine Physical Exam Const General Appearance: ill appearing and patient mechanically ventilated HEENT Mouth: endotracheal tube in place and OG tube in place Eyes no scleral icterus Resp Auscultation: diminished lung sounds Subjective Subjective Dr. Roman's note reviewed. Asked to evaluate patient by staff given concerns for respiratory and airway. He is generating significantly better tidal volumes (400+) after RT placed full face mask with good fit.
[2025-01-05 15:58] LABS: Allen Test Positive; Base Excess 5 mmol/L (-2 to +2); FI02 40.0; PEEP 12; PO2 82 mmHG (75-100); RR 20; SITE L Radial; SO2 95 % (95-99)
[2025-01-05] MEDS: Dexmedetomidine 1,000 mcg in 0.9% NS 240 mL 39.8 MCG CONT INF (16:15)
--- NOTE | 2025-01-05 16:17 | PN.HOSP_ITS ---
Reason for Visit
--- NOTE | 2025-01-05 16:17 | PCM.PN.HOSP ---
Reason for Visit Chief Complaint: Shortness of breath with exertion Subjective Subjective Patient was seen and examined today, his blood gas this afternoon was improved. I suspect the patient has been hypercapnic at home, he is a heavy smoker and cannot get oxygen due to [facility] not [facility] to have oxygen because of [facility]. Nursing states that the patient has been talking to them and does not appear to be in any distress. I placed the patient back on Lasix today-I think he is fluid overloaded and he got 2 units of packed red blood cells, CBC will be rechecked tomorrow. Objective Data Objective Data Vital Signs: Vital Signs Temp Pulse Resp BP Pulse Ox O2 Del Method O2 Flow Rate 95.9 F L 66 21 H 133/58 H 98 Bi-pap 5 01/05/25 12:45 01/05/25 15:40 01/05/25 15:40 01/05/25 12:45 01/05/25 15:40 01/05/25 12:45 01/04/25 16:11 FiO2 40 01/05/25 15:40 Oxygen Flow Rate (L/min) 5 Oxygen Delivery Method Bi-pap Weight: 145 kg Body Mass Index (BMI) 41.0 Intake & Output: Intake and Output for Last 24 Hours 01/03/25 01/04/25 01/05/25 23:59 23:59 23:59 Intake Total 2200 / 2200 372.74 / 379.97 503.83 / 503.83 Output Total 0 / 0 192 / 2074 1565 / 1565 Balance 150 / -1050 -1552.26 / -1695.03 -1061.17 / -1061.17 Lab / Micro Data 01/05/25 03:57 01/05/25 03:57 Labs: Laboratory Results - last 24 hr 01/02/25 14:29: Crossmatch See Detail 01/04/25 17:27: POC Glucose 147 H 01/04/25 17:28: Ammonia 27.2 01/04/25 22:05: POC Glucose 140 H 01/05/25 03:57: WBC 7.4, RBC 2.89 L, Hgb 7.4 L, Hct 25.7 L, MCV 88.9, MCH 25.6 L, MCHC 28.8 L, RDW Std Deviation 58.1 H, RDW Coeff of Jm 18.4 H, Plt Count 203, MPV 9.7, Immature Gran % (Auto) 0.500, Neut % (Auto) 66.4, Lymph % (Auto) 16.8 L, [place] % (Auto) 13.2 H, Eos % (Auto) 2.7, Baso % (Auto) 0.4, Absolute Neuts (auto) 4.9, Absolute Lymphs (auto) 1.25, Nucleated RBC % 0, Sodium 141, Potassium 5.2 H, Chloride 106, Carbon Dioxide 27.7, Anion Gap 8, BUN 44 H, Creatinine 1.38 H, Estim Creat Clear Calc 77.77, Est GFR (MDRD) Non-Af 56 L, BUN/Creatinine Ratio 31.7 H, Glucose 141 H, Calcium 8.5, Total Bilirubin 0.54, AST 19, ALT 9, Alkaline Phosphatase 67, Total Protein 6.9, Albumin 3.0 L, Globulin 3.8, Albumin/Globulin Ratio 0.8 L 01/05/25 06:06: POC Glucose 126 H 01/05/25 12:08: POC Glucose 103 Micro: Microbiology 01/02/25 14:32 Stool Stool Occult Blood (SY[place]NEY) - Final Occult Blood Positive ABG Data ABG results: ABG 01/04/25 01/04/25 01/04/25 17:10 19:18 23:03 Specimen Type ART ART ART Sample Site R Radial L Radial R Radial pH 7.22 L 7.24 L 7.24 L Bicarbonate Actual 31.0 H 31.5 H 31.7 H Total CO2 33 34 34 Base Excess 3 H 4 H 4 H O2 Saturation 83 L 97 96 O2 % 4.0 40.0 40.0 ABG pCO2 76.1 H* 73.8 H* 73.9 H* ABG pO2 58 L 116 H 103 H Zaid Test Positive N/A N/A Respiration Rate 14 16 O2 Delivery Device Cannula BiPAP BiPAP Vent Mode Not entered Not entered Not entered Tidal Volume 500.0 550.0 POC PEEP 12 12 Crit Call To/Read Back Yes Yes Yes Blood Gas Notified Whom jorge Smallwood Blood Gas Notified Time 17:12:30 19:21:29 23:04:54 01/05/25 01/05/25 01/05/25 01:36 09:19 15:54 Specimen Type ART ART ART Sample Site L Radial L Radial L Radial pH 7.28 L 7.29 L 7.32 L Bicarbonate Actual 28.6 H 33.3 H 31.4 H Total CO2 31 35 33 Base Excess 2 7 H 5 H O2 Saturation 88 L 95 95 O2 % 30.0 40.0 40.0 ABG pCO2 61.0 H 68.9 H* 60.9 H ABG pO2 63 L 85 82 Zaid Test N/A Positive Positive Respiration Rate 16 20 20 O2 Delivery Device BiPAP AVAPS BiPAP Vent Mode Not entered Not entered Not entered Tidal Volume 550.0 500.0 600.0 POC PEEP 12 12 Crit Call To/Read Back Yes Blood Gas Notified Whom LA NENA Blood Gas Notified Time 09:21:46 Physical Exam Narrative no apparent distress Constitutional Narrative: Patient has class III obesity, patient is alert and follows commands General Appearance: well developed HEENT normocephalic, head/scalp atraumatic and moist oral mucous membranes Eyes PERRL, EOMs intact bilaterally and conjunctivae normal Neck supple, no JVD, thyroid normal and no carotid bruits General: trachea midline Resp no retractions, no use of accessory muscles and clear to auscultation bilaterally Resp Narrative: Patient appears to have tachypnea, he is tolerating BiPAP well. Auscultation: Negative for rales, rhonchi or wheezes Cardio regular rate, regular rhythm, S1 normal heart sound, S2 normal heart sound, no murmurs, no rub and no gallops GI normal to inspection, nondistended, normoactive bowel sounds, soft to palpation, non-tender and non-distended Extremity no clubbing, cyanosis or edema Neuro CN's II-XII intact bilaterally and no focal motor deficits Neuro Narrative: Patient is alert and follows commands Psych Narrative: Patient is alert Assessment & Plan Assessment/Plan (1) Anemia: PLAN: Plan 1. Severe anemia-unknown whether this is chronic or acute-requiring blood transfusion, believed to be secondary to undiagnosed GI bleed-patient will undergo endoscopy when stable, he remains on IV Protonix, patient had transfusion of 2 units of packed red blood cells today, pulmonary medicine recommended patient's hemoglobin be stabilized above 8. CBC will be rechecked tomorrow #2 blood loss anemia from gastrointestinal source-unknown upper versus lower and unknown timeframe-patient remains on a Protonix drip at this time, he will undergo endoscopy when medically stable #3 hyperkalemia-probably secondary to lisinopril-patient's potassium is normal today #4 type 2 diabetes-patient is on sliding scale insulin fingerstick blood sugars #5 class III obesity-complicates care, management, recovery, and prognosis #6 chronic obstructive lung disease-patient is a current smoker, he does not use oxygen at home because the [facility] will not provide it because he continues to smoke, patient is on as needed albuterol treatments, DuoNeb treatments, I have elected to stop his budesonide treatments because telemetry pulmonology is recommended IV corticosteroids-they also recommended concomitant budesonide treatments but I do not feel this is appropriate so I am not going to continue them. #7 Acute combined respiratory failure-patient remains on BiPAP, chest x-ray will be obtained tomorrow, I adjust the patient's CPAP today which improved his pCO2. #8 metabolic encephalopathy-secondary to hypercapnia and hypoxia #9 leukocytosis-his white blood cell count is normal today, I cannot explain the drastic change overnight. CBC will be monitored #10 acute diastolic CHF-echocardiogram will be obtained tomorrow, patient will have a repeat chest x-ray Total clinical time spent by myself addressing the patient's medical issues, reviewing all of his data, and collaborating with patient's care team: 50 minutes Charges/Coding Visit Charges Inpatient E&M: [id number] [facility] Hosp L3
[2025-01-05] MEDS: 0.9% Normal Saline (250mL Bag) 250 ML 15 ML IV (22:02)
[2025-01-06] VITALS (35 sets, daily range): BP systolic 113–164; BP diastolic 45–95; PULSE 66–142; RESP 16–38; TEMP 36.1–37.6; O2SAT 91–100; BMI 40.1
[2025-01-06 03:22] LABS: Hematocrit 32.7 % (40-54); Hemoglobin 10.0 g/dL (13.0-16.5); Immature Granulocytes Count 0.040 X10^3/uL (0.0-0.0); Mean Corp Hgb Conc 30.6 g/dL (32-36); Mean Corpuscular Volume 86.5 fL (80-94); Mean Platelet Vol. 9.6 fl (6.2-12.0); NRBC Flagged by Analyzer 0.3 % (0-5); POSITIVE DIFFERENTIAL YES; Platelet Count 223 K/mm3 (150-450); RBC Distribution Width CV 17.9 % (11.6-14.6); RBC Distribution Width SD 55.6 fl (35.1-43.9); Red Blood Count 3.78 M/mm3 (4.6-6.2); White Blood Count 7.8 K/mm3 (4.4-11.0)
[2025-01-06 03:45] LABS: Anion Gap 13 (5-15); BUN 45 mg/dL (4-19); BUN/Creat Ratio 35.2 RATIO (10-20); Calcium,Total 8.7 mg/dL (7.6-11.0); Carbon Dioxide 25.4 mmol/L (21.0-32.0); Chloride 105 mmol/L (98-108); Estimated Creatinine Clearance 83.43 ml/min (50-250); Glucose 152 mg/dL (70-99); Potassium 4.5 mmol/L (3.3-5.1)
--- NOTE | 2025-01-06 04:45 | RAD_ITS ---
PROCEDURE: RAD/Chest 1 View (Portable)
[2025-01-06] MEDS: Meropenem 1 GM in 0.9% Normal Saline (100mL MB+) 100 ML IV ×3 (05:52→20:38)
[2025-01-06 07:20] LABS: Base Excess 3 mmol/L (-2 to +2); Comment AVAPS; FI02 30.0; PEEP 12; PO2 99 mmHG (75-100); SITE R Radial; SO2 98 % (95-99)
--- NOTE | 2025-01-06 07:34 | PCM.PN.INT ---
Assessment & Plan Assessment/Plan (1) Acute respiratory failure with hypoxia and hypercapnia: PLAN: Plan RECOMMENDATIONS: 1. Wean from AVAPS therapy to nasal cannula oxygen. Goal to maintain saturations 88 to 92%. 2. Continue scheduled bronchodilators. 3. Decrease steroids to once daily. 4. Continue empiric antibiotics. 5. The patient is to remain n.p.o., pending endoscopic evaluation by gastroenterology. 6. Continue PPI therapy. 7. Continue to monitor blood counts and transfuse if hemoglobin drops below 7 g/dL. IMPRESSIONS: 1. Acute respiratory failure with hypoxemia and hypercapnia Most likely secondary to undiagnosed obstructive lung disease, combined with obstructive sleep apnea and alveolar hypoventilation secondary to obesity. While the patient, radiographically, appears to have more of a pulmonary edema pattern, pneumonia cannot be definitively ruled out. Therefore, we will plan to continue empiric antibiotics for now along with scheduled bronchodilators. In light of his delirium, we will decrease his steroid dosing to once daily. The patient has responded appropriately to the use of noninvasive positive pressure ventilatory support with normalization of his CO2 levels. I would recommend that we continue to wean his supplemental oxygen to maintain saturations 88 to 92%. PAP therapy should be utilized with naps and nightly. The patient should ultimately follow-up with a pulmonary provider after discharge so that baseline PFTs can be obtained and further optimization can be undertaken. 2. Acute blood loss anemia Gastroenterology is currently following. The patient has been transfused a total of 6 units of packed red blood cells. Continue to monitor blood counts and transfuse if hemoglobin drops below 7 g/dL. Continue PPI therapy. Tentative plans for endoscopic evaluation later today. 3. Heart failure with preserved ejection fraction Continue ongoing diuresis, as tolerated by hemodynamics and renal function. 4. Morbid obesity/history of diabetes mellitus/obstructive sleep apnea/hyperlipidemia/neuropathy Complicates care, management, recovery and prognosis. Continue supportive care as noted above. The patient is to remain n.p.o. for now. This note was generated with [employer] dictation software. It may contain incorrect words, spelling, and punctuation that were not noted in checking the note before signing. Subjective Subjective The patient was seen and examined at the bedside this morning. Events from the last 24 hours have been reviewed. The patient is currently afebrile, hemodynamically stable and maintaining appropriate oxygen saturations on 4 L/min via nasal cannula. The patient's hypercapnia has resolved after instituting AVAPS therapy. The patient tolerated PAP therapy overnight. He is agitated this morning about his n.p.o. status and is requesting to be allowed to eat. The patient is documented to be overall net -1.7 L for the hospitalization. The patient did confirm that he does not utilize any form of nocturnal PAP therapy at his baseline. Laboratory evaluation was notable for a white blood cell count of 7800. Hemoglobin and platelet count are stable. Arterial blood gas this morning was notable for a pH of 7.47 with a pCO2 of 36 and pO2 of 99. Chemistry profile was notable for a creatinine of 1.27. The patient has been transfused a total of 6 units of packed red blood cells. I did speak personally with Dr. Santamaria of gastroenterology this morning, who indicated that he will place the patient on the schedule for endoscopic evaluation later today. Objective Data Objective Data The patient's most recent lab work, culture data and imaging studies have all been personally reviewed. Surface echocardiogram was notable for mild concentric LVH with an ejection fraction of 60% and stage I diastolic dysfunction. Lower extremity Doppler study was negative for DVT. Stool for occult blood was positive on January 02. Blood cultures are pending. Vital Signs: Vital Signs Temp Pulse Resp BP Pulse Ox O2 Del Method O2 Flow Rate 99.4 F H 88 26 H 139/45 H 98 Bi-pap 6 01/06/25 07:00 01/06/25 07:00 01/06/25 07:00 01/06/25 07:00 01/06/25 07:00 01/06/25 07:00 01/06/25 00:00 FiO2 30 01/06/25 07:00 Oxygen Flow Rate (L/min) 6 Oxygen Delivery Method Bi-pap Weight: 312 lb 2.793 oz Body Mass Index (BMI) 40.1 Intake & Output: Intake and Output for Last 24 Hours 01/04/25 01/05/25 01/06/25 23:59 23:59 23:59 Intake Total 372.74 / 379.97 1793.55 / 1793.55 100 / 100 Output Total 1924 / 2074 3365 / 3365 100 / 100 Balance -1552.26 / -1695.03 -1571.45 / -1571.45 0 / 0 Lab / Micro Data Attestation: I reviewed the patient's lab results. 01/06/25 03:15 01/06/25 03:15 Labs: Laboratory Results - last 24 hr 01/02/25 14:29: Crossmatch See Detail 01/05/25 12:08: POC Glucose 103 01/05/25 18:06: POC Glucose 111 H 01/05/25 23:47: POC Glucose 142 H 01/06/25 03:15: WBC 7.8, RBC 3.78 L, Hgb 10.0 L, Hct 32.7 L, MCV 86.5, MCH 26.5 L, MCHC 30.6 L D, RDW Std Deviation 55.6 H, RDW Coeff of Jm 17.9 H, Plt Count 223, MPV 9.6, Immature Gran % (Auto) 0.500, Neut % (Auto) 93.8 H, Lymph % (Auto) 4.4 L, [place] % (Auto) 1.2, Eos % (Auto) 0.0, Baso % (Auto) 0.1, Absolute Neuts (auto) 7.3, Absolute Lymphs (auto) 0.34 L, Nucleated RBC % 0.3, Sodium 143, Potassium 4.5, Chloride 105, Carbon Dioxide 25.4, Anion Gap 13, BUN 45 H, Creatinine 1.27 H, Estim Creat Clear Calc 83.43, Est GFR (MDRD) Non-Af 62, BUN/Creatinine Ratio 35.2 H, Glucose 152 H, Calcium 8.7 01/06/25 06:00: POC Glucose 123 H Micro: Microbiology 01/02/25 14:32 Stool Stool Occult Blood ([place]) - Final Occult Blood Positive ABG Data ABG results: ABG 01/05/25 01/05/25 01/06/25 09:19 15:54 07:16 Specimen Type ART ART ART Sample Site L Radial L Radial R Radial pH 7.29 L 7.32 L 7.47 H Bicarbonate Actual 33.3 H 31.4 H 26.6 H Total CO2 35 33 28 Base Excess 7 H 5 H 3 H O2 Saturation 95 95 98 O2 % 40.0 40.0 30.0 ABG pCO2 68.9 H* 60.9 H 36.6 ABG pO2 85 82 99 Zaid Test Positive Positive Respiration Rate 20 20 O2 Delivery Device AVAPS BiPAP BiPAP Vent Mode Not entered Not entered BiLevel Tidal Volume 500.0 600.0 POC PEEP 12 12 Crit Call To/Read Back Yes Blood Gas Notified Whom LA NENA Blood Gas Notified Time 09:21:46 Clinical Comments AVAPS Radiography Diagnostic Testing: Radiology Impression Venous Doppler Study 01/02/25 16:36 Interpretation Summary Deep veins of the lower extremities are bilaterally patent and compressible segmentally. There is no evidence of deep vein thrombosis on either side. Valvular competence appears intact within the proximal deep venous systems bilaterally. The great saphenous veins appear bilaterally patent and compressible segmentally. Ordering Physician: Keyur Camacho Referring Physician: [facility] Performed By: Dionne Basilio, RDCS, RVT Chest X-Ray 01/06/25 04:45 IMPRESSION: There is cardiomegaly with central vascular congestion. There is patchy consolidation in the right and left perihilar region and right and lower lung, similar to the prior. There is a component of a moderate right pleural effusion, slightly improved. Reading Location: [facility] Physical Exam Const alert Constitutional Narrative: The patient is still confused and audibly yelling. General Appearance: cooperative HEENT normocephalic and head/scalp atraumatic Eyes PERRL, EOMs intact bilaterally and conjunctivae normal Neck supple General: trachea midline Chest inspection of chest normal Resp normal respiratory effort Auscultation: wheezes and diminished lung sounds Cardio regular rate and regular rhythm GI normal to inspection, nondistended, normoactive bowel sounds Extremity General Extremity: Negative for clubbing Skin Skin Narrative: Sacral decubitus ulcer, present on admission Neuro CN's II-XII intact bilaterally and moves all extremities Psych Activity / Motor Behavior: restless Charges/Coding Visit Charges Inpatient E&M: [id number] Subs Hosp L3
[2025-01-06] MEDS: Nicotine (PBKC) 21 MG Patch TD (08:44)
[2025-01-06] MEDS: Pantoprazole Sodium 40 MG in 0.9% Normal Saline (100mL MB+) 100 ML 330 MG IV ×2 (08:45→20:10)
[2025-01-06] MEDS: Ketoconazole Cream 1 APPLIC TOPICAL (08:49)
[2025-01-06] MEDS: 0.9% Saline Lock 10 ML Syringe IV ×2 (08:52→20:09)
--- NOTE | 2025-01-06 09:35 | WOUNDNOTE ---
wound photo: sacrum/buttocks
[2025-01-06] MEDS: Lactated Ringers 1,000 ML 15 ML IV (11:02)
--- NOTE | 2025-01-06 11:08 | PCM.PRE.AN2 ---
ASA Classification* ASA Classification ASA Classification: 3 Assessment & Plan Anesthesia* Anesthesia Assessment Anesthesia Assessment: Discussed sedation and/or anesthesia options, risks, benefits, and alternatives with patient/parents/legal guardian/POA. Questions invited. The patient/parents/legal guardian/POA seems to understand and agrees to proceed with anesthesia plan. Reviewed the physical assessment, medical history, allergy history and patient home medications list prior to surgery/procedure/anesthetic and documented any changes. Performed airway and anesthesia risk assessments. Anesthesia Type Anesthesia Type: MAC Anesthesia Focused Assessment* Temperature: 99.6 F Pulse Rate: 142 Blood Pressure: 142/57 Respiratory Rate: 24 Pulse Ox: 95 Oxygen Flow Rate (L/min): 2 Fraction of Inspired Oxygen (FIO2): 6 Airway Assessment Mouth opens: >3 cm Mallampati Score: II Labs Anesthesia Preop lab: CBC WBC, (4.4-11.0) 7.8 K/mm3 Today, 03:15 RBC, (4.6-6.2) 3.78 M/mm3 L Today, 03:15 Hgb, (13.0-16.5) 10.0 g/dL L Today, 03:15 Hct, (40-54) 32.7 % L Today, 03:15 Plt Count, (150-450) 223 K/mm3 Today, 03:15 CHEMISTRY Potassium, (3.3-5.1) 4.5 mmol/L Today, 03:15 Sodium, (133-145) 143 mmol/L Today, 03:15 Magnesium, (1.6-2.6) 1.5 mg/dL L 05/21/17, 06:00 Phosphorus, (2.5-4.9) 2.5 mg/dL 18, 06:00 BUN, (4-19) 45 mg/dL H Today, 03:15 Creatinine, (0.70-1.20) 1.27 mg/dL H Today, 03:15 Glucose, (70-99) 152 mg/dL H Today, 03:15 POC Glucose, (74-106) 123 mg/dL H Today, 06:00 COAG PT, (11.7-14.9) 14.1 SECONDS 01/03/25, 07:43 Pre-Assessment Diagnosis/Proposed Procedure Planned Operative Procedure(s): EGD Anesthesia History 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 When Was Last Pacemaker Check QUESTION #4 FULL TEXT: You/Your Family Experience fever (hyperthermia) with Anesthesia Last Oral Intake Last Oral intake: Last Oral Intake NPO since 00:00 01/03/25 07:57 Meds taken in AM with sips of water? Meds patient instructed to take am of surgery PONV PONV - securities supervisor: PONV - securities supervisor Female HX of Motion Sickness HX of N/V After Surgery Non-Smoker Duration of Surgery greater than 60 minutes Number of Risk Factors PONV Score Height & Weight Height & Weight: Anesthesia: Height & Weight Height 6 ft 2 in 01/06/25 10:03 Weight: 141.6 kg 01/06/25 10:03 Body Mass Index (BMI) 40.1 01/06/25 03:18 Respiratory Assessment Respiratory Assessment - securities supervisor: Respiratory Tract Infection Hx - securities supervisor Hx Respiratory Tract Infection STOP Sleep Apnea STOP Sleep Apnea - securities supervisor: STOP Sleep Apnea - securities supervisor Hx Hypertension No 01/05/25 11:49 Hx Sleep Apnea No 01/02/25 18:18 CPAP BIPAP Do you snore loudly (louder No 01/02/25 18:18 than talking or can be heard Do you often feel tired/ No 01/02/25 18:18 fatigued/ sleepy during daytime? Has anyone observed you stop No 01/02/25 18:18 breathing during sleep? STOP Results Negative 01/02/25 18:18 QUESTION #5 FULL TEXT : Do you snore loudly (louder than talking or can be heard through closed doors)? 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 Specify any problems Hx of Preganancy in last 3 N/A 01/02/25 18:18 Months Nurse Filling Out Transfusion RKARPER 01/02/25 18:18 & Questions: Date: 01/02/25 01/02/25 18:18 Time: 18:20 01/02/25 18:18 Patient unable to answer at this time (ie. confused, unrespo /Reproduction History /Reproductive History - securities supervisor: /Reproductive Hx- securities supervisor Hx Now Gestational Age (in weeks): EDC: Hx Hx Para Hx Section SAB Active Medications Active Medications: Current Medications Generic Name Dose Route Start Last Admin Trade Name Freq PRN Reason Stop Dose Admin Albuterol Sulfate 2.5 mg 01/02/25 18:18 01/05/25 06:50 Albuterol 2.5 Mg/3 Ml Vial.Neb. INHALATION 2.5 mg Q6H PRN Administration shortness of breath or wheezing Albuterol/Ipratropium 3 ml 01/04/25 17:45 01/06/25 06:55 Ipratropium/Albuterol Sulfate 3 Ml Ampul.Neb INHALATION 3 ml Q6H.RT WOLF Administration Furosemide 40 mg 01/04/25 17:20 01/06/25 08:43 Furosemide 40 Mg/4 Ml Vial IV 40 mg BIDLX WOLF Administration Protocol Glucagon 1 mg 01/02/25 18:07 Glucagon 1 Mg/Ml Syringe IM X1 PRN Hypoglycemia Protocol Dextrose 250 mls @ 0 mls/hr 01/02/25 18:07 Dextrose 10%-Water IV .Q0M PRN HYPOGLYCEMIA Protocol As Directed Pantoprazole Sodium 40 mg/ 100 mls @ 330 mls/hr 01/02/25 18:07 01/06/25 09:13 Sodium Chloride IV Infused Q12 WOLF Infusion Meropenem 1 gm/ Sodium 100 mls @ 33 mls/hr 01/04/25 22:00 01/06/25 08:55 Chloride IV Infused Q8 WOLF Infusion Sodium Chloride 250 mls @ 15 mls/hr 01/04/25 21:23 01/05/25 22:02 IV 15 mls/hr .[id number] PRN Administration Saline Flush Sodium Chloride 250 mls @ 15 mls/hr 01/04/25 21:23 01/05/25 14:14 IV Infused .[id number] PRN Infusion Additional IVPB Infusion Lactated Ringer's 1,000 mls @ 15 mls/hr 01/06/25 11:00 01/06/25 11:02 IV 15 mls/hr .Q48H WOLF Administration Insulin Human Lispro 0 unit 01/05/25 12:00 01/06/25 06:01 Insulin Lispro 100 Unit/Ml Insuln.Pen SC Not Given Q6 [facility] Protocol Nicotine 21 mg 01/03/25 16:40 01/06/25 08:44 Nicotine (Pbkc) 21 Mg Patch TD 21 mg DAILY WOLF Administration Prednisone 40 mg 01/07/25 08:00 Prednisone 20 Mg Tablet PO BREAKFAST WOLF Sodium Chloride 10 - 40 ml 01/04/25 21:23 01/06/25 08:52 0.9% Saline Lock 10 Ml Syringe IV 10 ml UD PRN Administration SALINE FLUSH PFSH Medical History DMII (diabetes mellitus, type 2) Severe sepsis Cellulitis HTN (hypertension) Knee arthropathy Medical History no medical history Home Medications ?Medication ?Instructions ?Recorded ?Last Taken ?Type aspirin 81 mg chewable tablet 81 mg PO DAILY 05/20/17 Unknown History atorvastatin 40 mg tablet 40 mg PO QHS 05/20/17 Unknown History cholecalciferol (vitamin D3) 125 5,000 unit PO DAILY 05/20/17 01/02/25 History mcg (5,000 unit) capsule gabapentin 300 mg capsule 600 mg PO TID 05/20/17 01/02/25 History (Neurontin) metformin 500 mg tablet 1,000 mg PO BID 05/20/17 01/02/25 History nortriptyline 10 mg capsule 20 mg PO BID 05/20/17 01/02/25 History albuterol sulfate 2.5 mg/3 mL 2.5 mg inhalation Q6H PRN 01/02/25 01/02/25 History (0.083 %) solution for nebulization shortness of breath or wheezing cetirizine 10 mg tablet 10 mg PO DAILY PRN allergy symptoms 01/02/25 01/02/25 History diclofenac sodium 1 % topical gel 2 g topical BID ARTHRITIS 01/02/25 12/26/24 History furosemide 20 mg tablet 20 mg PO Q12H PRN LEG swelling 01/02/25 01/02/25 History ibuprofen 200 mg tablet (I-Prin) 400 mg PO Q6H PRN pain 01/02/25 01/01/25 History ketoconazole 2 % topical cream 1 applic topical BID SCROTUM AND 01/02/25 01/02/25 History GROIN lanolin alcohols-mineral 1 applic topical DAILY DRY SKIN 01/02/25 01/01/25 History oil-w.petrolatum-ceresin topical cream (Eucerin topical cream) lisinopril 30 mg tablet 30 mg PO DAILY BLOOD PRESSURE 01/02/25 01/02/25 History mometasone 220 mcg/actuation(120 2 inh inhalation BID 01/02/25 01/02/25 History doses)breath activated powder inhaler (Asmanex Twisthaler) ondansetron 4 mg disintegrating 4 mg PO Q12H PRN MODERATE NAUSEA 01/02/25 12/26/24 History tablet zinc oxide-petrolatum 20 %-51 % 1 applic topical BID 01/02/25 01/01/25 History topical paste Allergy/AdvReac Type Severity Reaction Status Date / Time Penicillins (PCN) Allergy Anaphylaxis Verified 01/02/25 13:00 shellfish derived Allergy Rash Verified 01/02/25 13:00 Family History no significant family his Surgical History H/O spinal fusion H/O laminectomy Surgical History no surgical history Social History Smoking Status: Current every day smoker tobacco type: cigarettes Review of Systems (Anesthesia) ROS Narrative System reviewed and no additional complaints, except as documented.
--- NOTE | 2025-01-06 11:46 | PCM.PN.BLA ---
Progress Note Patient's hemoglobin is up to 10 after multiple blood transfusions. His breathing is a lot better. He has been NPO. Physical Exam Const alert, oriented x3, no apparent distress and healthy appearing General Appearance: cooperative GI normal to inspection, nondistended, normoactive bowel sounds, soft to palpation, non-tender and non-distended Percussion: normal to percussion Rectal Exam: deferred Assessment & Plan Assessment/Plan (1) Anemia: PLAN: Severe Anemia:?Hemoglobin of 4.4, likely secondary to a gastrointestinal (bleed, given the positive stool occult. Sacral Ulcer:?The primary presenting complaint is pain related to this. Congestive Heart Failure Exacerbation:?Supported by an elevated BNP (1610) and bilateral peripheral edema. Hyperkalemia and Renal Insufficiency:?A new finding, unclear if acute or chronic, requiring further workup. Elevated Troponin:?Troponin of 45, which warrants further evaluation with serial measurements (delta) for possible myocardial injury or stress. Rule Out Pulmonary Embolism :?Elevated D-dimer and a risk profile that includes CHF and immobility from the sacral ulcer. However, PE is unconfirmed due to the patient's refusal of the CTA. GI Bleed:?Most likely source of anemia given the positive stool occult. Patient Refusal of CTA:?Patient is refusing a necessary diagnostic study for a potentially life-threatening condition, which has been acknowledged and documented after a discussion of the risks and benefits. Plan: Patient will undergo an upper endoscopy to evaluate his upper GI tract for signs symptoms of GI blood loss. He was explained alternatives, risk and benefits include understanding bleeding, infection, subsequent perforation, need for emergent and . He will have an ASA of 3. Visit Charges Inpatient E&M: 40710 Subs Hosp L3
--- NOTE | 2025-01-06 12:00 | EGD_PTH ---
PATIENT: NGA LARSON LOC: ICU U#:[id number] AGE/SX: 69/M ROOM: ICU03 RE01/02/[address]: Dr. Keyur Camacho DO : 1955 BED: 1 DIS: 01/08/2025 SPEC #: [id number] RECD: 01/06/25 13:40 STATUS: SOUT REQ #: [id number] MITCHELL: 01/06/25 12:[address]: Bhupinder Santamaria DEPT: SURGICAL PATHOLOGY RECD BY: Ender Robertson ENTERED: 01/06/25 14:30 SP TYPE: EGD BIOPSY OTHR DR: MD Dr. Mason Landin MD Dr. Alexander Mosteller, DO Dr. Bruce Arthur, MD Dr. Derek Brown, DO MD Dr. Yimi Sinha MD Dr. Gautam Baskaran, MD Dr. Yordanos Habtegebriel, MD Dr. Hemant Dand, MD Dr. Jose Ochoa, MD Dr. Justin Wong, MD Dr. Kimber Foust, MD Dr. Lamia Aljundi, MD Dr. Marisa Magana, MD Dr. Mark Tereletsky, MD Dr. Freddy Almaraz Dr., MD Dr. Pavan Irukulla, MD Dr. Saad Farooqi, MD Dr. Sukhdeep Dhesi, MD Dr. Parvez Beasley Dr., MD Dr. Timothy Fernstrom, DO MD Dr. Yonatan Meraz MD Heather Evans, CHEMICAL RESEARCH TECHNICIAN-C Janie Fischer, CHEMICAL RESEARCH TECHNICIAN-C Clementina Smiley, [place] [employer] Tissues: A - Duodenum, NOS Procedures: Immunohistochemical Stains Surgery Specimen Level IV HEADER OPERATION: EGD, biopsy PRE-OP DIAGNOSIS: Severe anemia, sacral ulcer, congestive heart failure exacerbation, hyperkalemia and renal insufficiency, elevated troponin, GI bleed TISSUE SUBMITTED: A- Duodenal ulcer biopsy MICROSCOPIC DIAGNOSIS A. Small intestine, duodenum, biopsy: * Small bowel mucosa with mild chronic focal active inflammation with reactive changes * The Helicobacter pylori immunostain is negative MICROSCOPIC DESCRIPTION Slides are reviewed. All matched controls reacted appropriately. These tests were developed and their performance characteristics determined by [facility]. They may not have been cleared or approved by the U.S. Food and Drug Administration.The FDA has determined that such clearance or approval is not necessary. The above immunohistochemical markers are viewed by the Pathologist. GROSS DESCRIPTION A. Received in fixative is one container labeled with the patient's name and designated Duodenal ulcer biopsy. The specimen consists of three irregular fragments of sorto tissue that measure 0.2 to 0.5 cm. The specimen is totally submitted in one cassette. VT 01/06/2025 CPT:94363,54943
--- NOTE | 2025-01-06 12:28 | PN.HOSP_ITS ---
Reason for Visit
--- NOTE | 2025-01-06 12:28 | PCM.PN.HOSP ---
Reason for Visit Chief Complaint: Shortness of breath with exertion Subjective Subjective Saw patient at bedside this morning. Patient was actively delirious and repeating nonsensical phrases. He did make eye contact with me when I spoke but would not answer questions appropriately for me. He otherwise was sitting back in the bedside chair comfortably. Objective Data Objective Data Vital Signs: Vital Signs Temp Pulse Resp BP Pulse Ox O2 Del Method O2 Flow Rate 99.6 F H 142 H 24 H 142/57 H 95 Nasal Cannula 2 01/06/25 11:08 01/06/25 11:08 01/06/25 11:08 01/06/25 11:08 01/06/25 11:08 01/06/25 10:00 01/06/25 11:08 FiO2 6 01/06/25 11:08 Oxygen Flow Rate (L/min) 2 Oxygen Delivery Method Nasal Cannula Weight: 141.6 kg Body Mass Index (BMI) 40.1 Intake & Output: Intake and Output for Last 24 Hours 01/04/25 01/05/25 01/06/25 23:59 23:59 23:59 Intake Total 372.74 / 379.97 1793.55 / 1793.55 300 / 300 Output Total 1925 / 2075 3365 / 3365 100 / 100 Balance -1552.26 / -1695.03 -1571.45 / -1571.45 200 / 200 Lab / Micro Data 01/06/25 03:15 01/06/25 03:15 Labs: Laboratory Results - last 24 hr 01/02/25 14:29: Crossmatch See Detail 01/05/25 12:08: POC Glucose 103 01/05/25 18:06: POC Glucose 111 H 01/05/25 23:47: POC Glucose 142 H 01/06/25 03:15: WBC 7.8, RBC 3.78 L, Hgb 10.0 L, Hct 32.7 L, MCV 86.5, MCH 26.5 L, MCHC 30.6 L D, RDW Std Deviation 55.6 H, RDW Coeff of Jm 17.9 H, Plt Count 223, MPV 9.6, Immature Gran % (Auto) 0.500, Neut % (Auto) 93.8 H, Lymph % (Auto) 4.4 L, Coffee % (Auto) 1.2, Eos % (Auto) 0.0, Baso % (Auto) 0.1, Absolute Neuts (auto) 7.3, Absolute Lymphs (auto) 0.34 L, Nucleated RBC % 0.3, Sodium 143, Potassium 4.5, Chloride 105, Carbon Dioxide 25.4, Anion Gap 13, BUN 45 H, Creatinine 1.27 H, Estim Creat Clear Calc 83.43, Est GFR (MDRD) Non-Af 62, BUN/Creatinine Ratio 35.2 H, Glucose 152 H, Calcium 8.7 01/06/25 06:00: POC Glucose 123 H Micro: Microbiology 01/02/25 14:32 Stool Stool Occult Blood ([place]) - Final Occult Blood Positive ABG Data ABG results: ABG 01/05/25 01/06/25 15:54 07:16 Specimen Type ART ART Sample Site L Radial R Radial pH 7.32 L 7.47 H Bicarbonate Actual 31.4 H 26.6 H Total CO2 33 28 Base Excess 5 H 3 H O2 Saturation 95 98 O2 % 40.0 30.0 ABG pCO2 60.9 H 36.6 ABG pO2 82 99 Zaid Test Positive Respiration Rate 20 O2 Delivery Device BiPAP BiPAP Vent Mode Not entered BiLevel Tidal Volume 600.0 POC PEEP 12 12 Clinical Comments AVAPS Radiography Diagnostic Testing: Radiology Impression Venous Doppler Study 01/02/25 16:36 Interpretation Summary Deep veins of the lower extremities are bilaterally patent and compressible segmentally. There is no evidence of deep vein thrombosis on either side. Valvular competence appears intact within the proximal deep venous systems bilaterally. The great saphenous veins appear bilaterally patent and compressible segmentally. Ordering Physician: Keyur Camacho Referring Physician: [facility] Performed By: Dionne Basilio, OPAL, RVT Chest X-Ray 01/06/25 04:45 IMPRESSION: There is cardiomegaly with central vascular congestion. There is patchy consolidation in the right and left perihilar region and right and lower lung, similar to the prior. There is a component of a moderate right pleural effusion, slightly improved. Reading [facility] Physical Exam Const alert and no apparent distress Constitutional Narrative: Elderly male, class III obesity, alert but confused and delirious, repeating nonsensical phrases, otherwise making eye contact with me with speaking but not answering questions appropriately, sitting back comfortably in bedside chair. General Appearance: cooperative and comfortable Orientation / Consciousness: confused and disoriented HEENT normocephalic, head/scalp atraumatic, hearing grossly normal bilaterally, nasal mucous membranes and turbinates normal and moist oral mucous membranes Eyes PERRL, EOMs intact bilaterally and conjunctivae normal Neck full ROM Chest inspection of chest normal Resp normal respiratory effort, normal air movement, no use of accessory muscles and clear to auscultation bilaterally Cardio regular rate, regular rhythm, no murmurs and peripheral pulses 2+ throughout GI normal to inspection, nondistended, normoactive bowel sounds, soft to palpation, non-tender and non-distended Back/Spine normal ROM Extremity normal to inspection, full ROM and no pedal edema Extremity Narrative: +1-2 nonpitting lower extremity swelling noted bilaterally. Mild chronic venous stasis changes noted bilaterally. Skin no rashes or lesions noted Neuro moves all extremities and no focal motor deficits Assessment & Plan Assessment/Plan (1) Anemia: PLAN: Plan Patient is a 69-year-old male who presented to [facility] ED on 01/02/2025 with shortness of breath with exertion. 1. Acute blood loss anemia secondary to upper GI bleed ? GI following. Hemoglobin 4.4 on admit, prior baseline around 13. Initially given units of blood and admission with repeat hemoglobin still only 6.2. Has received 6 units of blood total with good improvement in hemoglobin, most recent hemoglobin 10.0 on 01/06. EGD on 01/06 showed nonbleeding duodenal ulcers, otherwise no gross lesions in the stomach and normal esophagus. Per GI, will treat with Protonix 40 mg p.o. twice daily indefinitely and use Sucralfate tablets 1 g 4 times daily for 2 months. Continue to monitor daily CBC. 2. Acute hypoxic and hypercapnic respiratory failure ? Office Communication Professor following. Patient required transfer up to the ICU early in the admission due to worsening hypoxia and confusion. ABG showed pCO2 in the 70s and pO2 58. Patient was placed on BiPAP but given his severe claustrophobia he did not tolerate this initially, so he was moved up to the ICU and started on a Precedex drip. Per magazine editor, suspect respiratory failure was multifactorial secondary to undiagnosed obstructive lung disease, LILY, obesity hypoventilation syndrome, pulmonary edema from HFpEF is low and concern for pneumonia. Was initiated on IV steroids but became delirious on 01/06, so steroid dosing decreased to once daily. Continue IV antibiotics and scheduled DuoNebs. Continue IV Lasix as below. Weaning supplemental oxygen as able, most recently requiring 4 L nasal cannula on 01/06. Continue PAP therapy at night and with naps. 3. New onset acute HFpEF ? Chest x-ray showed interstitial edema with small to moderate right-sided pleural effusion. BNP elevated at 1400. D-dimer was elevated but CTA chest was deferred due to GABE as well as patient's reported severe claustrophobia with both MRI and CT scans. Echo shows EF 60%, stage I diastolic dysfunction, mild concentric LV hypertrophy, no other concerning findings. Bilateral lower extremity duplex ultrasound negative. Suspect volume overload multifactorial from severe anemia as above and uncontrolled hypertension. Given 6 units of blood since admission which contributed to worsening volume overload. Continue IV Lasix 40 mg twice daily for now, monitor daily BMP and urine output. 4. Delirium ? Office Communication Professor following as above. Patient with new onset delirium noted on the morning of 01/06. Patient was alert but repeating nonsensical phrases and not answering questions appropriately. Suspect IV steroids could be contributing to this, dosing decreased as above. Continue to monitor closely. Delirium precautions in place. 5. GABE with mild hyperkalemia, improving ? Creatinine 1.66, potassium 5.3 on admit. No EKG changes of hyperkalemia noted. Baseline creatinine appears to be around 1.1. Suspect primarily prerenal etiology due to severe anemia as above though may have some degree of cardiorenal syndrome given CHF exacerbation as above. Improving with IV diuresis, most recent creatinine 1.27 on 01/06. Continue to monitor daily BMP and urine output. 6. Acute on chronic debility ? PT/OT/case management following. Patient lives at home with his and son. Reports having a very sedentary lifestyle and spends most time in his chair. Activity has been even more limited recently due to shortness of breath with exertion. Appreciate therapy recommendations. 7. Sacral ulcer ? Patient's family reported concern for developing sacral ulcer. Evaluated in the ED and appears to be at worst a stage II sacral ulcer with no open wound noted. No need for wound care consult at this time. Will use frequent turns and pressure offloading while inpatient. Chronic medical conditions: ? Class III obesity: BMI 41 on admit. Complicates hospital course and care. ? Hypertension: Normotensive on admit. Holding home lisinopril. ? Chronic low back pain: Stable. Continue home nortriptyline. ? Type 2 diabetes mellitus with neuropathy: Glucose 149 on admit. A1c 6.7%. Will treat with sliding scale insulin with meals while inpatient, adjust as needed. Hold home metformin. Continue home gabapentin. DVT prophylaxis: Lovenox CODE STATUS: Full code, verified Expected disposition: TBD Total clinical time spent by myself addressing the patient's medical issues, reviewing all the data, and collaborating with patient's care team: 38 minutes. Charges/Coding Visit Charges Inpatient E&M: 48624 Subs Hosp L2
--- NOTE | 2025-01-06 12:33 | NURSING ---
WASTED 4.75MG WITH Sadia MORENO RN. PER DR VÁSQUEZ.
--- NOTE | 2025-01-06 12:56 | OP.EGD_ITS ---
Patient Name: Eduardo Barrera
--- NOTE | 2025-01-06 13:14 | POSTOP.ANE_ITS ---
Anesthesia: Postop Eval I
--- NOTE | 2025-01-06 13:14 | PCM.POST.ANE ---
Anesthesia: Postop Eval I Current Vital Signs Temperature: 97 F Pulse Rate: 92 Blood Pressure: 138/67 Respiratory Rate: 16 Pulse Ox: 92 Oxygen Delivery Method: Nasal Cannula Oxygen Flow Rate (L/min): 4 Assessment Airway patent: Yes Spontaneous unlabored respirations: Yes Mental status: Awake nausea: No Vomiting: No Anesthesia Complication: No Fluid Hydration Crystalloid volume administer (ml): 200 Total IV fluid infused: 200 Progress Note Anesthesia document: Postop Eval 1 completed: Yes
--- NOTE | 2025-01-06 13:29 | POSTOPAN2_ITS ---
Anesthesia Postop Eval I Sum
--- NOTE | 2025-01-06 13:29 | PCM.POSTANE2 ---
Anesthesia Postop Eval I Sum Postop Eval Completion status Anesthesia document: Postop Eval 1 completed: Yes Anesthesia Postop Eval I Summary Anesthesia Postop Eval I Summary: Anesthesia Postop Eval I: Assessment Summary Airway patent Yes 01/06/25 13:16 [email or web address] Spontaneous unlabored Yes 01/06/25 13:16 [email or web address] respirations Mental status Awake 01/06/25 13:16 [email or web address] nausea No 01/06/25 13:16 [email or web address] Vomiting No 01/06/25 13:16 [email or web address] Anesthesia Postop Eval I: Fluid Summary Crystalloid volume administer 200 01/06/25 13:16 [email or web address] (ml) Colloids volume administered ( ml) Blood Product volume administered (ml) Total IV fluid infused 200 01/06/25 13:16 [email or web address] Anesthesia Postop Eval I: Summary Notes Anesthesia Complication No 01/06/25 13:16 [email or web address] Anesthesia Complication Comment: Post-operative progress note Anesthesia: Postop Eval II Evaluation Mental status: Awake Pain Level: 0 nausea: No Vomiting: No Progress Note Post-operative progress note: returned directly to ICU from endo suite Complications Anesthesia Complication: No
[2025-01-06 15:09] LABS: Folate, Hemolysate Test 383.0 ng/mL (Not Estab.); Folate, RBC (Hct) Test 21.2 % (37.5-51.0); Folates, RBC Test 1807 ng/mL (>498)
[2025-01-07] VITALS (21 sets, daily range): BP systolic 137–165; BP diastolic 61–92; PULSE 74–100; RESP 10–30; TEMP 36.4–37.3; O2SAT 30–99; BMI 41.1
[2025-01-07 04:31] LABS: Hematocrit 31.1 % (40-54); Hemoglobin 9.5 g/dL (13.0-16.5); Mean Corp Hgb Conc 30.5 g/dL (32-36); Mean Corpuscular Volume 86.6 fL (80-94); Mean Platelet Vol. 9.2 fl (6.2-12.0); Platelet Count 232 K/mm3 (150-450); RBC Distribution Width CV 18.9 % (11.6-14.6); RBC Distribution Width SD 57.1 fl (35.1-43.9); Red Blood Count 3.59 M/mm3 (4.6-6.2); White Blood Count 9.2 K/mm3 (4.4-11.0)
[2025-01-07] MEDS: 0.9% Saline Lock 10 ML Syringe IV (05:07)
[2025-01-07] MEDS: Meropenem 1 GM in 0.9% Normal Saline (100mL MB+) 100 ML IV ×3 (05:09→22:16)
[2025-01-07 05:16] LABS: Anion Gap 9 (5-15); BUN 40 mg/dL (4-19); BUN/Creat Ratio 35.6 RATIO (10-20); Calcium,Total 9.2 mg/dL (7.6-11.0); Carbon Dioxide 31.0 mmol/L (21.0-32.0); Chloride 101 mmol/L (98-108); Estimated Creatinine Clearance 94.61 ml/min (50-250); Glucose 116 mg/dL (70-99); Potassium 3.5 mmol/L (3.3-5.1)
--- NOTE | 2025-01-07 07:30 | PCM.PN.INT ---
Assessment & Plan Assessment/Plan (1) Acute respiratory failure with hypoxia and hypercapnia: PLAN: Plan RECOMMENDATIONS: 1. Recommend continuing AVAPS therapy with naps and nightly. 2. Continue scheduled bronchodilators. 3. Continue prednisone 40 mg daily x 5 days. 4. Continue empiric antibiotics. 5. Continue to advance diet as tolerated. 6. Continue PPI therapy. 7. Continue to monitor blood counts and transfuse if hemoglobin drops below 7 g/dL. 8. The patient is medically stable for transfer out of the intensive care unit. Will sign off from a critical care perspective. IMPRESSIONS: 1. Acute respiratory failure with hypoxemia and hypercapnia Most likely secondary to undiagnosed obstructive lung disease, combined with obstructive sleep apnea and alveolar hypoventilation secondary to obesity. While the patient, radiographically, appears to have more of a pulmonary edema pattern, pneumonia cannot be definitively ruled out. Therefore, we will plan to continue empiric antibiotics for now along with scheduled bronchodilators. The patient has been weaned to prednisone 40 mg daily, which should be continued to complete 5 days of therapy. I would recommend that we continue to utilize AVAPS therapy with naps and nightly. The patient should ultimately follow-up with a pulmonary provider after discharge so that baseline PFTs can be obtained and further optimization can be undertaken, including consideration for diagnostic polysomnogram. Perform walking oximetry study prior to consideration for discharge home. 2. Acute blood loss anemia Gastroenterology is currently following. The patient has been transfused a total of 6 units of packed red blood cells. Continue to monitor blood counts and transfuse if hemoglobin drops below 7 g/dL. Continue PPI therapy. The patient did ultimately undergo endoscopic evaluation which revealed nonbleeding duodenal ulcers. Recommend continuing to advance diet as tolerated. 3. Heart failure with preserved ejection fraction Continue ongoing diuresis, as tolerated by hemodynamics and renal function. 4. Morbid obesity/history of diabetes mellitus/obstructive sleep apnea/hyperlipidemia/neuropathy Complicates care, management, recovery and prognosis. Continue supportive care as noted above. Continue to advance diet as tolerated. Physical therapy to work with the patient. This note was generated with [employer] dictation software. It may contain incorrect words, spelling, and punctuation that were not noted in checking the note before signing. Subjective Subjective The patient was seen and examined at the bedside this morning. Events from the last 24 hours have been reviewed. The patient is currently afebrile, hemodynamically stable and maintaining appropriate oxygen saturations on room air. The patient underwent upper endoscopy yesterday, which demonstrated nonbleeding duodenal ulcers. The patient tolerated the procedure well. He has been tolerant of a full liquid diet since the endoscopic evaluation. The patient is much more oriented and conversant this morning. He is documented to be overall net -3.5 L for the hospitalization. White blood cell count is normal. Hemoglobin is stable at 9.5 g/dL. Platelet count is within normal limits. Creatinine is within normal limits. Objective Data Objective Data The patient's most recent lab work, culture data and imaging studies have all been personally reviewed. Surface echocardiogram was notable for mild concentric LVH with an ejection fraction of 60% and stage I diastolic dysfunction. Lower extremity Doppler study was negative for DVT. Stool for occult blood was positive on January 02. Blood cultures have not demonstrated any growth to date. Vital Signs: Vital Signs Temp Pulse Resp BP Pulse Ox O2 Del Method O2 Flow Rate 97.7 F L 83 26 H 158/81 H 97 Room Air 2 01/07/25 07:00 01/07/25 07:00 01/07/25 07:00 01/07/25 07:00 01/07/25 07:00 01/07/25 07:00 01/07/25 03:00 FiO2 30 01/07/25 06:00 Oxygen Flow Rate (L/min) 2 Oxygen Delivery Method Room Air Weight: 312 lb 2.793 oz Body Mass Index (BMI) 40.1 Intake & Output: Intake and Output for Last 24 Hours 01/05/25 01/06/25 01/07/25 23:59 23:59 23:59 Intake Total 1793.55 / 1793.55 1450 / 1450 Output Total 3365 / 3365 552 / 2352 2500 / 2500 Balance -1571.45 / -1571.45 898 / -902 -2500 / -2500 Lab / Micro Data Attestation: I reviewed the patient's lab results. 01/07/25 04:23 01/07/25 04:23 Labs: Laboratory Results - last 24 hr 01/02/25 14:29: Crossmatch See Detail 01/02/25 14:29: Crossmatch See Detail 01/03/25 01:34: RBC Folate Hemolysate 383.0, RBC Folate 1807, Hematocrit 21.2 L 01/06/25 13:36: POC Glucose 97 01/06/25 17:48: POC Glucose 156 H 01/06/25 23:49: POC Glucose 106 01/07/25 04:23: WBC 9.2, RBC 3.59 L, Hgb 9.5 L, Hct 31.1 L, MCV 86.6, MCH 26.5 L, MCHC 30.5 L, RDW Std Deviation 57.1 H, RDW Coeff of Jm 18.9 H, Plt Count 232, MPV 9.2, Sodium 140, Potassium 3.5, Chloride 101, Carbon Dioxide 31.0, Anion Gap 9, BUN 40 H, Creatinine 1.12, Estim Creat Clear Calc 94.61, Est GFR (MDRD) Non-Af 72, BUN/Creatinine Ratio 35.6 H, Glucose 116 H, Calcium 9.2 01/07/25 05:12: POC Glucose 109 H Micro: Microbiology 01/02/25 14:32 Stool Stool Occult Blood ([place]) - Final Occult Blood Positive ABG Data ABG results: ABG 01/05/25 01/05/25 01/06/25 09:19 15:54 07:16 Specimen Type ART ART ART Sample Site L Radial L Radial R Radial pH 7.29 L 7.32 L 7.47 H Bicarbonate Actual 33.3 H 31.4 H 26.6 H Total CO2 35 33 28 Base Excess 7 H 5 H 3 H O2 Saturation 95 95 98 O2 % 40.0 40.0 30.0 ABG pCO2 68.9 H* 60.9 H 36.6 ABG pO2 85 82 99 Zaid Test Positive Positive Respiration Rate 20 20 O2 Delivery Device AVAPS BiPAP BiPAP Vent Mode Not entered Not entered BiLevel Tidal Volume 500.0 600.0 POC PEEP 12 12 Crit Call To/Read Back Yes Blood Gas Notified Whom [facility] Blood Gas Notified Time 09:21:46 Clinical Comments AVAPS Radiography Diagnostic Testing: Radiology Impression Venous Doppler Study 01/02/25 16:36 Interpretation Summary Deep veins of the lower extremities are bilaterally patent and compressible segmentally. There is no evidence of deep vein thrombosis on either side. Valvular competence appears intact within the proximal deep venous systems bilaterally. The great saphenous veins appear bilaterally patent and compressible segmentally. Ordering Physician: Keyur Camacho Referring Physician: [facility] Performed By: Dionne Basilio, RDCS, RVT Chest X-Ray 01/06/25 04:45 IMPRESSION: There is cardiomegaly with central vascular congestion. There is patchy consolidation in the right and left perihilar region and right and lower lung, similar to the prior. There is a component of a moderate right pleural effusion, slightly improved. Reading Location: [facility] Physical Exam Const alert and no apparent distress Constitutional Narrative: Sitting in bedside recliner. General Appearance: cooperative HEENT normocephalic, head/scalp atraumatic and moist oral mucous membranes Eyes PERRL, EOMs intact bilaterally and conjunctivae normal Neck supple General: trachea midline Chest inspection of chest normal Resp normal respiratory effort Auscultation: diminished lung sounds; Negative for rales, rhonchi or wheezes Cardio regular rate and regular rhythm GI normal to inspection, nondistended, normoactive bowel sounds Extremity General Extremity: Negative for clubbing Skin Skin Narrative: Sacral decubitus ulcer, present on admission Neuro CN's II-XII intact bilaterally, moves all extremities and no focal motor deficits Psych cooperative and affect normal Charges/Coding Visit Charges Inpatient E&M: 35137 Subs Hosp L2
[2025-01-07] MEDS: Nicotine (PBKC) 21 MG Patch TD (08:51)
--- NOTE | 2025-01-07 10:24 | CASEMGMT ---
Addendum entered by Mita Estrada 01/07/25 11:51: [facility] returns call and states that they are able to accept the pt for SOC , especially if the pt were to qualify for oxygen. JAYCOB CM to the pt's room at this time and updated the pt. Pt states that he is agreeable with this date now. A verbal list of local in-network DME companies were provided to the pt at this time. Pt prefers [facility] if he were to qualify for home oxygen. Pt denies further questions or concerns at this time. TC to pt's and son and updated on tentative DC plan (DC Tomorrow with HHC and potential oxygen). Original Note: During ICU rounds, pt states that he prefers to go home once medically ready and denies wanting to go to a SNF. Collaborated with the hospitalist who reports that HH is ideal and that the pt may DC as early as tomorrow. Noted that the [facility] has [facility] as well as [facility]. OT states that the pt is at his baseline functional status. JAYCOB BRIGHT back to the pt's room at this time to discuss DC planning. Pt again denies SNF needs and states that he would like skilled HHC. Informed the pt that SN can be beneficial for the pt's wound as well. Pt states understanding and states that he would not want anyone to come out to the home until Monday at the earliest. Pt was offered a list of HHC agencies in-network with [facility]. Pt informed that [facility] also offers HHC. However, pt declines wanting to review a list of local in-network HHC agencies and states that he prefers [facility]. TC to [facility] and referral made. Awaiting return response. Pt denies further questions or concerns at this time. CM to follow for potential oxygen needs as well.
--- NOTE | 2025-01-07 11:07 | PN.HOSP_ITS ---
Reason for Visit
--- NOTE | 2025-01-07 11:07 | PCM.PN.HOSP ---
Reason for Visit Chief Complaint: Shortness of breath with exertion Subjective Subjective Saw patient at bedside this morning. Patient was alert and oriented x 3, sitting back comfortably in bedside chair in no acute distress. Mentation markedly improved from yesterday. Patient reported feeling well this morning, denied any chest pain, shortness of breath, fevers or chills. Notes that he does still feel weaker than his baseline but is much improved from on admission. No other acute concerns this morning. Objective Data Objective Data Vital Signs: Vital Signs Temp Pulse Resp BP Pulse Ox O2 Del Method O2 Flow Rate 97.9 F 98 22 H 157/75 H 95 Room Air 2 01/07/25 08:00 01/07/25 10:00 01/07/25 10:00 01/07/25 08:00 01/07/25 10:00 01/07/25 10:00 01/07/25 03:00 FiO2 30 01/07/25 06:00 Oxygen Flow Rate (L/min) 2 Oxygen Delivery Method Room Air Weight: 145.24 kg Body Mass Index (BMI) 41.1 Intake & Output: Intake and Output for Last 24 Hours 01/05/25 01/06/25 01/07/25 23:59 23:59 23:59 Intake Total 1793.55 / 1793.55 1450 / 1450 700 / 700 Output Total 3365 / 3365 552 / 2352 3545 / 3545 Balance -1571.45 / -1571.45 898 / -902 -2845 / -2845 Lab / Micro Data 01/07/25 04:23 01/07/25 04:23 Labs: Laboratory Results - last 24 hr 01/02/25 14:29: Crossmatch See Detail 01/02/25 14:29: Crossmatch See Detail 01/03/25 01:34: RBC Folate Hemolysate 383.0, RBC Folate 1807, Hematocrit 21.2 L 01/06/25 13:36: POC Glucose 97 01/06/25 17:48: POC Glucose 156 H 01/06/25 23:49: POC Glucose 106 01/07/25 04:23: WBC 9.2, RBC 3.59 L, Hgb 9.5 L, Hct 31.1 L, MCV 86.6, MCH 26.5 L, MCHC 30.5 L, RDW Std Deviation 57.1 H, RDW Coeff of Jm 18.9 H, Plt Count 232, MPV 9.2, Sodium 140, Potassium 3.5, Chloride 101, Carbon Dioxide 31.0, Anion Gap 9, BUN 40 H, Creatinine 1.12, Estim Creat Clear Calc 94.61, Est GFR (MDRD) Non-Af 72, BUN/Creatinine Ratio 35.6 H, Glucose 116 H, Calcium 9.2 01/07/25 05:12: POC Glucose 109 H 01/07/25 08:40: POC Glucose 124 H Micro: Microbiology 01/04/25 19:20 Blood Culture (Wb) - Left Hand Blood Culture - Preliminary No growth in 48 hours. 01/04/25 19:15 Blood Culture (Wb) - Anticubital Right Blood Culture - Preliminary No growth in 48 hours. 01/02/25 14:32 Stool Stool Occult Blood ([place]) - Final Occult Blood Positive Physical Exam Const alert, oriented x3 and no apparent distress Constitutional Narrative: Elderly male, class III obesity, mildly fatigued appearing but improved from admission, alert and oriented x 3, otherwise sitting back comfortably in bedside chair, conversing normally, in no acute distress. General Appearance: cooperative and comfortable HEENT normocephalic, head/scalp atraumatic, hearing grossly normal bilaterally, nasal mucous membranes and turbinates normal and moist oral mucous membranes Eyes PERRL, EOMs intact bilaterally and conjunctivae normal Neck full ROM Chest inspection of chest normal Resp normal respiratory effort and no use of accessory muscles Resp Narrative: Breathing comfortably on room air at rest. Mildly diminished breath sounds in bilateral lung bases but otherwise good air movement throughout with no wheezing noted. Improved from admission. Cardio regular rate, regular rhythm, no murmurs and peripheral pulses 2+ throughout GI normal to inspection, nondistended, normoactive bowel sounds, soft to palpation, non-tender and non-distended Back/Spine normal ROM Extremity Extremity Narrative: +1-2 nonpitting lower extremity swelling noted bilaterally, stable. Mild chronic venous stasis changes noted bilaterally. Neuro moves all extremities and no focal motor deficits Speech: speech normal Psych mental status grossly normal Assessment & Plan Assessment/Plan (1) Anemia: PLAN: Plan Patient is a 69-year-old male who presented to [facility] ED on 01/02/2025 with shortness of breath with exertion. 1. Acute blood loss anemia secondary to upper GI bleed ? GI following. Hemoglobin 4.4 on admit, prior baseline around 13. Initially given units of blood and admission with repeat hemoglobin still only 6.2. Has received 6 units of blood total with good improvement in hemoglobin, most recent hemoglobin 10.0 on 01/06. EGD on 01/06 showed nonbleeding duodenal ulcers, otherwise no gross lesions in the stomach and normal esophagus. Per GI, will treat with Protonix 40 mg p.o. twice daily indefinitely and use Sucralfate tablets 1 g 4 times daily for 2 months. Continue to monitor daily CBC. Hemoglobin remaining stable around 9-10. 2. Acute hypoxic and hypercapnic respiratory failure, improving ? Dam Attendant following. Patient required transfer up to the ICU early in the admission due to worsening hypoxia and confusion. ABG showed pCO2 in the 70s and pO2 58. Patient was placed on BiPAP but given his severe claustrophobia he did not tolerate this initially, so he was moved up to the ICU and started on a Precedex drip. Per elephant tamer, suspect respiratory failure was multifactorial secondary to undiagnosed obstructive lung disease, LILY, obesity hypoventilation syndrome, pulmonary edema from HFpEF is low and concern for pneumonia. Was initiated on IV steroids but became delirious on 01/06, so steroid dosing decreased to once daily. Continue IV antibiotics and scheduled DuoNebs. Continue IV Lasix as below. Weaned to room air at rest on 01/07. Continue PAP therapy at night and with naps. Stable for transfer to PCU on 01/07. 3. New onset acute HFpEF ? Chest x-ray showed interstitial edema with small to moderate right-sided pleural effusion. BNP elevated at 1400. D-dimer was elevated but CTA chest was deferred due to GABE as well as patient's reported severe claustrophobia with both MRI and CT scans. Echo shows EF 60%, stage I diastolic dysfunction, mild concentric LV hypertrophy, no other concerning findings. Bilateral lower extremity duplex ultrasound negative. Suspect volume overload multifactorial from severe anemia as above and uncontrolled hypertension. Given 6 units of blood since admission which contributed to worsening volume overload. Volume overload is improving; will give 2 more doses of IV Lasix today and then transition to p.o. Lasix 40 mg daily tomorrow. Continue to monitor daily BMP and urine output. 4. Delirium, resolved ? Dam Attendant following as above. Patient with new onset delirium noted on the morning of 01/06. Patient was alert but repeating nonsensical phrases and not answering questions appropriately. Suspected that IV steroids were the main contributor so they were discontinued. Patient returned to baseline for mental status standpoint on 01/07, resolved. 5. GABE with mild hyperkalemia, resolved ? Creatinine 1.66, potassium 5.3 on admit. No EKG changes of hyperkalemia noted. Baseline creatinine appears to be around 1.1. Suspect primarily prerenal etiology due to severe anemia as above though may have some degree of cardiorenal syndrome given CHF exacerbation as above. Improved with IV diuresis, back to baseline creatinine on 01/07. Monitoring daily BMP and urine output as above. 6. Acute on chronic debility ? PT/OT/case management following. Patient lives at home with his and son. Reports having a very sedentary lifestyle and spends most time in his chair. Activity has been even more limited recently due to shortness of breath with exertion. Therapy scores have been fairly poor since admission, though with mild improvement over the past few days. Patient would qualify for SNF but is adamant that he would like to return home on discharge. Will plan for home with home health care on discharge. 7. Sacral ulcer ? Patient's family reported concern for developing sacral ulcer. Evaluated in the ED and appears to be at worst a stage II sacral ulcer with no open wound noted. No need for wound care consult at this time. Will use frequent turns and pressure offloading while inpatient. Chronic medical conditions: ? Class III obesity: BMI 41 on admit. Complicates hospital course and care. ? Hypertension: Home lisinopril held on admission given GABE as above. GABE resolved and blood pressure up to the 150s systolic on 01/07, so home lisinopril restarted. ? Chronic low back pain: Stable. Continue home nortriptyline. ? Type 2 diabetes mellitus with neuropathy: Glucose 149 on admit. A1c 6.7%. Continue treatment with sliding scale insulin with meals while inpatient, adjust as needed. Hold home metformin. Continue home gabapentin. DVT prophylaxis: Lovenox CODE STATUS: Full code, verified Expected disposition: Home with home health care, 1 to 2 days Total clinical time spent by myself addressing the patient's medical issues, reviewing all the data, and collaborating with patient's care team: 37 minutes. Charges/Coding Visit Charges Inpatient E&M: 63259 Subs Hosp L2
--- NOTE | 2025-01-07 19:29 | PCM.PN.BLA ---
Progress Note 69-year-old gentleman with a history of Chronic Obstructive Pulmonary Disease presented with hypercapnic respiratory failure and severe anemia, with an initial hemoglobin of 4.4 g/dL. He received multiple red blood cell transfusions, which increased his Hgb to 10 g/dL. Today, his Hgb is 9.5 g/dL. Following the initial presentation, an upper endoscopy revealed severe ulcerative disease of the duodenum. He is not currently experiencing any abdominal pain and denies any signs of active GI bleeding. He still reports mild shortness of breath, which is an improvement from his initial presentation. He is not on home oxygen. Physical Exam Const alert, oriented x3 and no apparent distress General Appearance: cooperative and comfortable HEENT normocephalic, head/scalp atraumatic, hearing grossly normal bilaterally, nasal mucous membranes and turbinates normal and moist oral mucous membranes Eyes PERRL, EOMs intact bilaterally and conjunctivae normal Neck full ROM Chest inspection of chest normal Resp normal respiratory effort and no use of accessory muscles Resp Narrative: Breathing comfortably on room air at rest. Mildly diminished breath sounds in bilateral lung bases but otherwise good air movement throughout with no wheezing noted. Improved from admission. Cardio regular rate, regular rhythm, no murmurs and peripheral pulses 2+ throughout GI normal to inspection, nondistended, normoactive bowel sounds, soft to palpation, non-tender and non-distended Back/Spine normal ROM Extremity Extremity Narrative: +1-2 nonpitting lower extremity swelling noted bilaterally, stable. Mild chronic venous stasis changes noted bilaterally. Neuro moves all extremities and no focal motor deficits Speech: speech normal Psych mental status grossly normal Assessment & Plan Assessment/Plan (1) Acute respiratory failure with hypoxia and hypercapnia: (2) Anemia: PLAN: Assessment 1. 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 The Hgb has responded to transfusions and is now stable at 9.5 g/dL, with no signs of active bleeding. The severe anemia exacerbated his chronic respiratory issues by impairing oxygen delivery to tissues. The COPD diagnosis itself is an independent risk factor for peptic ulcer disease and bleeding. 2. Hypercapnic respiratory failure due to COPD:?The patient's underlying COPD and chronic hypercapnia were worsened by the severe anemia, which compromised his ability to compensate for poor gas exchange. Correction of the anemia has likely contributed to the improved, though still present, shortness of breath. 3. Resolving symptoms:?While the patient still has some dyspnea, the improvement from his initial presentation is likely due to the significant increase in his hemoglobin, which has enhanced his oxygen-carrying capacity. Plan Gastrointestinal: Pharmacologic:?Continue high-dose proton pump inhibitor (PPI) therapy to promote healing of the severe duodenal ulcers. An extended course is often required for severe or complicated ulcers. Monitoring:?Given the history of severe bleeding, continue close monitoring for signs of re-bleeding, though none are currently present. Monitor Hgb levels for stability. H. pylori:?Awaiting biopsies to see if there is any signs of H. pylori. Patient Education:?Educate the patient to avoid non-steroidal anti-inflammatory drugs (NSAIDs), alcohol, and smoking, as these can exacerbate ulcers and hinder healing. Pulmonary: Management:?Continue medical management for COPD. Reinforce proper breathing techniques and smoking cessation. Respiratory Support:?Being managed by primary team and pulmonary critical care Anemia: Iron Supplementation:?Initiate iron supplementation to replete body iron stores depleted by the chronic duodenal bleeding. Given the history of GI bleeding, intravenous (IV) iron may be more effective and better tolerated than oral iron. Monitoring:?Repeat iron studies and Hgb/CBC to monitor for continued resolution of the anemia. Visit Charges Inpatient E&M: 98591 Subs Hosp L3
[2025-01-07] MEDS: MELATONIN 3 MG TABLET PO (22:16)
[2025-01-08] VITALS (9 sets, daily range): BP systolic 109–157; BP diastolic 59–72; PULSE 72–98; RESP 16–20; TEMP 36.5–37; O2SAT 87–96; BMI 40.2
[2025-01-08] MEDS: Albuterol 2.5 MG/3 ML VIAL.NEB. INHALATION (02:05)
[2025-01-08 05:22] LABS: Hematocrit 29.4 % (40-54); Hemoglobin 9.1 g/dL (13.0-16.5); Mean Corp Hgb Conc 31.0 g/dL (32-36); Mean Corpuscular Volume 86.5 fL (80-94); Mean Platelet Vol. 9.3 fl (6.2-12.0); Platelet Count 224 K/mm3 (150-450); RBC Distribution Width CV 19.3 % (11.6-14.6); RBC Distribution Width SD 57.1 fl (35.1-43.9); Red Blood Count 3.40 M/mm3 (4.6-6.2); White Blood Count 9.4 K/mm3 (4.4-11.0)
[2025-01-08] MEDS: Meropenem 1 GM in 0.9% Normal Saline (100mL MB+) 100 ML IV (05:37)
[2025-01-08 05:57] LABS: Anion Gap 9 (5-15); BUN 36 mg/dL (4-19); BUN/Creat Ratio 35.4 RATIO (10-20); Calcium,Total 8.5 mg/dL (7.6-11.0); Carbon Dioxide 31.8 mmol/L (21.0-32.0); Chloride 100 mmol/L (98-108); Estimated Creatinine Clearance 104.16 ml/min (50-250); Glucose 116 mg/dL (70-99); Potassium 3.4 mmol/L (3.3-5.1)
[2025-01-08] MEDS: Nicotine (PBKC) 21 MG Patch TD (08:13)
--- NOTE | 2025-01-08 10:52 | EX.PCM.PN.GI ---
Subjective Subjective - was taking Motrin 800mg BID 4 out of 7 days a week prior to admission for chronic low back pain - reports h/o heavy alcohol consumption I like whiskey with my beer on the side would consume a 12 pack of beer and pint of whiskey daily for 45-50 years - denies any alcohol in the past 2-3 years - chronic tobacco use - 2 cups of coffee daily, no more than 3 - colon last performed 6-7 years ago with colon polyps, reports a remote colonoscopy with >15 polyps removed - denies any family h/o colon CA - resumed regular diet yesterday, c/o nausea after meals and early satiety Objective Data Objective Data EGD (01/06/2025): Normal esophagus/stomach, non-bleeding duodenal ulcers without stigmata, biopsies negative for H. pylori, mild chronic focal active inflammation. Vital Signs: Vital Signs Temp Pulse Resp BP Pulse Ox O2 Del Method O2 Flow Rate 97.7 F L 86 20 H 146/72 H 94 Nasal Cannula 3 01/08/25 05:39 01/08/25 06:48 01/08/25 06:48 01/08/25 05:39 01/08/25 06:48 01/08/25 06:48 01/08/25 06:48 FiO2 20 01/07/25 23:15 Oxygen Flow Rate (L/min) 3 Oxygen Delivery Method Nasal Cannula Weight: 313 lb 11.485 oz Body Mass Index (BMI) 40.2 Intake & Output: Intake and Output for Last 24 Hours 01/06/25 01/07/25 01/08/25 23:59 23:59 23:59 Intake Total 1450 / 1450 1480 / 1480 879 / 879 Output Total 552 / 2352 7105 / 7105 300 / 300 Balance 898 / -902 -5625 / -5625 579 / 579 Lab / Micro Data Attestation: I reviewed the patient's lab results. 01/08/25 05:15 01/08/25 05:15 Labs: Laboratory Results - last 24 hr 01/07/25 11:45: POC Glucose 199 H 01/07/25 16:43: POC Glucose 151 H 01/07/25 21:03: POC Glucose 160 H 01/08/25 05:15: WBC 9.4, RBC 3.40 L, Hgb 9.1 L, Hct 29.4 L, MCV 86.5, MCH 26.8 L, MCHC 31.0 L, RDW Std Deviation 57.1 H, RDW Coeff of Jm 19.3 H, Plt Count 224, MPV 9.3, Sodium 141, Potassium 3.4, Chloride 100, Carbon Dioxide 31.8, Anion Gap 9, BUN 36 H, Creatinine 1.02, Estim Creat Clear Calc 104.16, Est GFR (MDRD) Non-Af 80, BUN/Creatinine Ratio 35.4 H, Glucose 116 H, Calcium 8.5 Micro: Microbiology 01/04/25 19:20 Blood Culture (Wb) - Left Hand Blood Culture - Preliminary No growth in 48 hours. 01/04/25 19:15 Blood Culture (Wb) - Anticubital Right Blood Culture - Preliminary No growth in 48 hours. 01/02/25 14:32 Stool Stool Occult Blood ([place]) - Final Occult Blood Positive Physical Exam Narrative Sitting up at bedside, in no acute distress, pleasant, A&Ox3 Const Nutritional Appearance: obese Eyes PERRL Resp Resp Narrative: 86-88% on RA when conversing Effort and Inspection: actively coughing productive and strong GI normal to inspection, nondistended, normoactive bowel sounds, soft to palpation and non-tender Auscultation: normoactive bowel sounds Palpation: soft Percussion: normal to percussion Rectal Exam: deferred Assessment & Plan Assessment/Plan (1) Anemia: PLAN: Likely secondary to chronic cold GI blood loss from duodenal ulcers, compounded by prior NSAID use and possible chronic disease (COPD). Monitor hemoglobin, retake count, iron studies, B12/folate, renal function. If anemia persists, consider repeat endoscopy. Outpatient follow-up with GI for colonoscopy given history of polyps with new onset severe anemia. (2) Duodenal ulcer due to nonsteroidal anti-inflammatory drug (NSAID): PLAN: Nonbleeding duodenal ulcers, H. pylori negative, likely NSAID induced, with mild chronic duodenal inflammation. Continue pantoprazole 40 mg twice daily indefinitely and sucralfate 1 g p.o. 4 times daily for 2 months. Strict avoidance of NSAIDs/aspirin. Counseled on smoking cessation and continued avoidance of alcohol. (3) Personal history of colonic polyps: PLAN: History of multiple (>15) colonic polyps on a single exam, increased risk for colorectal neoplasia. Recommend GI follow-up upon discharge for outpatient colonoscopy. (4) Chronic low back pain: PLAN: Previously managed with NSAIDs, now contraindicated. Consider acetaminophen, topical agents, and nonpharmacologic therapies for chronic pain. PLAN: Plan 69-year-old male with COPD, chronic tobacco use, and history of heavy alcohol use (ceased 2 to 3 years ago) presented with severe anemia (initial hemoglobin 4.4, now 9.1), chronic dyspnea. He denies melena, hematemesis, chest pain, palpitations, or abdominal pain. He reports chronic low back pain, previously self managed with high-dose Motrin 800 mg twice daily, 4 out of 7 days a week. He is pleasant, sitting up in chair, and advanced to solid foods yesterday with complaints of nausea and early satiety. He denies any current home oxygen use. Last colonoscopy was performed 6 to 7 years ago (history of >15 polyps removed on single exam). No family history of colon cancer.
--- NOTE | 2025-01-08 11:40 | DCINST_ITS ---
Discharge Instructions
--- NOTE | 2025-01-08 11:40 | PCM.DC.SUM ---
Providers Date of Admission: 01/02/25 Date of Discharge: 01/08/25 Primary Care Physician: [facility] Consultations 01/02/25 18:07 Consult: Gastroenterology Routine Consulting Provider: Kunal Gastroenternaima Reason for Consult: severe anemia, concern for slow upper GIB EMERGENT Consult: No MD Notified: Yes Date Notified: 01/02/25 Time Notified: 18:21 Method of Notification: Text 01/02/25 18:33 Consult: Onc/Wound/abstract clerk Routine Comment: Reason for Consult:: large sacral/scrotal wound 01/04/25 23:43 Consult: Wet Roller / Pulmonary Medicine Routine Consulting Provider: Intensivists/Pulmonary Med Reason for Consult: hypercapnia, altered mental status EMERGENT Consult: Yes MD Notified: Yes Date Notified: 01/04/25 Time Notified: 23:43 Method of Notification: Text Reason For Visit: SEVERE ANEMIA, HYPOXIA W/ PULMONARY EDEMA Diagnosis Discharge Diagnosis (1) Acute respiratory failure with hypoxia and hypercapnia: Status: Acute Code(s): J96.01 - Acute respiratory failure with hypoxia; J96.02 - Acute respiratory failure with hypercapnia (2) Anemia: Status: Acute Code(s): D64.9 - Anemia, unspecified Medications at Discharge Home Medications atorvastatin 40 mg tablet 40 mg PO QHS 05/20/17 cholecalciferol (vitamin D3) 125 mcg (5,000 unit) capsule 5,000 unit PO DAILY 05/20/17 metformin 500 mg tablet 1,000 mg PO BID 05/20/17 nortriptyline 10 mg capsule 20 mg PO BID 05/20/17 albuterol sulfate 2.5 mg/3 mL (0.083 %) solution for nebulization 2.5 mg inhalation Q6H PRN shortness of breath or wheezing 01/02/25 cetirizine 10 mg tablet 10 mg PO DAILY PRN allergy symptoms 01/02/25 diclofenac sodium 1 % topical gel 2 g topical BID ARTHRITIS 01/02/25 ketoconazole 2 % topical cream 1 applic topical BID SCROTUM AND GROIN 01/02/25 lanolin alcohols-mineral oil-w.petrolatum-ceresin topical cream (Eucerin topical cream) 1 applic topical DAILY DRY SKIN 01/02/25 lisinopril 30 mg tablet 30 mg PO DAILY BLOOD PRESSURE 01/02/25 mometasone 220 mcg/actuation(120 doses)breath activated powder inhaler (Asmanex Twisthaler) 2 inh inhalation BID 01/02/25 ondansetron 4 mg disintegrating tablet 4 mg PO Q12H PRN MODERATE NAUSEA 01/02/25 zinc oxide-petrolatum 20 %-51 % topical paste 1 applic topical BID 01/02/25 furosemide 20 mg tablet 20 mg PO DAILY LEG swelling 30 days #30 tabs 01/08/25 gabapentin 300 mg capsule (Neurontin) 300 mg PO TID 30 days #90 caps 01/08/25 pantoprazole 40 mg tablet,delayed release 40 mg PO BID 90 days #180 tabs 01/08/25 sucralfate 1 gram tablet 1 g PO 4X/DAY 60 days #240 tabs 01/08/25 tizanidine 2 mg tablet 4 mg (2 x 2 mg) PO QHS 14 days #28 tabs 01/08/25 Hospital Course Operations None Procedures EGD, EKG, Transthoracic echo and - (Chest x-ray x 2, venous Doppler study) Summary of Care Provided Minutes Spent on Discharge: 44 Hospital Course: Patient is a 69-year-old male who presented to [facility] ED on 01/02/2025 with shortness of breath with exertion. Hospital course as noted below. Patient discharged home with home health care in stable condition on 01/08. 1. Acute blood loss anemia secondary to upper GI bleed ? GI followed. Hemoglobin 4.4 on admit, prior baseline around 13. Initially given units of blood and admission with repeat hemoglobin still only 6.2. Has received 6 units of blood total with good improvement in hemoglobin, most recent hemoglobin 10.0 on 01/06. EGD on 01/06 showed nonbleeding duodenal ulcers, otherwise no gross lesions in the stomach and normal esophagus. Per GI, will treat with Protonix 40 mg p.o. twice daily indefinitely and use Sucralfate tablets 1 g 4 times daily for 2 months. Hemoglobin remained stable around 9-10 for remainder of hospitalization. Recommend repeat CBC in 1 to 2 weeks to ensure hemoglobin remains stable. 2. Acute hypoxic and hypercapnic respiratory failure, improving ? Wet Roller followed. Patient required transfer up to the ICU early in the admission due to worsening hypoxia and confusion. ABG showed pCO2 in the 70s and pO2 58. Patient was placed on BiPAP but given his severe claustrophobia he did not tolerate this initially, so he was moved up to the ICU and started on a Precedex drip. Per industrial seamstress, suspect respiratory failure was multifactorial secondary to undiagnosed obstructive lung disease, LILY, obesity hypoventilation syndrome, pulmonary edema from HFpEF is low and concern for pneumonia. Was initiated on IV steroids but became delirious on 01/06, so was de-escalated to prednisone. Completed 7-day course of antibiotics and steroids while inpatient, no need for these medications on discharge. De-escalated to p.o. Lasix on 01/08 as noted below. Completed oxygen testing on day of discharge and patient required 2 L nasal cannula continuously, prescription sent. Patient treated with PAP therapy at night and with naps while here and per industrial seamstress, recommend sleep study in the outpatient setting when able. 3. New onset acute HFpEF ? Chest x-ray showed interstitial edema with small to moderate right-sided pleural effusion. BNP elevated at 1400. D-dimer was elevated but CTA chest was deferred due to GABE as well as patient's reported severe claustrophobia with both MRI and CT scans. Echo shows EF 60%, stage I diastolic dysfunction, mild concentric LV hypertrophy, no other concerning findings. Bilateral lower extremity duplex ultrasound negative. Suspect volume overload multifactorial from severe anemia as above and uncontrolled hypertension. Given 6 units of blood since admission which contributed to worsening volume overload. Volume overload improved during hospitalization on IV Lasix. Stable to de-escalate to p.o. Lasix 40 mg daily on 01/08 in preparation for discharge. 4. Delirium, resolved ? Wet Roller followed as above. Patient with new onset delirium noted on the morning of 01/06. Patient was alert but repeating nonsensical phrases and not answering questions appropriately. Suspected that IV steroids were the main contributor so they were discontinued. Patient returned to baseline for mental status standpoint on 01/07, resolved. 5. GABE with mild hyperkalemia, resolved ? Creatinine 1.66, potassium 5.3 on admit. No EKG changes of hyperkalemia noted. Baseline creatinine appears to be around 1.1. Suspect primarily prerenal etiology due to severe anemia as above though may have some degree of cardiorenal syndrome given CHF exacerbation as above. Improved with IV diuresis, back to baseline creatinine on 01/07. 6. Acute on chronic debility ? PT/OT/case management followed. Patient lives at home with his and son. Reports having a very sedentary lifestyle and spends most time in his chair. Activity has been even more limited recently due to shortness of breath with exertion. Therapy scores have been fairly poor since admission, though with mild improvement over the past few days. Patient would qualify for SNF but is adamant that he would like to return home on discharge. Discharged home with home health care in stable condition on 01/08. 7. Sacral ulcer ? Patient's family reported concern for developing sacral ulcer. Evaluated in the ED and appears to be at worst a stage II sacral ulcer with no open wound noted. No need for wound care consult. Used frequent turns and pressure offloading while inpatient. Chronic medical conditions: ? Class III obesity: BMI 41 on admit. Complicated hospital course and care. ? Hypertension: Home lisinopril held on admission given GABE as above. GABE resolved and blood pressure up to the 150s systolic on 01/07, so home lisinopril restarted. ? Chronic low back pain: Stable. Continue home nortriptyline. ? Type 2 diabetes mellitus with neuropathy: Glucose 149 on admit. A1c 6.7%. Treated with sliding scale insulin with meals while inpatient with adequate glucose control. Okay to resume home metformin on discharge. Continue home gabapentin. Total clinical time spent by myself addressing the patient's medical issues, reviewing all the data, and collaborating with patient's care team: 44 minutes. Physical Exam Const alert, oriented x3 and no apparent distress Constitutional Narrative: Elderly male, class III obesity, mildly fatigued appearing but improved from admission, alert and oriented x 3, otherwise sitting back comfortably in bedside chair, conversing normally, in no acute distress. General Appearance: cooperative and comfortable HEENT normocephalic, head/scalp atraumatic, hearing grossly normal bilaterally, nasal mucous membranes and turbinates normal and moist oral mucous membranes Eyes PERRL, EOMs intact bilaterally and conjunctivae normal Neck full ROM Chest inspection of chest normal Resp normal respiratory effort and no use of accessory muscles Resp Narrative: Breathing comfortably on 2L NC at rest. Mildly diminished breath sounds in bilateral lung bases but otherwise good air movement throughout with no wheezing noted. Improved from admission. Cardio regular rate, regular rhythm, no murmurs and peripheral pulses 2+ throughout GI normal to inspection, nondistended, normoactive bowel sounds, soft to palpation, non-tender and non-distended Back/Spine normal ROM Extremity Extremity Narrative: +1-2 nonpitting lower extremity swelling noted bilaterally, stable. Mild chronic venous stasis changes noted bilaterally. Neuro moves all extremities and no focal motor deficits Speech: speech normal Psych mental status grossly normal Weight / BMI Weight Weight: 142.3 kg Body Mass Index (BMI) 40.2 ABG / Lab / Microbiology Data 01/08/25 05:15 01/08/25 05:15 Laboratory: Laboratory Results - last 24 hr 01/07/25 16:43: POC Glucose 151 H 01/07/25 21:03: POC Glucose 160 H 01/08/25 05:15: WBC 9.4, RBC 3.40 L, Hgb 9.1 L, Hct 29.4 L, MCV 86.5, MCH 26.8 L, MCHC 31.0 L, RDW Std Deviation 57.1 H, RDW Coeff of Jm 19.3 H, Plt Count 224, MPV 9.3, Sodium 141, Potassium 3.4, Chloride 100, Carbon Dioxide 31.8, Anion Gap 9, BUN 36 H, Creatinine 1.02, Estim Creat Clear Calc 104.16, Est GFR (MDRD) Non-Af 80, BUN/Creatinine Ratio 35.4 H, Glucose 116 H, Calcium 8.5 01/08/25 11:28: POC Glucose 194 H Microbiology: Microbiology 01/04/25 19:20 Blood Culture (Wb) - Left Hand Blood Culture - Preliminary No growth in 48 hours. 01/04/25 19:15 Blood Culture (Wb) - Anticubital Right Blood Culture - Preliminary No growth in 48 hours. 01/02/25 14:32 Stool Stool Occult Blood ([place]) - Final Occult Blood Positive D/C Instructions DC O2, CPAP, BIPAP Needs Home O2 Discharge instructions: Yes Type of respiratory needs?: Oxygen Oxygen frequency: Continuous Continuous oxygen liters per minute: 2 DC home with Oxygen: Yes Home O2 MD Review: I have reviewed the oxygen testing, and the patient qualifies for home oxygen equipment and portability. The patient is mobile in the home and the community. Meaningful Use Info Meaningful Use Meaningful Use Diagnoses (Choose all that apply): CHF CHF GAGAN/ARB ordered at discharge?: Yes Reason GAGAN/ARB not ordered?: Normal EF Documented LVEF (%): 60 Discharge Plan Admission Admit Date/Time: 01/02/25 16:31 Primary Reason for Your Visit: Shortness of breath with exertion Attending Provider: Keyur Camacho Primary Care Provider: [facility] Consulting Providers: Keyur Camacho; Eduardo Zamarripa; Attila Oneal; Friend,Bhupinder; Twyla Ramirez; Janie Fischer; Clementina Smiley Instructions Additional Instructions / Restrictions: Please take Protonix twice daily indefinitely and sucralfate 1 g 4 times daily for the next 2 months for your duodenal ulcers. Please take Lasix 20 mg daily going forward. Do not use ibuprofen going forward for pain control as this can worsen duodenal ulcers. Continue your other home indications as prescribed. Follow-up with your PCP as needed. Discharge Orders/Prescriptions Prescriptions: New tizanidine 2 mg Tablet 4 mg PO QHS 14 Days Qty: 28 0RF pantoprazole 40 mg Tablet,Delayed Release (Dr/Ec) 40 mg PO BID 90 Days Qty: 180 0RF sucralfate 1 gram tablet 1 g PO 4X/DAY 60 Days Qty: 240 0RF Continued atorvastatin 40 MG tablet 40 mg PO QHS metformin 500 MG tablet 1,000 mg PO BID nortriptyline 10 MG capsule 20 mg PO BID cholecalciferol (vitamin D3) 5,000 UNIT capsule 5,000 unit PO DAILY albuterol sulfate 2.5 mg /3 mL (0.083 %) solution for nebulization 2.5 mg inhalation Q6H PRN (Reason: shortness of breath or wheezing) lisinopril 30 mg tablet 30 mg PO DAILY Asmanex Twisthaler 220 mcg/ actuation (120) aerosol powdr breath activated 2 inh inhalation BID diclofenac sodium 1 % gel 2 g topical BID Rx Instructions: APPLY MEASURED ON DOSING CARD ondansetron 4 mg tablet,disintegrating 4 mg PO Q12H PRN (Reason: MODERATE NAUSEA) ketoconazole 2 % cream 1 applic topical BID cetirizine 10 mg tablet 10 mg PO DAILY PRN (Reason: allergy symptoms) Eucerin Cream 1 applic topical DAILY zinc oxide-petrolatum 20-51 % paste 1 applic topical BID Patient Comments: REMOVE PETROLIUM OINTMENT ONLY WITH MINERAL OIL Changed gabapentin [Neurontin] 300 MG capsule 300 mg PO TID 30 Days Qty: 90 0RF furosemide 20 mg tablet 20 mg PO DAILY 30 Days Qty: 30 0RF Discontinued aspirin 81 MG tablet,chewable 81 mg PO DAILY ibuprofen [I-Prin] 200 mg tablet 400 mg PO Q6H PRN (Reason: pain) Referrals / Follow Up: FriendBhupinder DO [Med Staff - Active Staff, Gastroenterology] [facility] [Primary Care Provider, None] Disposition Disposition (needs filled in before D/C Order can be placed): Home Health Service Charges/Coding Visit Charges Inpatient E&M: 92550 Disch Hosp >30min
--- NOTE | 2025-01-08 11:40 | PCM.HOSP.N ---
Hospitalist Note I have reviewed the oxygen testing, and this patient qualifies for the home equipment and portability. The patient is mobile in the home and the community.
--- NOTE | 2025-01-08 12:10 | CASEMGMT ---
Hospitalist reports that the pt will be discharging today. [facility] notified and still plans to start care tomorrow. Per the medical underwriter, pt qualifies for 2L of oxygen continuously. Rx signed by Dr Camacho. O2 Rx, o2 testing, and hospitalist's documentation sent to [facility] via [employer] at this time. RN CM to the pt's room at this time. Informed the pt to call [employer] once he gets home so they can deliver the remaining oxygen equipment. Pt states understanding. Pt also encouraged to remind his to bring in the pt's MCR card for scanning (This sql report writer provided [facility] and [facility] with pt's ID of [id number]). Pt also informed that [facility] will be delivering a portable tank to bedside prior to DC. Pt reminded that [facility] will be starting care tomorrow and that they will call with a time. Pt states understanding and denies any further DC needs or concerns. Pt states that his will be at [facility] around 1300. Pt's RN updated.
--- NOTE | 2025-01-08 16:39 | CASEMGMT ---
Prior to the patient's discharge from the hospital, portable oxygen equipment was delivered to the patient's room from [facility]. The patient was informed by [facility] (and this RN CM) to call [facility] to arrange for the delivery of the remaining oxygen equipment. Pt subsequently DC'd home. Initially, pt was not set up with the [facility] due to the patient's smoking history. Pt stated to this RN CM that he was smoking cigarettes up until the admission. Pt preferred [facility] due to this. This magazine writer misinformed the pt that his [facility] insurance would be in network with [facility]. This RN CM received a TC from Mallorie at [facility] stating that they will not deliver the remaining equipment to the patient's home unless the patient is willing to SP due to being unable to bill the patient's VA or [facility] insurances. Mallorie reports that the patient's SP cost would be 270$ and that this would cover the patient for one one-month supply. TC to the pt. Pt refuses to pay the SP cost. Pt states that he will get oxygen supplies through his [employer]. Pt then states, The rest is none of your business on what I do. This RN CM inquired with the pt if the pt would be willing to try to get set up through the VA for home oxygen, regardless of smoking history. Pt states, ?Sure.? Pt agreed to go through the prerequisite paperwork with this magazine writer over the phone. Questioned if anyone smokes in the home. Pt was very hesitant to answer the question. However, the patient stated that nobody smokes in the home. Pt consented to this RN CM signing the paperwork on his behalf. O2 rx signed by Dr Camacho. O2 Rx, oxygen testing, demo sheet, and required VA paperwork faxed to the [place] Home oxygen program @ [phone]. Confirmed the fax processed successfully. TC to [facility]. [facility] states that they cannot deliver the equipment without an order from the VA. [facility] states that the earliest they can deliver the equipment is tomorrow, 01/09. TC to the [place] Home oxygen program, no answer as they are closed at this time. TC back to the pt and updated the pt that the VA may be able to deliver the oxygen equipment tomorrow. This RN CM encouraged the pt to follow up with his VA PCP BRIAN in the case that the VA refuses to deliver the home oxygen equipment. This RN CM encouraged the pt to check his oxygen levels frequently with a pulse ox. However, pt states, I am not concerned about that right now. This RN CM informed the importance of wearing the needed additional oxygen to help prevent hypoxia and potential hospital readmission. Pt states again that he will be wearing home oxygen through his hinduism and states that, The rest of none of your concern. This RN CM inquired if there were any additional questions, concerns, or needs that the patient had. Pt declined. TC to [facility] and notified the agency of the situation. [facility] customer service coordinator states that they will notify the patient's RN, who will be visiting the patient tomorrow. Informed the HH agency that this RN CM will be off from work tomorrow. TC back to Mallorie at [facility] and updated on the situation. This magazine writer also notified the [facility] Care [employer] Proofer Apprentice, RN DEANGELO team, and Dr Camacho. Margy PERRY RN, CM
== END 2025-01-08 14:20 | disposition home health service (06) | DRG 377 ==
LOC: ED 16:35 → PCU 16:42 → ICU 01-04 18:45
PROVIDERS: Anesthesiology; Internal Medicine; Internal Medicine Gastroenterology; Student in an Organized Health Care Education/Training Program; Admitting Provider Hospitalist; Emergency Provider Surgery; Visit Provider Hospitalist
PROC: 0DJ08ZZ Inspection of Upper Intestinal Tract, Via Natural or Artificial Opening Endoscopic (ICD-10-PCS; CPT 43235; principal; 2025-01-06 14:55)
DX: K92.2 Gastrointestinal hemorrhage, unspecified (principal); J96.01 Acute respiratory failure with hypoxia; J96.02 Acute respiratory failure with hypercapnia; G93.41 Metabolic encephalopathy; I50.31 Acute diastolic (congestive) heart failure; Z68.41 Body mass index [BMI] 40.0-44.9, adult; J44.1 Chronic obstructive pulmonary disease with (acute) exacerbation; I13.0 Hypertensive heart and chronic kidney disease with heart failure and stage 1 through stage 4 chronic kidney disease, or unspecified chronic kidney disease; D68.32 Hemorrhagic disorder due to extrinsic circulating anticoagulants; D62 Acute posthemorrhagic anemia; N17.9 Acute kidney failure, unspecified; E66.2 Morbid (severe) obesity with alveolar hypoventilation; L89.152 Pressure ulcer of sacral region, stage 2; E11.40 Type 2 diabetes mellitus with diabetic neuropathy, unspecified; E87.5 Hyperkalemia; F17.210 Nicotine dependence, cigarettes, uncomplicated; E78.5 Hyperlipidemia, unspecified; M54.50 Low back pain, unspecified; R19.5 Other fecal abnormalities; E66.813 Obesity, class 3; F40.240 Claustrophobia; G89.29 Other chronic pain; R79.89 Other specified abnormal findings of blood chemistry; Z79.1 Long term (current) use of non-steroidal anti-inflammatories (NSAID); Z79.82 Long term (current) use of aspirin; Z79.84 Long term (current) use of oral hypoglycemic drugs; Z79.51 Long term (current) use of inhaled steroids; Z79.899 Other long term (current) drug therapy; Z86.0100 Personal history of colon polyps, unspecified
CPT/HCPCS: 36415; 36569; 36600; 71045; 71046; 80048; 80053; 82140; 82274; 82607; 82728; 82747; 82803; 82962; 83036; 83540; 83550; 83880; 84484; 85014; 85018; 85025; 85027; 85379; 85610; 85730; 86850; 86900; 86901; 87040; 88305; 88342; 93005; 93306; 93970; 94002; 94003; 94640; 94668; 94762; 97162; 97167; 97530; 99285; J2185; P9016; P9040; Q9957; A4216; J0612; J1938; J2405